=== PATIENT | male | born 1960 | race Caucasian/White ===

== ENCOUNTER 2019-04-18 15:38 | Inpatient (IN) | payer MEDICARE ==
[~2019-04-18] VITALS: Ht 175.3 cm; Wt 68.5 kg
[2019-04-18] MEDS ORDERED: ONDANSETRON HCL INJ 2MG/ML 2ML 2 MG/ML VIAL IV STA (15:40)
[2019-04-18] MEDS ORDERED: SODIUM CHLORIDE 0.9% 1000ML 1,000 ML IV STA ×2 (15:40→18:19)
--- OUTSIDE RECORDS SUMMARY | 2019-04-18 15:42 | XMS REPORT ---
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 4.5-12.5 RED BLOOD CELL (test code=RBC) 3.98 mill/mm3 4.0-5.8 HEMOGLOBIN (test code=HGB) 11.4 gram/dL 13.0-17.5 HEMATOCRIT (test code=HCT) 34.4 % 42.0-52.0 MEAN CELL VOLUME (test code=MCV) 86.4 fL 80-98 MEAN CELL HGB (test code=MCH) 28.6 picogram 27.0-33.0 MEAN CELL HGB CONCETRATION (test code=MCHC) 33.1 gram/dL 33.0-36.0 RED CELL DISTRIBUTION WIDTH (test code=RDW) 13.8 % 11.6-16.2 PLATELET COUNT (test code=PLT) 105 K/mm3 150-450 MEAN PLATELET VOLUME (test code=MPV) 11.0 fL 6.7-11.0 PT WAS A HARD STICK, WAS TOLD TO COME AFTER LUNCH. [facility] [place] [facility] V.LAB.PR [id number] 12:31:00* Test Item Value Reference Range Comments GLUBED (test code=GLUBED) 33 mg/dL 74-106 Test performed as P.O.C. by nursing staff.[facility] certified [facility] [id number] 12:10:00* Test Item Value Reference Range Comments GLUBED (test code=GLUBED) 27 mg/dL 74-106 Test performed as P.O.C. by nursing staff.Performed by certified power barker operator at [facility] [id number] 12:10:00* Test Item Value Reference Range Comments GLUBED (test code=GLUBED) 31 mg/dL 74-106 Test performed as P.O.C. by nursing staff.Performed by certified power barker operator [facility]~ [id number] 08:33:00* Test Item Value Reference Range Comments GLUBED (test code=GLUBED) 207 mg/dL 74-106 Performed by certified power barker operator at [facility] [id number] 21:46:00* Test Item Value Reference Range Comments GLUBED (test code=GLUBED) 233 mg/dL 74-106 Performed by certified power barker operator at [facility] [id number] 16:02:00* Test Item Value Reference Range Comments GLUBED (test code=GLUBED) 75 mg/dL 74-106 Performed by certified power barker operator at [facility] [id number] 11:42:00* Test Item Value Reference Range Comments GLUBED (test code=GLUBED) 285 mg/dL 74-106 Performed by certified power barker operator at [facility] [id number] 09:13:00* Test Item Value Reference Range Comments GLUBED (test code=GLUBED) 295 mg/dL 74-106 Performed by certified power barker operator at [facility] [id number] 19:55:00* Test Item Value Reference Range Comments GLUBED (test code=GLUBED) 143 mg/dL 74-106 Performed by certified power barker operator at [facility] [id number] 17:13:00* Test Item Value Reference Range Comments GLUBED (test code=GLUBED) 83 mg/dL 74-106 Performed by certified power barker operator at [facility] [id number] 12:12:00* Test Item Value Reference Range Comments GLUBED (test code=GLUBED) 243 mg/dL 74-106 Performed by certified power barker operator at [facility] [id number] 08:24:00* Test Item Value Reference Range Comments GLUBED (test code=GLUBED) 357 mg/dL 74-106 Performed by certified power barker operator at [facility] [id number] 20:51:00* Test Item Value Reference Range Comments GLUBED (test code=GLUBED) 288 mg/dL 74-106 [facility]formed by certified power barker operator [facility]~ T4 [id number] 18:07:00* Test Item Value Reference Range Comments T4 FREE (test code=T4F) 1.39 ng/dL 0.76-1.46 THYROID STIMULATING [id number] 18:07:00* Test Item Value Reference Range Comments THYROID STIMULATING HORMONE (test code=TSH) 0.255 uIU/mL 0.36-3.74 TSH REFERENCE RANGES: EUTHYROID: 0.35 - 4.3 mIU/mL HYPO : > 5.5 mIU/mL HYPER : < 0.35 mIU/mL [id number] 17:17:00* Test Item Value Reference Range Comments GLYCOSYLATED HEMOGLOBIN (HA1C) (test code=GLYHGB) 13.3 % HbA1 4.8-6.0 ESTIMATED AVERAGE GLUCOSE (test code=EAG) 335 MG/DL [id number] 15:45:00* Test Item Value Reference Range Comments GLUBED (test code=GLUBED) 349 mg/dL 74-106 Performed by certified power barker operator [facility] BASIC METABOLIC [id number] 07:08:00* Test Item Value Reference Range Comments SODIUM (test code=NA) 136 mmol/L 136-145 POTASSIUM (test code=K) 4.1 mmol/L 3.5-5.1 CHLORIDE (test code=CL) 103.0 mmol/L 98-107 CARBON DIOXIDE (test code=CO2) 21.0 mmol/L 21-32 ANION GAP (test code=GAP) 16.1 10-20 GLUCOSE (test code=GLU) 276 mg/dL 74-106 BLOOD UREA NITROGEN (test code=BUN) 23 mg/dL 7-18 GLOMERULAR FILTRATION RATE (test code=GFR) > 60 mL/min >=60 Estimated GFR by using Modified MDRD formula.Chronic kidney disease is defined as either kidney damageor GFR <60 mL/min/1.73 m2 for >3 months. CREATININE (test code=CREAT) 1.20 mg/dL 0.7-1.3 BUN/CREATININE RATIO (test code=BUN/CREA) 19.2 10-20 CALCIUM (test code=CA) 8.9 mg/dL 8.5-10.1 [id number] 07:02:00* Test Item Value Reference Range Comments GLYCOSYLATED HEMOGLOBIN (HA1C) (test code=GLYHGB) 13.2 % HbA1 4.8-6.0 ESTIMATED AVERAGE GLUCOSE (test code=EAG) 332 MG/DL BASIC METABOLIC [id number] 07:02:00* Test Item Value Reference Range Comments SODIUM (test code=NA) 136 mmol/L 136-145 POTASSIUM (test code=K) 4.1 mmol/L 3.5-5.1 CHLORIDE (test code=CL) 103.0 mmol/L 98-107 CARBON DIOXIDE (test code=CO2) mmol/L 21-32 ANION GAP (test code=GAP) 10-20 GLUCOSE (test code=GLU) mg/dL 74-106 BLOOD UREA NITROGEN (test code=BUN) mg/dL 7-18 GLOMERULAR FILTRATION RATE (test code=GFR) mL/min >=60 CREATININE (test code=CREAT) mg/dL 0.7-1.3 BUN/CREATININE RATIO (test code=BUN/CREA) 10-20 CALCIUM (test code=CA) mg/dL 8.5-10.1 CBC W/AUTO [id number] 06:46:00* Test Item Value Reference Range Comments WHITE BLOOD CELL (test code=WBC) 7.4 K/mm3 4.5-12.5 RED BLOOD CELL (test code=RBC) 4.41 mill/mm3 4.0-5.8 HEMOGLOBIN (test code=HGB) 12.6 gram/dL 13.0-17.5 HEMATOCRIT (test code=HCT) 38.6 % 42.0-52.0 MEAN CELL VOLUME (test code=MCV) 87.5 fL 80-98 MEAN CELL HGB (test code=MCH) 28.6 picogram 27.0-33.0 MEAN CELL HGB CONCETRATION (test code=MCHC) 32.6 gram/dL 33.0-36.0 RED CELL DISTRIBUTION WIDTH (test code=RDW) 13.7 % 11.6-16.2 RED CELL DISTRIBUTION WIDTH SD (test code=RDW-SD) 43.7 fL 37.0-51.0 PLATELET COUNT (test code=PLT) 140 K/mm3 150-450 MEAN PLATELET VOLUME (test code=MPV) 10.1 fL 6.7-11.0 NEUTROPHIL % (test code=NT%) 57.8 % 39.0-69.0 IMMATURE GRANULOCYTE % (test code=IG%) 0.5 % 0.0-5.0 LYMPHOCYTE % (test code=LY%) 33.9 % 25.0-55.0 MONOCYTE % (test code=MO%) 6.9 % 0.0-10.0 EOSINOPHIL % (test code=EO%) 0.5 % 0.0-5.0 BASOPHIL % (test code=BA%) 0.4 % 0.0-1.0 NUCLEATED RBC % (test code=NRBC%) 0.0 % 0-0 NEUTROPHIL # (test code=NT#) 4.25 K/mm3 1.8-7.7 IMMATURE GRANULOCYTE # (test code=IG#) 0.04 x10 3/uL 0-0.03 LYMPHOCYTE # (test code=LY#) 2.50 K/mm3 1.0-5.0 MONOCYTE # (test code=MO#) 0.51 K/mm3 0-0.8 EOSINOPHIL # (test code=EO#) 0.04 K/mm3 0.0-0.5 BASOPHIL # (test code=BA#) 0.03 K/mm3 0.0-0.2 NUCLEATED RBC # (test code=NRBC#) 0.00 K/mm3 0.0-0.1 MANUAL DIFF REQUIRED (test code=MDIFF) NO [id number] 20:23:00* Test Item Value Reference Range Comments GLUBED (test code=GLUBED) 234 mg/dL 74-106 [facility] certified power barker operator [facility]~ [id number] 16:19:00* Test Item Value Reference Range Comments GLUBED (test code=GLUBED) 209 mg/dL 74-106 Performed by certified power barker operator at [facility] [id number] 14:12:00* Test Item Value Reference Range Comments GLUBED (test code=GLUBED) 254 mg/dL 74-106 Performed by certified power barker operator at [facility] [id number] 06:45:00* Test Item Value Reference Range Comments GLUBED (test code=GLUBED) 275 mg/dL 74-106 Performed by certified power barker operator at [facility] - CT ABD PELVIS W/O [id number] 02:27:00 Name: ISAIAS RAMOS JR [facility] : 1960 Age/S: 57 / M [address] [facility] Unit #: [id number] Loc: [place] [address] Phys: Cydney Antonio MD Acct: [id number] Dis Date: Status: ADM IN PHONE #: [phone] Exam Date: 09/01/2018114 FAX #: [phone] Reason: vomiting, diarrhea EXAMS: CPT CODE: [id number] CT ABD PELVIS W/O CONT 17179 AFTER HOURS SERVICE ON: 09/01/2018 2:[address] Scan of the Abdomen and Pelvis Without Contrast Location Code M12 History: vomiting, diarrhea Technique: Axial and reconstructed coronal scans were performed on a helical scanner pre oral and IV contrast. Study is limited secondary to lack of oral and IV contrast. One or more of the following dose reduction techniques were used: Automated exposure control, adjustment of the mA and/or kV according to patient size, and/or utilization of iterative reconstruction technique. Findings: There is trace pericardial effusion. Liver, gallbladder, pancreas and spleen are within normal limits. Adrenal glands are symmetric. There is no hydronephrosis or nephrolithiasis in either kidney. There is fullness in the right collecting system due to a circumferential wall thickening of the urinary bladder. There is faint surrounding stranding. Diverticular changes noted in the sigmoid colon without evidence of diverticulitis. There is no bowel obstruction or free air. The appendix is not visua lized. IMPRESSION: Mild fullness in the right renal co llecting system due to circumferential thickening of the bladder which m ay be due to cystitis, however further evaluation is recommended. Diffe rential diagnosis includes chronic obstruction or less likely underlying malignancy. Nonvisualization of the appendix. Trace pericardial effusion. PAGE 1 Si gned Report (CONTINUED) Name: ISAIAS RAMOS [facility] : 1960 Age/S: 57 / M [address] [facility] Unit #: [id number] Loc: [place] [address] Phys: Cydney Antonio MD Acct: [id number] Dis Date: Status: ADM IN PHONE #: [phone] Exam Date: 09/01/2018 011 FAX #: [phone] Reason: vomiting, diarrhea EXAMS: CPT CODE: [id number] CT ABD PELVIS W/O CONT 12886 <Continued> at 0227 Reported and signed by: Brigida Lewis M.D. CC: Cydney Antonio MD; Jan Corado Technologist:JAN JAMISON CTDI: DLP: Trnscb Date/Time: 09/01/2018 (022) [email or web address] Orig Print D/T: S: 09/01/2018 (0230) PAGE 2 Signed Report BASIC METABOLIC [id number] 00:09:00* Test Item Value Reference Range Comments SODIUM (test code=NA) 137 mmol/L 136-145 POTASSIUM (test code=K) 4.1 mmol/L 3.5-5.1 CHLORIDE (test code=CL) 99.0 mmol/L 98-107 CARBON DIOXIDE (test code=CO2) 21.0 mmol/L 21-32 ANION GAP (test code=GAP) 21.1 10-20 GLUCOSE (test code=GLU) 291 mg/dL 74-106 BLOOD UREA NITROGEN (test code=BUN) 30 mg/dL 7-18 GLOMERULAR FILTRATION RATE (test code=GFR) 52 mL/min >=60 Estimated GFR by using Modified MDRD formula.Chronic kidney disease is defined as either kidney damageor GFR <60 mL/min/1.73 m2 for >3 months. CREATININE (test code=CREAT) 1.40 mg/dL 0.7-1.3 BUN/CREATININE RATIO (test code=BUN/CREA) 22.1 10-20 CALCIUM (test code=CA) 8.9 mg/dL 8.5-10.1 HEPATIC FUNCTION [id number] 00:09:00* Test Item Value Reference Range Comments TOTAL PROTEIN (test code=PROT) 7.6 gram/dL 6.4-8.2 ALBUMIN (test code=ALB) 3.6 g/dL 3.4-5.0 GLOBULIN (test code=GLOB) 4.0 gram/dL 2.7-4.2 ALBUMIN/GLOBULIN RATIO (test code=A/G) 0.9 0.75-1.50 BILIRUBIN TOTAL (test code=BILT) 1.00 mg/dL 0.0-1.0 BILIRUBIN DIRECT (test code=BILD) 0.33 mg/dL 0.0-0.20 SGOT/AST (test code=AST) 20 IUnit/L 15-37 SGPT/ALT (test code=ALT) 34 IUnit/L 12-78 ALKALINE PHOSPHATASE TOTAL (test code=ALKP) 90 IUnit/L 45-117 Note change in reference range due to change in reagent. CREATINE KINASE (CK)2018-09-01 00:09:00* Test Item Value Reference Range Comments CREATINE KINASE (CK) (test code=CK) 19 IUnit/L 26-208 [id number] 00:09:00* Test Item Value Reference Range Comments LIPASE (test code=LIP) 107 U/L 73.0-393.0 [id number] 00:09:00* Test Item Value Reference Range Comments MAGNESIUM (test code=MAG) 2.3 mg/dL 1.8-2.4 [id number] 00:09:00* Test Item Value Reference Range Comments TROPONIN-I (test code=TROPI) <0.015 ng/mL 0-0.045 [id number] 00:09:00* Test Item Value Reference Range Comments ALCOHOL (test code=ALC) < 3 mg/dL 0.0-3.0 INTERPRETIVE DATA NOTE: POSITIVE SCREENING RESULTS SHOULD BE CONSIDERED PRESUMPTIVE.WHEN COLLECTED FOR MEDICAL PURPOSES ONLY. SPECIMEN WILL NOTBE COLLECTED BY CHAIN OF CUSTODY.IF A CONFIRMATION OF POSITIVE RESULTS IS DESIRED, ACONFIRMATION TEST MUST BE REQUESTED BY THE PHYSICIAN AT ANADDITIONAL CHARGE TO THE PATIENT. BASIC METABOLIC [id number] 23:46:00* Test Item Value Reference Range Comments SODIUM (test code=NA) 137 mmol/L 136-145 POTASSIUM (test code=K) 4.1 mmol/L 3.5-5.1 CHLORIDE (test code=CL) 99.0 mmol/L 98-107 CARBON DIOXIDE (test code=CO2) mmol/L 21-32 ANION GAP (test code=GAP) 10-20 GLUCOSE (test code=GLU) mg/dL 74-106 BLOOD UREA NITROGEN (test code=BUN) mg/dL 7-18 GLOMERULAR FILTRATION RATE (test code=GFR) mL/min >=60 CREATININE (test code=CREAT) mg/dL 0.7-1.3 BUN/CREATININE RATIO (test code=BUN/CREA) 10-20 CALCIUM (test code=CA) mg/dL 8.5-10.1 HEPATIC FUNCTION [id number] 23:46:00* Test Item Value Reference Range Comments TOTAL PROTEIN (test code=PROT) gram/dL 6.4-8.2 ALBUMIN (test code=ALB) g/dL 3.4-5.0 GLOBULIN (test code=GLOB) gram/dL 2.7-4.2 ALBUMIN/GLOBULIN RATIO (test code=A/G) 0.75-1.50 BILIRUBIN TOTAL (test code=BILT) mg/dL 0.0-1.0 BILIRUBIN DIRECT (test code=BILD) mg/dL 0.0-0.20 SGOT/AST (test code=AST) IUnit/L 15-37 SGPT/ALT (test code=ALT) IUnit/L 12-78 ALKALINE PHOSPHATASE TOTAL (test code=ALKP) IUnit/L 45-117 CREATINE KINASE (CK)2018-08-31 23:46:00* Test Item Value Reference Range Comments CREATINE KINASE (CK) (test code=CK) IUnit/L 26-208 [id number] 23:46:00* Test Item Value Reference Range Comments LIPASE (test code=LIP) U/L 73.0-393.0 [id number] 23:46:00* Test Item Value Reference Range Comments MAGNESIUM (test code=MAG) mg/dL 1.8-2.4 [id number] 23:46:00* Test Item Value Reference Range Comments TROPONIN-I (test code=TROPI) ng/mL 0-0.045 [id number] 23:46:00* Test Item Value Reference Range Comments ALCOHOL (test code=ALC) mg/dL 0-3 URINALYSIS [id number] 23:42:00* Test Item Value Reference Range Comments UA COLOR (test code=COLU) YELLOW YELLOW UA APPEARANCE (test code=APPU) Cloudy CLEAR UA GLUCOSE DIPSTICK (test code=DGLUU) >1000 (4+) mg/dL NEGATIVE UA BILIRUBIN DIPSTICK (test code=BILU) NEGATIVE mg/dL NEGATIVE UA KETONE DIPSTICK (test code=KETU) 100 (3+) mg/dL NEGATIVE UA SPECIFIC GRAVITY (test code=SGU) 1.025 1.001-1.035 UA BLOOD DIPSTICK (test code=ZOILA) >1.0 mg/dL NEGATIVE UA PH DIPSTICK (test code=ALEXY) 5.5 5.0-8.0 UA PROTEIN DIPSTICK (test code=PROU) 100 (2+) mg/dL NEGATIVE UA UROBILINIOGEN DIPSTICK (test code=URO) Normal mg/dL NEGATIVE UA NITRITE DIPSTICK (test code=CHATO) NEGATIVE NEGATIVE UA LEUKOCYTE ESTERASE W REFLEX (test code=LEUUR) 500 Ivtaly/uL (3+) Vitaly/uL NEGATIVE UA WBC (test code=WBCU) 51-100 per HPF 0-5 UA RBC (test code=RBCU) >200 #/HPF 0-5 UA WBC CLUMPS (test code=WBCUCL) >10 /HPF NONE UA EPITHELIAL CELLS (test code=EPIU) FEW per HPF FEW UA BACTERIA (test code=BACU) MODERATE #/HPF NONE Urine Source? Clean CatchDRUGS OF ABUSE SCREEN [id number] 23:42:00* Test Item Value Reference Range Comments URN COCAINE (test code=COCAURN) NEGATIVE <300 ng/mL URN CANNABINOIDS (test code=CANNABURN) POSITIVE <50 ng/mL This test provides only a preliminary test result. A morespecific alternate chemical method must be used in order toobtain a confirmed analytical result. Gas chromatography/mass spectrometry (GC/MS) is thepreferred confirmatory method. Other chemical confirmationmethods are available. Clinical consideration and professional judgment should be applied to any drug of abusetest result, particularly when preliminary positive resultsare used.Unconfirmed screening results must not be used fornon-medical purposes (e.g., employment testing, legaltesting). URN AMPHETAMINE (test code=AMPHETURN) NEGATIVE <1000 ng/mL URN BARBITURATE (test code=BARBITURN) NEGATIVE <200 ng/mL URN BENZODIAZEPINE (test code=BENZOURN) NEGATIVE <200 ng/mL URN OPIATES (test code=OPIATURN) NEGATIVE <300 ng/mL URN PHENCYCLIDINE (PCP) (test code=PHENCURN) NEGATIVE <25 ng/mL URN METHADONE (test code=METHAURN) NEGATIVE <300 ng/mL Urine Source? Clean Catch- XR CHEST 1 [id number] 23:31:00 FAX: Cydney Mistry [phone] [place]: St: REG FAX: Jan Corado [phone] Name: ISAIAS RAMOS JR [facility] : 1960 Age/S: 57/M [address] [facility] Unit #: [id number] Loc: [place] [address] Phys: Cydney Antonio MD Acct: [id number] Dis Date: Status: REG ER PHONE #: [phone] Exam Date: 08/31/2018 2243 FAX #: [phone] Reason: WEAKNESS EXAMS: CPT CODE: [id number] XR CHEST 1 V 85925 REASON FOR EXAM: WEAKNESS Exam Order Date: 08/31/2018 10:39 PM Ordering Evie.: Cydney Antonio MD PROCEDURE: - XR CHEST 1 V COMPARISON: FINDINGS: The lungs are clear. There is no pleural effusion or pneumothorax. Pulmonary vascularity is within normal limits. Cardiomediastinal silhouette is normal in size for technique. The aorta is slightly tortu ous. Degenerative changes are present in the bilateral acromioclav icular joints. The visualized upper abdomen is within normal limits. IMPRESSION: No acute cardiopulmonary process. at 2331 Reported and signed by: Jamison Bowser MD CC: Cydney Antonio MD; Jan Corado Technologist: RT SOFIA Trnscrd Date/Time/By: 08/31/2018 (4490) : By: [id number] Orig Print D/T: S: 08/31/2018 (8008) PAGE 1 Signed Report PROTHROMBIN [id number] 23:23:00* Test Item Value Reference Range Comments PROTHROMBIN TIME PATIENT (test code=PTP) 11.5 seconds 9.0-14.0 INTERNATIONAL NORMAL RATIO (test code=INR) 1.0 0.8-1.2 The therapeutic range for oral anticoagulant therapy formost indications is an international normalized ratio (INR)of between 2.0 and 3.0. The recommended therapeutic INRrange for various clinical situations is listed below: Clinical Situation INR range Pulmonary e mbolism treatment (2.0-3.0)Venous thrombosis treatmentVenous thrombosis prophylaxis (high risk surgery)Prevention of systemic embolism from: Acute myocardial infarction Valvular heart disease Atrial fibrillation Mechanical prosthetic heart valves (2.5-3.5) IS PATIENT ON ANTICOAGULANTS? NTHROMBOPLASTIN TIME [id number] 23:23:00* Test Item Value Reference Range Comments THROMBOPLASTIN TIME PARTIAL (test code=PTT) 30.0 seconds 25.0-36.5 IS PATIENT ON ANTICOAGULANTS? N- CT C-SPINE W/O [id number] 23:18:00 Name: ISAIAS RAMOS [facility] : 1960 Age/S: 57 / M [address] [facility] Unit #: [id number] Loc: [place] [address] Phys: Bharathi Antonio MD Acct: [id number] Di s Date: Status: REG ER PHONE #: Exam Date: 08/31/2018 6918 FAX #: Reason: fall EXAMS: CPT CODE: [id number] CT C-SPINE W/O CONTRAST 56724 AFTER HOURS SERVICE ON: 11:[address] Scan of the Brain Without Contrast Location Code M12 History: fall Technique: Scans were performed on a helical scanner pre IV contrast only. The study is l imited secondary to lack of intravenous contrast, particularly for evaluat ion of masses. One or more of the following dose reduction techni ques were used: Automated exposure control, adjustment of the mA and/or kV according to patient size, and/or utilization of iterative reconstruction technique. Findings: There is no hydrocephal us. Basal cisterns are patent. There is no intracranial hyperdense hemorrh age. There is no midline shift or mass effect. No effacement of the coreas-w carmel matter junction to indicate acute infarction. There are chronic ische karlee white matter changes. There is no skull fracture. Impr ession: No skull fracture or intracranial hemorrhage. AFTER HOURS SERVICE ON: 08/31/2018 11:[address] of the Cervical Spine Without Contrast Location Code M12 History: fall Technique: Scans were obtained on a helical scanner pre IV contrast PAGE 1 Signed Report (CONTINUED) Name: ISAIAS RAMOS [facility] : 1960 Age/S: 57 / M [address] [facility] Unit #: [id number] Loc: [place] [address] Phys: Cydney Antonio MD Acct: [id number] Dis Date: Status: REG ER PHONE #: [phone] Exam D ate: 08/31/2018 2249 FAX #: [phone] Reason: fall EXAMS: CPT CODE: [id number] CT C-SPINE W/O CONTRAST 54641 <Continued> only. One or more of the following dose reduction techniques were used: Automated exposure control, adjustment of the mA and/or kV according to patient size, and/or utilization of iterative reconstruction technique. Findings: Craniocervical junction is intact. Atlantoaxial joint is unremarkable. C1 ring is normal. Dens is intact. Transverse processes, pedicles and lamina are intact. No compression fracture or pathologic lesions. There is advanced cervical spondylosis including disc space narrowing and endplate spurring in C4-C5 and C5-C6. Central canal stenosis noted at these levels addition to multilevel foraminal stenoses due to uncovertebral hypertrophy. The foraminal stenoses are fairly advanced at the level of C3-C4, C4-C5 and C5-C6. Impression: No cervical spine fracture. at 2318 Reported and signed by: Brigida Lewis M.D. CC: Cydney Antonio MD; Jan Corado Technologist:SANJU DE LEON, RT; [facility] CTDI: DLP: Trnscb Date/Time: 08/31/2018 (2317) t.SDR.[email or web address] Orig Print D/T: S: 08/31/2018 (3232) PAGE 2 Signed Report - CT HEAD/BRAIN W/O [id number] 23:18:00 Name: ISAIAS RAMOS JR [facility] : 1960 Age/S: 57 / M [address] [facility] Unit #: [id number] Loc: [place] [address] Phys: Cydney Antonio MD Acct: [id number] Dis Date: Status: REG ER PHONE #: [phone] Exam Date: 08/31/2018 2249 FAX #: [phone] Reason: fall EXAMS: CPT CODE: [id number] CT HEAD/BRAIN W/O CONT 54939 AFTER HOURS SERVICE ON: 08/31/2018 11:[address] Scan of the Brain Without Contrast Location Code M12 History: fall Technique: Scans were performed on a helical scanner pre IV contrast only. The study is limited secondary to lack of intravenous contrast, particularly for evaluation of masses. One or more of the following dose reduction techniques were used: Automated exposure control, adjustment of the mA and/or kV according to patient size, and/or utilization of iterative reconstruction technique. Findings: There is no hydrocephalus. Basal cisterns are patent. There is no intracranial hyperdense hemorrhage. There is no midline shift or mass effect. No effacement of the coreas-white matter junction to indicate acute infarction. There are chronic ischemic white matter changes. There is no skull fracture. Impression: No skull fracture or intracranial hemorrhage. AFTER HOURS SERVICE ON: 08/31/2018 11:[address] of the Cervical Spine Without Contrast Location Code M12 History: fall Technique: Scans were obtained on a helical scanner pre IV contrast PAGE 1 Signed Report (CONTINUED) Name: ISAIAS RAMOS JR [facility] : 1960 Age/S: 57 / M [address] [facility] Unit #: [id number] Loc: [place] [address] Phys: Cydney Antonio MD Acct: [id number] Dis Date: Status: REG ER PHONE #: [phone] Exam Date: 08/31/20183 FAX #: [phone] Reason: fall EXAMS: CPT CODE: [id number] CT HEAD/BRAIN W/O CONT 32865 <Continued> only. One or more of the following dose reduction techniques were used: Automated exposure control, adjustment of the mA and/or kV according to patient size, and/or utilization of iterative reconstruction technique. Findings: Craniocervical junction is intact. Atlantoaxial joint is unremarkable. C1 ring is normal. Dens is intact. Transverse processes, pedicles and lamina are intact. No compression fracture or pathologic lesions. There is advanced cervical spondylosis including disc space narrowing and endplate spurring in C4-C5 and C5-C6. Central canal stenosis noted at these levels addition to multilevel foraminal stenoses due to uncovertebral hypertrophy. The foraminal stenoses are fairly advanced at the level of C3-C4, C4-C5 and C5-C6. Impression: No cervical spine fracture. at 2318 Reported and signed by: Brigida Lewis M.D. CC: Cydney Antonio MD; Jan Corado Technologist:SANJU DE LEON RT; Ana Maria Montenegro CTDI: DLP: Trnscb Date/Time: 08/31/2018 (2318) [email or web address] Orig Print D/T: S: 08/31/2018 (5424) PAGE 2 Signed Report URINALYSIS [id number] 23:17:00* Test Item Value Reference Range Comments UA COLOR (test code=COLU) YELLOW YELLOW UA APPEARANCE (test code=APPU) Cloudy CLEAR UA GLUCOSE DIPSTICK (test code=DGLUU) >1000 (4+) mg/dL NEGATIVE UA BILIRUBIN DIPSTICK (test code=BILU) NEGATIVE mg/dL NEGATIVE UA KETONE DIPSTICK (test code=KETU) 100 (3+) mg/dL NEGATIVE UA SPECIFIC GRAVITY (test code=SGU) 1.025 1.001-1.035 UA BLOOD DIPSTICK (test code=ZOILA) >1.0 mg/dL NEGATIVE UA PH DIPSTICK (test code=ALEXY) 5.5 5.0-8.0 UA PROTEIN DIPSTICK (test code=PROU) 100 (2+) mg/dL NEGATIVE UA UROBILINIOGEN DIPSTICK (test code=URO) Normal mg/dL NEGATIVE UA NITRITE DIPSTICK (test code=CHATO) NEGATIVE NEGATIVE UA LEUKOCYTE ESTERASE W REFLEX (test code=LEUUR) 500 Vitaly/uL (3+) Vitaly/uL NEGATIVE UA WBC (test code=WBCU) 51-100 per HPF 0-5 UA RBC (test code=RBCU) >200 #/HPF 0-5 UA WBC CLUMPS (test code=WBCUCL) >10 /HPF NONE UA EPITHELIAL CELLS (test code=EPIU) FEW per HPF FEW UA BACTERIA (test code=BACU) MODERATE #/HPF NONE Urine Source? Clean CatchDRUGS OF ABUSE SCREEN [id number] 23:17:00* Test Item Value Reference Range Comments URN COCAINE (test code=COCAURN) <300 ng/mL URN CANNABINOIDS (test code=CANNABURN) <50 ng/mL URN AMPHETAMINE (test code=AMPHETURN) <1000 ng/mL URN BARBITURATE (test code=BARBITURN) <200 ng/mL URN BENZODIAZEPINE (test code=BENZOURN) <200 ng/mL URN OPIATES (test code=OPIATURN) <300 ng/mL URN PHENCYCLIDINE (PCP) (test code=PHENCURN) <25 ng/mL URN METHADONE (test code=METHAURN) <300 ng/mL Urine Source? Clean CatchCBC W/O [id number] 23:12:00* Test Item Value Reference Range Comments WHITE BLOOD CELL (test code=WBC) 8.3 K/mm3 4.5-12.5 RED BLOOD CELL (test code=RBC) 4.68 mill/mm3 4.0-5.8 HEMOGLOBIN (test code=HGB) 13.4 gram/dL 13.0-17.5 HEMATOCRIT (test code=HCT) 40.1 % 42.0-52.0 MEAN CELL VOLUME (test code=MCV) 85.7 fL 80-98 MEAN CELL HGB (test code=MCH) 28.6 picogram 27.0-33.0 MEAN CELL HGB CONCETRATION (test code=MCHC) 33.4 gram/dL 33.0-36.0 RED CELL DISTRIBUTION WIDTH (test code=RDW) 13.8 % 11.6-16.2 PLATELET COUNT (test code=PLT) 178 K/mm3 150-450 MEAN PLATELET VOLUME (test code=MPV) 10.3 fL 6.7-11.0 CBC W/O [id number] 23:11:00* Test Item Value Reference Range Comments WHITE BLOOD CELL (test code=WBC) K/mm3 4.5-12.5 RED BLOOD CELL (test code=RBC) mill/mm3 4.0-5.8 HEMOGLOBIN (test code=HGB) 13.4 gram/dL 13.0-17.5 HEMATOCRIT (test code=HCT) % 42.0-52.0 MEAN CELL VOLUME (test code=MCV) fL 80-98 MEAN CELL HGB (test code=MCH) picogram 27.0-33.0 MEAN CELL HGB CONCETRATION (test code=MCHC) gram/dL 33.0-36.0 RED CELL DISTRIBUTION WIDTH (test code=RDW) % 11.6-16.2 PLATELET COUNT (test code=PLT) K/mm3 150-450 MEAN PLATELET VOLUME (test code=MPV) fL 6.7-11.0 [id number] 23:26:00* Test Item Value Reference Range Comments GLUBED (test code=GLUBED) 412 mg/dL 74-106 Performed by certified power barker operator at [facility] [id number] 23:26:00* Test Item Value Reference Range Comments GLUBED (test code=GLUBED) 481 mg/dL 74-106 Performed by certified power barker operator at [facility] DRUGS OF ABUSE SCREEN [id number] 22:51:00* Test Item Value Reference Range Comments UA PH DIPSTICK (test code=ALEXY) 7.0 5.0-8.0 URN COCAINE (test code=COCAURN) NEGATIVE <300 ng/mL URN CANNABINOIDS (test code=CANNABURN) POSITIVE <50 ng/mL This test provides only a preliminary test result. A morespecific alternate chemical method must be used in order toobtain a confirmed analytical result. Gas chromatography/mass spectrometry (GC/MS) is thepreferred confirmatory method. Other chemical confirmationmethods are available. Clinical consideration and professional judgment should be applied to any drug of abusetest result, particularly when preliminary positive resultsare used.Unconfirmed screening results must not be used fornon-medical purposes (e.g., employment testing, legaltesting). URN AMPHETAMINE (test code=AMPHETURN) NEGATIVE <1000 ng/mL URN BARBITURATE (test code=BARBITURN) NEGATIVE <200 ng/mL URN BENZODIAZEPINE (test code=BENZOURN) NEGATIVE <200 ng/mL URN OPIATES (test code=OPIATURN) NEGATIVE <300 ng/mL URN PHENCYCLIDINE (PCP) (test code=PHENCURN) NEGATIVE <25 ng/mL URN METHADONE (test code=METHAURN) NEGATIVE <300 ng/mL URINALYSIS [id number] 22:50:00* Test Item Value Reference Range Comments UA COLOR (test code=COLU) Light-Yellow YELLOW UA APPEARANCE (test code=APPU) CLEAR CLEAR UA GLUCOSE DIPSTICK (test code=DGLUU) >1000 (4+) mg/dL NEGATIVE UA BILIRUBIN DIPSTICK (test code=BILU) NEGATIVE mg/dL NEGATIVE UA KETONE DIPSTICK (test code=KETU) NEGATIVE mg/dL NEGATIVE UA SPECIFIC GRAVITY (test code=SGU) 1.029 1.001-1.035 UA BLOOD DIPSTICK (test code=ZOILA) 1.0 mg/dL (3+) mg/dL NEGATIVE UA PH DIPSTICK (test code=ALEXY) 7.0 5.0-8.0 UA PROTEIN DIPSTICK (test code=PROU) 10 (Trace) mg/dL NEGATIVE UA UROBILINIOGEN DIPSTICK (test code=URO) Normal mg/dL NEGATIVE UA NITRITE DIPSTICK (test code=CHATO) NEGATIVE NEGATIVE UA LEUKOCYTE ESTERASE W REFLEX (test code=LEUUR) 500 Vitaly/uL (3+) Vitaly/uL NEGATIVE UA WBC (test code=WBCU) 151-200 per HPF 0-5 UA RBC (test code=RBCU) >20 #/HPF 0-5 UA EPITHELIAL CELLS (test code=EPIU) FEW per HPF FEW UA BACTERIA (test code=BACU) FEW #/HPF NONE UA HYALINE CAST (test code=HYALU) 0-2 #/LPF 0-5 Urine Source? Clean CatchDRUGS OF ABUSE SCREEN [id number] 22:45:00* Test Item Value Reference Range Comments UA PH DIPSTICK (test code=ALEXY) 5.0-8.0 URN COCAINE (test code=COCAURN) NEGATIVE <300 ng/mL URN CANNABINOIDS (test code=CANNABURN) POSITIVE <50 ng/mL This test provides only a preliminary test result. A morespecific alternate chemical method must be used in order toobtain a confirmed analytical result. Gas chromatography/mass spectrometry (GC/MS) is thepreferred confirmatory method. Other chemical confirmationmethods are available. Clinical consideration and professional judgment should be applied to any drug of abusetest result, particularly when preliminary positive resultsare used.Unconfirmed screening results must not be used fornon-medical purposes (e.g., employment testing, legaltesting). URN AMPHETAMINE (test code=AMPHETURN) NEGATIVE <1000 ng/mL URN BARBITURATE (test code=BARBITURN) NEGATIVE <200 ng/mL URN BENZODIAZEPINE (test code=BENZOURN) NEGATIVE <200 ng/mL URN OPIATES (test code=OPIATURN) NEGATIVE <300 ng/mL URN PHENCYCLIDINE (PCP) (test code=PHENCURN) NEGATIVE <25 ng/mL URN METHADONE (test code=METHAURN) NEGATIVE <300 ng/mL [id number] 22:39:00* Test Item Value Reference Range Comments TROPONIN-I (test code=TROPI) <0.015 ng/mL 0-0.045 BASIC METABOLIC [id number] 18:55:00* Test Item Value Reference Range Comments SODIUM (test code=NA) 134 mmol/L 136-145 POTASSIUM (test code=K) 4.9 mmol/L 3.5-5.1 CHLORIDE (test code=CL) 98.0 mmol/L 98-107 CARBON DIOXIDE (test code=CO2) 30.0 mmol/L 21-32 ANION GAP (test code=GAP) 10.9 10-20 GLUCOSE (test code=GLU) 550 mg/dL 74-106 Results called to by ANTHONY 06/21/18 1855Critical results verified and read back by Nurse? Y BLOOD UREA NITROGEN (test code=BUN) 26 mg/dL 7-18 GLOMERULAR FILTRATION RATE (test code=GFR) 52 mL/min >=60 Estimated GFR by using Modified MDRD formula.Chronic kidney disease is defined as either kidney damageor GFR <60 mL/min/1.73 m2 for >3 months. CREATININE (test code=CREAT) 1.40 mg/dL 0.7-1.3 BUN/CREATININE RATIO (test code=BUN/CREA) 18.6 10-20 CALCIUM (test code=CA) 9.2 mg/dL 8.5-10.1 [id number] 18:55:00* Test Item Value Reference Range Comments TROPONIN-I (test code=TROPI) <0.015 ng/mL 0-0.045 BASIC METABOLIC [id number] 18:31:00* Test Item Value Reference Range Comments SODIUM (test code=NA) 134 mmol/L 136-145 POTASSIUM (test code=K) 4.9 mmol/L 3.5-5.1 CHLORIDE (test code=CL) 98.0 mmol/L 98-107 CARBON DIOXIDE (test code=CO2) mmol/L 21-32 ANION GAP (test code=GAP) 10-20 GLUCOSE (test code=GLU) mg/dL 74-106 BLOOD UREA NITROGEN (test code=BUN) mg/dL 7-18 GLOMERULAR FILTRATION RATE (test code=GFR) mL/min >=60 CREATININE (test code=CREAT) mg/dL 0.7-1.3 BUN/CREATININE RATIO (test code=BUN/CREA) 10-20 CALCIUM (test code=CA) 9.2 mg/dL 8.5-10.1 [id number] 18:31:00* Test Item Value Reference Range Comments TROPONIN-I (test code=TROPI) ng/mL 0-0.045 - XR RIBS UNI 2 V [id number] 18:31:00 FAX: Eugene Carreon [place]: St: REG FAX: Jan Corado [facility] [phone] Name: RACHELISAIAS [facility] : 1960 Age/S: 57/M [address] [facility] Unit #: [id number] Loc: [place] [address] Phys: Eugene Carreon MD Acct: [id number] Dis Date: Status: REG ER PHONE #: [phone] Exam Date: 06/21/2018 1757 FAX #: [phone] Reason: fall, pain EXAMS: CPT CODE: [id number] XR RIBS UNI 2 [place] [id number] REASON FOR EXAM: fall, pain EXAM ORDER DATE: 06/21/2018 5:34 PM Ordering Amrit: Eugene Carreon MD PROCEDURE: - XR RIBS UNI 2 V LT FINDINGS: 5 views of the frontal view of the chest and left ribs were obtained. The osseous structures are unremarkable in size and shape. No evidence of pneumothorax or hemothorax. No evidence of displaced rib fracture. IMPRESSION: Unremarkable left ribs at 1831 Reported and signed by: José Luis Patino M.D. CC: Eugene Carreon MD; Jan Corado [facility] Technologist: Ayala Russ) Trnscrd Date/Time/By: 06/21/2018 (183) : By: Jc Orig Print D/T: S: 06/21/2018 (1833) PAGE 1 Signed Report - XR CHEST 1 [id number] 18:31:00 FAX: Jessica Pereira NP [place]: St: REG FAX: Jan Corado [place] [phone] Name: ISAIAS RAMOS JR [facility] : 1960 Age/S: 57/M [address] [facility] Unit #: [id number] Loc: [place] [address] Phys: Jessica Pereira NP Acct: [id number] Dis Date: Status: REG ER PHONE #: [phone] Exam Date: 06/21/2018 1757 FAX #: [phone] Reason: CHEST PAIN EXAMS: CPT CODE: [id number] XR CHEST 1 V [id number] REASON FOR EXAM: CHEST PAIN EXAM ORDER DATE: 06/21/2018 5:20 PM Ordering M.Lawanda: Jessica Pereira NP PROCEDURE: - XR CHEST 1 V COMPARISON: FINDINGS: Po rtable AP frontal view of the chest obtained at 5:46 PM shows clear lungs without evidence of consolidation. There is no evidence of effusion. The h eart size is within normal limits. Pulmonary vasculatures are unremarkable . IMPRESSION: No active disease. Electronically Sig gama by Amrit Patino on 06/21/2018 at 1831 Reported and s igned by: José Luis Patino M.D. CC: Jessica Pereira EXEC. CREATIVE DIRECTOR; Jan Corado Technologist: Ayala Russ) Trnscrd Date/Time/By: 06/21/2018 (1830) : By: Jc Orig Print D/T: S: 06/21/2018 (183) PAGE 1 Signed Report CBC W/O [id number] 18:20:00* Test Item Value Reference Range Comments WHITE BLOOD CELL (test code=WBC) 6.9 K/mm3 4.5-12.5 RED BLOOD CELL (test code=RBC) 4.36 mill/mm3 4.0-5.8 HEMOGLOBIN (test code=HGB) 12.6 gram/dL 13.0-17.5 HEMATOCRIT (test code=HCT) 39.7 % 42.0-52.0 MEAN CELL VOLUME (test code=MCV) 91.1 fL 80-98 MEAN CELL HGB (test code=MCH) 28.9 picogram 27.0-33.0 MEAN CELL HGB CONCETRATION (test code=MCHC) 31.7 gram/dL 33.0-36.0 RED CELL DISTRIBUTION WIDTH (test code=RDW) 14.5 % 11.6-16.2 PLATELET COUNT (test code=PLT) 154 K/mm3 150-450 MEAN PLATELET VOLUME (test code=MPV) 11.1 fL 6.7-11.0 [id number] 20:37:00* Test Item Value Reference Range Comments GLUBED (test code=GLUBED) 89 mg/dL 74-106 Performed by certified power barker operator at [facility] [id number] 20:37:00* Test Item Value Reference Range Comments GLUBED (test code=GLUBED) 36 mg/dL 74-106 [facility]formed by certified power barker [facility]~ [id number] 20:37:00* Test Item Value Reference Range Comments GLUBED (test code=GLUBED) 34 mg/dL 74-106 Test performed as P.O.C. by nursing staff.Performed by certified power barker operator [facility]~ [id number] 20:37:00* Test Item Value Reference Range Comments GLUBED (test code=GLUBED) 37 mg/dL 74-106 [facility]formed by certified power barker operator [facility]~ [id number] 16:33:00* Test Item Value Reference Range Comments GLUBED (test code=GLUBED) 88 mg/dL 74-106 Performed by certified power barker operator at [facility] [id number] 13:13:00* Test Item Value Reference Range Comments GLUBED (test code=GLUBED) 148 mg/dL 74-106 Performed by certified power barker operator at [facility] [id number] 08:36:00* Test Item Value Reference Range Comments GLUBED (test code=GLUBED) 187 mg/dL 74-106 Performed by certified power barker operator at [facility] [id number] 08:36:00* Test Item Value Reference Range Comments GLUBED (test code=GLUBED) 185 mg/dL 74-106 Performed by certified power barker operator at [facility] [id number] 17:07:00* Test Item Value Reference Range Comments GLUBED (test code=GLUBED) 200 mg/dL 74-106 Performed by certified power barker operator at [facility] [id number] 11:56:00* Test Item Value Reference Range Comments GLUBED (test code=GLUBED) 123 mg/dL 74-106 Performed by certified power barker operator at [facility] [id number] 08:30:00* Test Item Value Reference Range Comments GLUBED (test code=GLUBED) 154 mg/dL 74-106 Performed by certified power barker operator at [facility] [id number] 21:12:00* Test Item Value Reference Range Comments GLUBED (test code=GLUBED) 103 mg/dL 74-106 Performed by certified power barker operator at [facility] [id number] 20:04:00* Test Item Value Reference Range Comments GLUBED (test code=GLUBED) 64 mg/dL 74-106 Performed by certified power barker operator at [facility] [id number] 17:02:00* Test Item Value Reference Range Comments GLUBED (test code=GLUBED) 80 mg/dL 74-106 Performed by certified power barker operator at [facility] [id number] 12:13:00* Test Item Value Reference Range Comments GLUBED (test code=GLUBED) 117 mg/dL 74-106 Performed by certified power barker operator at [facility] [id number] 08:39:00* Test Item Value Reference Range Comments GLUBED (test code=GLUBED) 260 mg/dL 74-106 Performed by certified power barker operator at [facility] [id number] 21:02:00* Test Item Value Reference Range Comments GLUBED (test code=GLUBED) 130 mg/dL 74-106 Performed by certified power barker operator at [facility] [id number] 17:32:00* Test Item Value Reference Range Comments GLUBED (test code=GLUBED) 80 mg/dL 74-106 Performed by certified power barker operator at [facility] [id number] 16:38:00* Test Item Value Reference Range Comments GLUBED (test code=GLUBED) 78 mg/dL 74-106 Performed by certified power barker operator at [facility] [id number] 13:12:00* Test Item Value Reference Range Comments GLUBED (test code=GLUBED) 192 mg/dL 74-106 Performed by certified power barker operator at [facility] [id number] 08:59:00* Test Item Value Reference Range Comments GLUBED (test code=GLUBED) 140 mg/dL 74-106 Performed by certified power barker operator at [facility] [id number] 07:53:00* Test Item Value Reference Range Comments GLUBED (test code=GLUBED) 209 mg/dL 74-106 Performed by certified power barker operator at [facility] [id number] 07:53:00* Test Item Value Reference Range Comments GLUBED (test code=GLUBED) 59 mg/dL 74-106 Performed by certified power barker operator at [facility] [id number] 07:53:00* Test Item Value Reference Range Comments GLUBED (test code=GLUBED) 57 mg/dL 74-106 Performed by certified power barker operator at [facility] [id number] 07:53:00* Test Item Value Reference Range Comments GLUBED (test code=GLUBED) 53 mg/dL 74-106 Performed by certified power barker operator at [facility] [id number] 21:29:00* Test Item Value Reference Range Comments GLUBED (test code=GLUBED) 152 mg/dL 74-106 Performed by certified power barker operator at [facility] [id number] 12:08:00* Test Item Value Reference Range Comments GLUBED (test code=GLUBED) 107 mg/dL 74-106 Performed by certified power barker operator at [facility] [id number] 09:19:00* Test Item Value Reference Range Comments GLUBED (test code=GLUBED) 83 mg/dL 74-106 Performed by certified power barker operator at [facility] BASIC METABOLIC [id number] 07:30:00* Test Item Value Reference Range Comments SODIUM (test code=NA) 143 mmol/L 136-145 POTASSIUM (test code=K) 4.0 mmol/L 3.5-5.1 CHLORIDE (test code=CL) 114.0 mmol/L 98-107 CARBON DIOXIDE (test code=CO2) 24.0 mmol/L 21-32 ANION GAP (test code=GAP) 9.0 10-20 GLUCOSE (test code=GLU) 108 mg/dL 74-106 BLOOD UREA NITROGEN (test code=BUN) 17 mg/dL 7-18 GLOMERULAR FILTRATION RATE (test code=GFR) > 60 mL/min >=60 Estimated GFR by using Modified MDRD formula.Chronic kidney disease is defined as either kidney damageor GFR <60 mL/min/1.73 m2 for >3 months. CREATININE (test code=CREAT) 1.10 mg/dL 0.7-1.3 BUN/CREATININE RATIO (test code=BUN/CREA) 15.5 10-20 CALCIUM (test code=CA) 8.0 mg/dL 8.5-10.1 CBC W/AUTO [id number] 07:22:00* Test Item Value Reference Range Comments WHITE BLOOD CELL (test code=WBC) 6.8 K/mm3 4.5-12.5 RED BLOOD CELL (test code=RBC) 3.39 mill/mm3 4.0-5.8 HEMOGLOBIN (test code=HGB) 9.8 gram/dL 13.0-17.5 HEMATOCRIT (test code=HCT) 29.9 % 42.0-52.0 MEAN CELL VOLUME (test code=MCV) 88.2 fL 80-98 MEAN CELL HGB (test code=MCH) 28.9 picogram 27.0-33.0 MEAN CELL HGB CONCETRATION (test code=MCHC) 32.8 gram/dL 33.0-36.0 RED CELL DISTRIBUTION WIDTH (test code=RDW) 13.7 % 11.6-16.2 RED CELL DISTRIBUTION WIDTH SD (test code=RDW-SD) 44.3 fL 37.0-51.0 PLATELET COUNT (test code=PLT) 119 K/mm3 150-450 MEAN PLATELET VOLUME (test code=MPV) 10.2 fL 6.7-11.0 NEUTROPHIL % (test code=NT%) 67.2 % 39.0-69.0 IMMATURE GRANULOCYTE % (test code=IG%) 0.4 % 0.0-5.0 LYMPHOCYTE % (test code=LY%) 20.8 % 25.0-55.0 MONOCYTE % (test code=MO%) 9.3 % 0.0-10.0 EOSINOPHIL % (test code=EO%) 1.9 % 0.0-5.0 BASOPHIL % (test code=BA%) 0.4 % 0.0-1.0 NUCLEATED RBC % (test code=NRBC%) 0.0 % 0-0 NEUTROPHIL # (test code=NT#) 4.55 K/mm3 1.8-7.7 IMMATURE GRANULOCYTE # (test code=IG#) 0.03 x10 3/uL 0-0.03 LYMPHOCYTE # (test code=LY#) 1.41 K/mm3 1.0-5.0 MONOCYTE # (test code=MO#) 0.63 K/mm3 0-0.8 EOSINOPHIL # (test code=EO#) 0.13 K/mm3 0.0-0.5 BASOPHIL # (test code=BA#) 0.03 K/mm3 0.0-0.2 NUCLEATED RBC # (test code=NRBC#) 0.00 K/mm3 0.0-0.1 MANUAL DIFF REQUIRED (test code=MDIFF) NO [id number] 21:07:00* Test Item Value Reference Range Comments GLUBED (test code=GLUBED) 123 mg/dL 74-106 Performed by certified power barker operator at [facility] [id number] 17:47:00* Test Item Value Reference Range Comments GLUBED (test code=GLUBED) 74 mg/dL 74-106 Performed by certified power barker operator at [facility] [id number] 12:03:00* Test Item Value Reference Range Comments GLUBED (test code=GLUBED) 173 mg/dL 74-106 Performed by certified power barker operator at [facility] [id number] 09:09:00* Test Item Value Reference Range Comments GLUBED (test code=GLUBED) 242 mg/dL 74-106 Performed by certified power barker operator at [facility] - CT HEAD/BRAIN W/O [id number] 04:25:00 Name: ISAIAS RAMOS JR [facility] : 1960 Age/S: 57 / M Gabe Simon Unit #: [id number] Loc: [place] [address] Phys: Jan Corado MD Acct: [id number] Dis Date: Status: ADM IN PHONE #: [phone] Exam Date: 06/05/2018422 FAX #: [phone] Reason: C/O FALL EXAMS: CPT CODE: [id number] CT HEAD/BRAIN W/O CONT 39800 Exam: CT head without contrast. Location: F6 History: C/O FALL Technique: Unenhanced spiral slices were taken from the base of the skull, through the vertex. One or more of the following dose reduction techniques were used: Automated exposure control, adjustment of the mA and/or kV according to patient size, and/or utilization of iterative reconstruction technique. Findings: No acute intracranial abnormality is identified. The brain parenchyma and the CSF spaces are unremarkable. No mass, midline shift, hemorrhage, hydrocephalus or edema is seen. The visualized paranasal sinuses are clear. The mastoid air cells are well pneumatized. The bony calvarium is intact. Impression: No acute intracranial abnormality. at 0425 Reported and signed by: Manjit Hull M.D. CC: Jan Corado Technologist:Trevor Preston RT(R)(CT) CTDI: DLP: Trnscb Date/Time: 06/05/2018 (424) Javed Orig Print D/T: S: 06/05/2018 (042) CTDI: DLP: PAGE 1 Signed Report T4 [id number] 18:40:00* Test Item Value Reference Range Comments T4 FREE (test code=T4F) 1.27 ng/dL 0.76-1.46 THYROID STIMULATING [id number] 18:40:00* Test Item Value Reference Range Comments THYROID STIMULATING HORMONE (test code=TSH) 0.233 uIU/mL 0.36-3.74 TSH REFERENCE RANGES: EUTHYROID: 0.35 - 4.3 mIU/mL HYPO : > 5.5 mIU/mL HYPER : < 0.35 mIU/mL [id number] 15:23:00* Test Item Value Reference Range Comments GLUBED (test code=GLUBED) 117 mg/dL 74-106 Performed by certified power barker operator at [facility] [id number] 15:05:00* Test Item Value Reference Range Comments GLUBED (test code=GLUBED) 86 mg/dL 74-106 Performed by certified power barker operator at [facility] [id number] 09:01:00* Test Item Value Reference Range Comments GLUBED (test code=GLUBED) 170 mg/dL 74-106 Performed by certified power barker operator at [facility] [id number] 19:49:00* Test Item Value Reference Range Comments GLUBED (test code=GLUBED) 196 mg/dL 74-106 Performed by certified power barker operator at [facility] [id number] 17:01:00* Test Item Value Reference Range Comments GLUBED (test code=GLUBED) 153 mg/dL 74-106 Performed by certified power barker operator at [facility] [id number] 11:59:00* Test Item Value Reference Range Comments GLUBED (test code=GLUBED) 123 mg/dL 74-106 Performed by certified power barker operator at [facility] [id number] 08:30:00* Test Item Value Reference Range Comments GLUBED (test code=GLUBED) 141 mg/dL 74-106 Performed by certified power barker operator at [facility] [id number] 07:08:00* Test Item Value Reference Range Comments GLUBED (test code=GLUBED) 157 mg/dL 74-106 Performed by certified power barker operator at [facility] CBC W/MANUAL [id number] 06:36:00* Test Item Value Reference Range Comments WHITE BLOOD CELL (test code=WBC) 9.3 K/mm3 4.5-12.5 RED BLOOD CELL (test code=RBC) 4.12 mill/mm3 4.0-5.8 HEMOGLOBIN (test code=HGB) 11.8 gram/dL 13.0-17.5 HEMATOCRIT (test code=HCT) 35.8 % 42.0-52.0 MEAN CELL VOLUME (test code=MCV) 86.9 fL 80-98 MEAN CELL HGB (test code=MCH) 28.6 picogram 27.0-33.0 MEAN CELL HGB CONCETRATION (test code=MCHC) 33.0 gram/dL 33.0-36.0 RED CELL DISTRIBUTION WIDTH (test code=RDW) 13.9 % 11.6-16.2 RED CELL DISTRIBUTION WIDTH SD (test code=RDW-SD) 43.7 fL 37.0-51.0 PLATELET COUNT (test code=PLT) 171 K/mm3 150-450 MEAN PLATELET VOLUME (test code=MPV) 10.2 fL 6.7-11.0 IMMATURE GRANULOCYTE % (test code=IG%) 0.5 % 0.0-5.0 NUCLEATED RBC % (test code=NRBC%) 0.0 % 0-0 NEUTROPHIL # (test code=NT#) 5.89 K/mm3 1.8-7.7 IMMATURE GRANULOCYTE # (test code=IG#) 0.05 x10 3/uL 0-0.03 LYMPHOCYTE # (test code=LY#) 2.19 K/mm3 1.0-5.0 MONOCYTE # (test code=MO#) 0.95 K/mm3 0-0.8 EOSINOPHIL # (test code=EO#) 0.17 K/mm3 0.0-0.5 BASOPHIL # (test code=BA#) 0.05 K/mm3 0.0-0.2 NUCLEATED RBC # (test code=NRBC#) 0.00 K/mm3 0.0-0.1 MANUAL DIFF REQUIRED (test code=MDIFF) YES STAIN ACCEPTABILITY (test code=STN ACCEPTABLE) STAIN ACCEPTABLE TOTAL CELLS COUNTED (test code=TCC) 115 #CELLS SEGMENTED NEUTROPHILS (test code=SEG) 61.7 % 39-69 BAND NEUTROPHIL (test code=BAND) 6.1 % 0-10 LYMPHOCYTE (test code=LYMPH) 25.2 % 25-55 REACTIVE LYMPH (test code=RELYMPH) 0 % MONOCYTE (test code=MON) 6.1 % 0-10 EOSINOPHIL (test code=EOS) 0 % 0.0-5.0 BASOPHIL (test code=BASO) 0.9 % 0-1.0 METAMYELOCYTE (test code=META) 0 % 0-0 MYELOCYTE (test code=MYELO) 0 % 0.0-0.0 PROMYELOCYTE (test code=PROM) 0 % 0-0 MORPHOLOGY COMMENT (test code=MOC) NORMAL PLATELET ESTIMATE (test code=PLTEST) ADEQUATE PLATELET MORPHOLOGY (test code=PLTMORPH) NORMAL IMMATURE FORMS (test code=IMMAT) 0 % BASIC METABOLIC [id number] 06:35:00* Test Item Value Reference Range Comments SODIUM (test code=NA) 141 mmol/L 136-145 POTASSIUM (test code=K) 4.7 mmol/L 3.5-5.1 CHLORIDE (test code=CL) 106.0 mmol/L 98-107 CARBON DIOXIDE (test code=CO2) 28.0 mmol/L 21-32 ANION GAP (test code=GAP) 11.7 10-20 GLUCOSE (test code=GLU) 163 mg/dL 74-106 BLOOD UREA NITROGEN (test code=BUN) 25 mg/dL 7-18 GLOMERULAR FILTRATION RATE (test code=GFR) > 60 mL/min >=60 Estimated GFR by using Modified MDRD formula.Chronic kidney disease is defined as either kidney damageor GFR <60 mL/min/1.73 m2 for >3 months. CREATININE (test code=CREAT) 1.20 mg/dL 0.7-1.3 BUN/CREATININE RATIO (test code=BUN/CREA) 20.8 10-20 CALCIUM (test code=CA) 9.0 mg/dL 8.5-10.1 [id number] 06:35:00* Test Item Value Reference Range Comments PHOSPHORUS (test code=PHOS) 4.2 mg/dL 2.5-4.9 [id number] 06:35:00* Test Item Value Reference Range Comments MAGNESIUM (test code=MAG) 2.2 mg/dL 1.8-2.4 VITAMIN [id number] 06:35:00* Test Item Value Reference Range Comments VITAMIN B12 (test code=VITB12) 995 pg/mL 193-986 FOLIC [id number] 06:35:00* Test Item Value Reference Range Comments FOLIC ACID (test code=FOL) 35.1 ng/mL 3.10-17.50 THYROID PROFILE [id number] 06:35:00* Test Item Value Reference Range Comments T3 UPTAKE (test code=T3UP) 34.0 % 30.0-40.0 T4 (THYROXINE) (test code=T4) 11.1 ug/dL 4.5-13.9 T7 (FREE THYROXINE INDEX) (test code=T7) 3.77 FTI 1.3-5.1 THYROID STIMULATING HORMONE (test code=TSH) 0.745 uIU/mL 0.36-3.74 TSH REFERENCE RANGES: EUTHYROID: 0.35 - 4.3 mIU/mL HYPO : > 5.5 mIU/mL HYPER : < 0.35 mIU/mL [id number] 05:50:00* Test Item Value Reference Range Comments GLYCOSYLATED HEMOGLOBIN (HA1C) (test code=GLYHGB) 14.1 % HbA1 4.8-6.0 ESTIMATED AVERAGE GLUCOSE (test code=EAG) 358 MG/DL BASIC METABOLIC [id number] 05:44:00* Test Item Value Reference Range Comments SODIUM (test code=NA) 141 mmol/L 136-145 POTASSIUM (test code=K) 4.7 mmol/L 3.5-5.1 CHLORIDE (test code=CL) 106.0 mmol/L 98-107 CARBON DIOXIDE (test code=CO2) mmol/L 21-32 ANION GAP (test code=GAP) 10-20 GLUCOSE (test code=GLU) mg/dL 74-106 BLOOD UREA NITROGEN (test code=BUN) mg/dL 7-18 GLOMERULAR FILTRATION RATE (test code=GFR) mL/min >=60 CREATININE (test code=CREAT) mg/dL 0.7-1.3 BUN/CREATININE RATIO (test code=BUN/CREA) 10-20 CALCIUM (test code=CA) mg/dL 8.5-10.1 [id number] 05:44:00* Test Item Value Reference Range Comments PHOSPHORUS (test code=PHOS) mg/dL 2.5-4.9 [id number] 05:44:00* Test Item Value Reference Range Comments MAGNESIUM (test code=MAG) mg/dL 1.8-2.4 VITAMIN [id number] 05:44:00* Test Item Value Reference Range Comments VITAMIN B12 (test code=VITB12) pg/mL 193-986 FOLIC [id number] 05:44:00* Test Item Value Reference Range Comments FOLIC ACID (test code=FOL) ng/mL 3.10-17.50 THYROID PROFILE [id number] 05:44:00* Test Item Value Reference Range Comments T3 UPTAKE (test code=T3UP) % 30.0-40.0 T4 (THYROXINE) (test code=T4) ug/dL 4.5-13.9 T7 (FREE THYROXINE INDEX) (test code=T7) FTI 1.3-5.1 THYROID STIMULATING HORMONE (test code=TSH) uIU/mL 0.36-3.74 CBC W/MANUAL [id number] 05:38:00* Test Item Value Reference Range Comments WHITE BLOOD CELL (test code=WBC) 9.3 K/mm3 4.5-12.5 RED BLOOD CELL (test code=RBC) 4.12 mill/mm3 4.0-5.8 HEMOGLOBIN (test code=HGB) 11.8 gram/dL 13.0-17.5 HEMATOCRIT (test code=HCT) 35.8 % 42.0-52.0 MEAN CELL VOLUME (test code=MCV) 86.9 fL 80-98 MEAN CELL HGB (test code=MCH) 28.6 picogram 27.0-33.0 MEAN CELL HGB CONCETRATION (test code=MCHC) 33.0 gram/dL 33.0-36.0 RED CELL DISTRIBUTION WIDTH (test code=RDW) 13.9 % 11.6-16.2 RED CELL DISTRIBUTION WIDTH SD (test code=RDW-SD) 43.7 fL 37.0-51.0 PLATELET COUNT (test code=PLT) 171 K/mm3 150-450 MEAN PLATELET VOLUME (test code=MPV) 10.2 fL 6.7-11.0 IMMATURE GRANULOCYTE % (test code=IG%) 0.5 % 0.0-5.0 NUCLEATED RBC % (test code=NRBC%) 0.0 % 0-0 NEUTROPHIL # (test code=NT#) 5.89 K/mm3 1.8-7.7 IMMATURE GRANULOCYTE # (test code=IG#) 0.05 x10 3/uL 0-0.03 LYMPHOCYTE # (test code=LY#) 2.19 K/mm3 1.0-5.0 MONOCYTE # (test code=MO#) 0.95 K/mm3 0-0.8 EOSINOPHIL # (test code=EO#) 0.17 K/mm3 0.0-0.5 BASOPHIL # (test code=BA#) 0.05 K/mm3 0.0-0.2 NUCLEATED RBC # (test code=NRBC#) 0.00 K/mm3 0.0-0.1 MANUAL DIFF REQUIRED (test code=MDIFF) YES STAIN ACCEPTABILITY (test code=STN ACCEPTABLE) TOTAL CELLS COUNTED (test code=TCC) #CELLS SEGMENTED NEUTROPHILS (test code=SEG) % 39-69 LYMPHOCYTE (test code=LYMPH) % 25-55 MONOCYTE (test code=MON) % 0-10 EOSINOPHIL (test code=EOS) % 0.0-5.0 CABOT RINGS (test code=CAB) MORPHOLOGY COMMENT (test code=MOC) PLATELET ESTIMATE (test code=PLTEST) PLATELET MORPHOLOGY (test code=PLTMORPH) CBC W/MANUAL [id number] 05:38:00* Test Item Value Reference Range Comments WHITE BLOOD CELL (test code=WBC) 9.3 K/mm3 4.5-12.5 RED BLOOD CELL (test code=RBC) 4.12 mill/mm3 4.0-5.8 HEMOGLOBIN (test code=HGB) 11.8 gram/dL 13.0-17.5 HEMATOCRIT (test code=HCT) 35.8 % 42.0-52.0 MEAN CELL VOLUME (test code=MCV) 86.9 fL 80-98 MEAN CELL HGB (test code=MCH) 28.6 picogram 27.0-33.0 MEAN CELL HGB CONCETRATION (test code=MCHC) 33.0 gram/dL 33.0-36.0 RED CELL DISTRIBUTION WIDTH (test code=RDW) 13.9 % 11.6-16.2 RED CELL DISTRIBUTION WIDTH SD (test code=RDW-SD) 43.7 fL 37.0-51.0 PLATELET COUNT (test code=PLT) 171 K/mm3 150-450 MEAN PLATELET VOLUME (test code=MPV) 10.2 fL 6.7-11.0 IMMATURE GRANULOCYTE % (test code=IG%) 0.5 % 0.0-5.0 NUCLEATED RBC % (test code=NRBC%) 0.0 % 0-0 NEUTROPHIL # (test code=NT#) 5.89 K/mm3 1.8-7.7 IMMATURE GRANULOCYTE # (test code=IG#) 0.05 x10 3/uL 0-0.03 LYMPHOCYTE # (test code=LY#) 2.19 K/mm3 1.0-5.0 MONOCYTE # (test code=MO#) 0.95 K/mm3 0-0.8 EOSINOPHIL # (test code=EO#) 0.17 K/mm3 0.0-0.5 BASOPHIL # (test code=BA#) 0.05 K/mm3 0.0-0.2 NUCLEATED RBC # (test code=NRBC#) 0.00 K/mm3 0.0-0.1 MANUAL DIFF REQUIRED (test code=MDIFF) YES STAIN ACCEPTABILITY (test code=STN ACCEPTABLE) TOTAL CELLS COUNTED (test code=TCC) #CELLS SEGMENTED NEUTROPHILS (test code=SEG) % 39-69 LYMPHOCYTE (test code=LYMPH) % 25-55 MONOCYTE (test code=MON) % 0-10 EOSINOPHIL (test code=EOS) % 0.0-5.0 CABOT RINGS (test code=CAB) MORPHOLOGY COMMENT (test code=MOC) PLATELET ESTIMATE (test code=PLTEST) PLATELET MORPHOLOGY (test code=PLTMORPH) CBC W/MANUAL [id number] 05:38:00* Test Item Value Reference Range Comments WHITE BLOOD CELL (test code=WBC) 9.3 K/mm3 4.5-12.5 RED BLOOD CELL (test code=RBC) 4.12 mill/mm3 4.0-5.8 HEMOGLOBIN (test code=HGB) 11.8 gram/dL 13.0-17.5 HEMATOCRIT (test code=HCT) 35.8 % 42.0-52.0 MEAN CELL VOLUME (test code=MCV) 86.9 fL 80-98 MEAN CELL HGB (test code=MCH) 28.6 picogram 27.0-33.0 MEAN CELL HGB CONCETRATION (test code=MCHC) 33.0 gram/dL 33.0-36.0 RED CELL DISTRIBUTION WIDTH (test code=RDW) 13.9 % 11.6-16.2 RED CELL DISTRIBUTION WIDTH SD (test code=RDW-SD) 43.7 fL 37.0-51.0 PLATELET COUNT (test code=PLT) 171 K/mm3 150-450 MEAN PLATELET VOLUME (test code=MPV) 10.2 fL 6.7-11.0 IMMATURE GRANULOCYTE % (test code=IG%) 0.5 % 0.0-5.0 NUCLEATED RBC % (test code=NRBC%) 0.0 % 0-0 NEUTROPHIL # (test code=NT#) 5.89 K/mm3 1.8-7.7 IMMATURE GRANULOCYTE # (test code=IG#) 0.05 x10 3/uL 0-0.03 LYMPHOCYTE # (test code=LY#) 2.19 K/mm3 1.0-5.0 MONOCYTE # (test code=MO#) 0.95 K/mm3 0-0.8 EOSINOPHIL # (test code=EO#) 0.17 K/mm3 0.0-0.5 BASOPHIL # (test code=BA#) 0.05 K/mm3 0.0-0.2 NUCLEATED RBC # (test code=NRBC#) 0.00 K/mm3 0.0-0.1 MANUAL DIFF REQUIRED (test code=MDIFF) YES STAIN ACCEPTABILITY (test code=STN ACCEPTABLE) TOTAL CELLS COUNTED (test code=TCC) #CELLS SEGMENTED NEUTROPHILS (test code=SEG) % 39-69 LYMPHOCYTE (test code=LYMPH) % 25-55 MONOCYTE (test code=MON) % 0-10 EOSINOPHIL (test code=EOS) % 0.0-5.0 MORPHOLOGY COMMENT (test code=MOC) PLATELET ESTIMATE (test code=PLTEST) PLATELET MORPHOLOGY (test code=PLTMORPH) CBC W/MANUAL [id number] 05:38:00* Test Item Value Reference Range Comments WHITE BLOOD CELL (test code=WBC) 9.3 K/mm3 4.5-12.5 RED BLOOD CELL (test code=RBC) 4.12 mill/mm3 4.0-5.8 HEMOGLOBIN (test code=HGB) 11.8 gram/dL 13.0-17.5 HEMATOCRIT (test code=HCT) 35.8 % 42.0-52.0 MEAN CELL VOLUME (test code=MCV) 86.9 fL 80-98 MEAN CELL HGB (test code=MCH) 28.6 picogram 27.0-33.0 MEAN CELL HGB CONCETRATION (test code=MCHC) 33.0 gram/dL 33.0-36.0 RED CELL DISTRIBUTION WIDTH (test code=RDW) 13.9 % 11.6-16.2 RED CELL DISTRIBUTION WIDTH SD (test code=RDW-SD) 43.7 fL 37.0-51.0 PLATELET COUNT (test code=PLT) 171 K/mm3 150-450 MEAN PLATELET VOLUME (test code=MPV) 10.2 fL 6.7-11.0 IMMATURE GRANULOCYTE % (test code=IG%) 0.5 % 0.0-5.0 NUCLEATED RBC % (test code=NRBC%) 0.0 % 0-0 NEUTROPHIL # (test code=NT#) 5.89 K/mm3 1.8-7.7 IMMATURE GRANULOCYTE # (test code=IG#) 0.05 x10 3/uL 0-0.03 LYMPHOCYTE # (test code=LY#) 2.19 K/mm3 1.0-5.0 MONOCYTE # (test code=MO#) 0.95 K/mm3 0-0.8 EOSINOPHIL # (test code=EO#) 0.17 K/mm3 0.0-0.5 BASOPHIL # (test code=BA#) 0.05 K/mm3 0.0-0.2 NUCLEATED RBC # (test code=NRBC#) 0.00 K/mm3 0.0-0.1 MANUAL DIFF REQUIRED (test code=MDIFF) YES STAIN ACCEPTABILITY (test code=STN ACCEPTABLE) TOTAL CELLS COUNTED (test code=TCC) #CELLS SEGMENTED NEUTROPHILS (test code=SEG) % 39-69 LYMPHOCYTE (test code=LYMPH) % 25-55 MONOCYTE (test code=MON) % 0-10 MORPHOLOGY COMMENT (test code=MOC) PLATELET ESTIMATE (test code=PLTEST) PLATELET MORPHOLOGY (test code=PLTMORPH) CBC W/MANUAL [id number] 05:38:00* Test Item Value Reference Range Comments WHITE BLOOD CELL (test code=WBC) 9.3 K/mm3 4.5-12.5 RED BLOOD CELL (test code=RBC) 4.12 mill/mm3 4.0-5.8 HEMOGLOBIN (test code=HGB) 11.8 gram/dL 13.0-17.5 HEMATOCRIT (test code=HCT) 35.8 % 42.0-52.0 MEAN CELL VOLUME (test code=MCV) 86.9 fL 80-98 MEAN CELL HGB (test code=MCH) 28.6 picogram 27.0-33.0 MEAN CELL HGB CONCETRATION (test code=MCHC) 33.0 gram/dL 33.0-36.0 RED CELL DISTRIBUTION WIDTH (test code=RDW) 13.9 % 11.6-16.2 RED CELL DISTRIBUTION WIDTH SD (test code=RDW-SD) 43.7 fL 37.0-51.0 PLATELET COUNT (test code=PLT) 171 K/mm3 150-450 MEAN PLATELET VOLUME (test code=MPV) 10.2 fL 6.7-11.0 IMMATURE GRANULOCYTE % (test code=IG%) 0.5 % 0.0-5.0 NUCLEATED RBC % (test code=NRBC%) 0.0 % 0-0 NEUTROPHIL # (test code=NT#) 5.89 K/mm3 1.8-7.7 IMMATURE GRANULOCYTE # (test code=IG#) 0.05 x10 3/uL 0-0.03 LYMPHOCYTE # (test code=LY#) 2.19 K/mm3 1.0-5.0 MONOCYTE # (test code=MO#) 0.95 K/mm3 0-0.8 EOSINOPHIL # (test code=EO#) 0.17 K/mm3 0.0-0.5 BASOPHIL # (test code=BA#) 0.05 K/mm3 0.0-0.2 NUCLEATED RBC # (test code=NRBC#) 0.00 K/mm3 0.0-0.1 MANUAL DIFF REQUIRED (test code=MDIFF) YES STAIN ACCEPTABILITY (test code=STN ACCEPTABLE) TOTAL CELLS COUNTED (test code=TCC) #CELLS SEGMENTED NEUTROPHILS (test code=SEG) % 39-69 LYMPHOCYTE (test code=LYMPH) % 25-55 MONOCYTE (test code=MON) % 0-10 EOSINOPHIL (test code=EOS) % 0.0-5.0 CABOT RINGS (test code=CAB) MORPHOLOGY COMMENT (test code=MOC) PLATELET ESTIMATE (test code=PLTEST) PLATELET MORPHOLOGY (test code=PLTMORPH) [id number] 21:09:00* Test Item Value Reference Range Comments GLUBED (test code=GLUBED) 202 mg/dL 74-106 Performed by certified power barker operator at [facility] [id number] 19:05:00* Test Item Value Reference Range Comments GLUBED (test code=GLUBED) 145 mg/dL 74-106 Performed by certified power barker operator at [facility] - CT ABD PELVIS W/O [id number] 18:03:00 Name: ISAIAS RAMOS JR [facility] : 1960 Age/S: 57 / M [address] Unit #: [id number] Loc: [place] [address] Phys: Jan Corado MD Acct: [id number] Dis Date: Status: ADM IN PHONE #: [phone] Exam Date: 06/02/2018 1748 FAX #: [phone] Reason: CP/HEMATURIA EXAMS: CPT CODE: [id number] CT ABD PELVIS W/O CONT [id number] REASON FOR EXAM: CP/HEMATURIA EXAM ORDER DATE: 06/02/2018 5:24 PM Ordering M.Lawanda: Jan Boggs MD PROCEDURE: - CT ABD PELVIS W/O CONT COMPARISON: FINDINGS: CT images of the abdomen and pelvis were obtained without IV and without oral contrast at 5mm. Dose modulation, iterative reconstruction, and/or weight based adjustment of the MA/KV was utilized to reduce the radiation dose to as low as reasonably achievable. The pancreas is grossly within normal limits. The gall bladder is unremarkable by CT. Subcentimeter bilateral renal cysts The colon, small bowel, and stomach are within normal limits without evidence of obstruction. The appendix is unremarkable No evidence of free air or free fluid. IMPRESSION: 1. Nodular contour liver suggestive of early cirrhosis with minimal splenomegaly (13-14 cm) 2. Diffuse mild thickening of the wall of the urinary bladder suggestive of possible cystitis Elec tronically Signed by Amrit Patino on 06/02/2018 at 1803 Reported and signed by: José Luis Patino M.D. CC: Jan Corado Technologist:Facundo Friedman RT(R)(CT); . CTDI: DLP: Trnscb Date/Time: 06/02/2018 (1802) Jc Orig Print D/T: S: 06/02/2018 (1805) CTDI: DLP: PAGE 1 Signed Report - CT CHEST W/O [id number] 18:01:00 Name: ISAIAS RAMOS JR [facility] : 1960 Age/S: 57 / M [address] Unit #: [id number] Loc: [place] [address] Phys: Jan Corado MD Acct: [id number] Dis Date: Status: ADM IN PHONE #: [phone] Exam Date: 06/02/2018 1748 FAX #: [phone] Reason: CP EXAMS: CPT CODE: [id number] CT CHEST W/O CONTRAST [id number] REASON FOR EXAM: CP EXAM ORDER DATE: 06/02/2018 5:24 PM Ordering Amrit: Jan Boggs MD PROCEDURE: - CT CHEST W/O CONTRAST FINDINGS: CT images of the chest were obtained without IV contrast. Reconstructed sagittal and coronal images of the chest were provided for interpretation. Dose modulation, iterative reconstruction, and/or weight based adjustment of the MA/KV was utilized to reduce the radiation dose to as low as reasonably achievable. The heart size is within normal limits. The thoracic aorta is aorta is unremarkable.. No evidence of mediastinal or hilar adenopathy. The lungs are clear. No evidence of pleural effusion. IMPRESSION: Trace of pericardial effusion. No other significant findings at 1801 Reported and signed by: José Luis Patino M.D. CC: Jan Corado Technologist:Facundo LUDWIG(R)(CT); . CTDI: DLP: Trnscb Vern e/Time: 06/02/2018 (180) tASHLEYL Orig Print D/T: S: (180) CTDI: DLP: PAGE 1 Signed Report [id number] 12:35:00* Test Item Value Reference Range Comments GLUBED (test code=GLUBED) 251 mg/dL 74-106 Performed by certified power barker operator at [facility] [id number] 11:02:00* Test Item Value Reference Range Comments GLUBED (test code=GLUBED) 228 mg/dL 74-106 Performed by certified power barker operator at [facility] [id number] 04:32:00* Test Item Value Reference Range Comments GLUBED (test code=GLUBED) > 500 mg/dL 74-106 [facility] Not[facility]~ URINALYSIS [id number] 02:50:00* Test Item Value Reference Range Comments UA COLOR (test code=COLU) YELLOW YELLOW UA APPEARANCE (test code=APPU) TURBID CLEAR UA GLUCOSE DIPSTICK (test code=DGLUU) >1000 (4+) mg/dL NEGATIVE UA BILIRUBIN DIPSTICK (test code=BILU) NEGATIVE mg/dL NEGATIVE UA KETONE DIPSTICK (test code=KETU) NEGATIVE mg/dL NEGATIVE UA SPECIFIC GRAVITY (test code=SGU) 1.024 1.001-1.035 UA BLOOD DIPSTICK (test code=ZOILA) 1.0 mg/dL (3+) mg/dL NEGATIVE UA PH DIPSTICK (test code=ALEXY) 5.5 5.0-8.0 UA PROTEIN DIPSTICK (test code=PROU) 50 (1+) mg/dL NEGATIVE UA UROBILINIOGEN DIPSTICK (test code=URO) Normal mg/dL NEGATIVE UA NITRITE DIPSTICK (test code=CHATO) NEGATIVE NEGATIVE UA LEUKOCYTE ESTERASE W REFLEX (test code=LEUUR) 500 Vitaly/uL (2+) Vitaly/uL NEGATIVE UA WBC (test code=WBCU) >200 per HPF 0-5 UA RBC (test code=RBCU) 101-150 #/HPF 0-5 UA WBC CLUMPS (test code=WBCUCL) >10 /HPF NONE UA EPITHELIAL CELLS (test code=EPIU) FEW per HPF FEW UA BACTERIA (test code=BACU) FEW #/HPF NONE Urine Source? Clean CatchDRUGS OF ABUSE SCREEN [id number] 02:50:00* Test Item Value Reference Range Comments URN COCAINE (test code=COCAURN) NEGATIVE <300 ng/mL URN CANNABINOIDS (test code=CANNABURN) POSITIVE <50 ng/mL This test provides only a preliminary test result. A morespecific alternate chemical method must be used in order toobtain a confirmed analytical result. Gas chromatography/mass spectrometry (GC/MS) is thepreferred confirmatory method. Other chemical confirmationmethods are available. Clinical consideration and professional judgment should be applied to any drug of abusetest result, particularly when preliminary positive resultsare used.Unconfirmed screening results must not be used fornon-medical purposes (e.g., employment testing, legaltesting). URN AMPHETAMINE (test code=AMPHETURN) NEGATIVE <1000 ng/mL URN BARBITURATE (test code=BARBITURN) NEGATIVE <200 ng/mL URN BENZODIAZEPINE (test code=BENZOURN) NEGATIVE <200 ng/mL URN OPIATES (test code=OPIATURN) NEGATIVE <300 ng/mL URN PHENCYCLIDINE (PCP) (test code=PHENCURN) NEGATIVE <25 ng/mL URN METHADONE (test code=METHAURN) NEGATIVE <300 ng/mL Urine Source? Clean [id number] 02:48:00* Test Item Value Reference Range Comments GLYCOSYLATED HEMOGLOBIN (HA1C) (test code=GLYHGB) 13.8 % HbA1 4.8-6.0 ESTIMATED AVERAGE GLUCOSE (test code=EAG) 349 MG/DL URINALYSIS [id number] 02:40:00* Test Item Value Reference Range Comments UA COLOR (test code=COLU) YELLOW YELLOW UA APPEARANCE (test code=APPU) TURBID CLEAR UA GLUCOSE DIPSTICK (test code=DGLUU) >1000 (4+) mg/dL NEGATIVE UA BILIRUBIN DIPSTICK (test code=BILU) NEGATIVE mg/dL NEGATIVE UA KETONE DIPSTICK (test code=KETU) NEGATIVE mg/dL NEGATIVE UA SPECIFIC GRAVITY (test code=SGU) 1.024 1.001-1.035 UA BLOOD DIPSTICK (test code=ZOILA) 1.0 mg/dL (3+) mg/dL NEGATIVE UA PH DIPSTICK (test code=ALEXY) 5.5 5.0-8.0 UA PROTEIN DIPSTICK (test code=PROU) 50 (1+) mg/dL NEGATIVE UA UROBILINIOGEN DIPSTICK (test code=URO) Normal mg/dL NEGATIVE UA NITRITE DIPSTICK (test code=CHATO) NEGATIVE NEGATIVE UA LEUKOCYTE ESTERASE W REFLEX (test code=LEUUR) 500 Vitaly/uL (2+) Vitaly/uL NEGATIVE UA WBC (test code=WBCU) >200 per HPF 0-5 UA RBC (test code=RBCU) 101-150 #/HPF 0-5 UA WBC CLUMPS (test code=WBCUCL) >10 /HPF NONE UA EPITHELIAL CELLS (test code=EPIU) FEW per HPF FEW UA BACTERIA (test code=BACU) FEW #/HPF NONE Urine Source? Clean CatchDRUGS OF ABUSE SCREEN [id number] 02:40:00* Test Item Value Reference Range Comments URN COCAINE (test code=COCAURN) <300 ng/mL URN CANNABINOIDS (test code=CANNABURN) <50 ng/mL URN AMPHETAMINE (test code=AMPHETURN) <1000 ng/mL URN BARBITURATE (test code=BARBITURN) <200 ng/mL URN BENZODIAZEPINE (test code=BENZOURN) <200 ng/mL URN OPIATES (test code=OPIATURN) <300 ng/mL URN PHENCYCLIDINE (PCP) (test code=PHENCURN) <25 ng/mL URN METHADONE (test code=METHAURN) <300 ng/mL Urine Source? Clean CatchCBC W/O [id number] 02:11:00* Test Item Value Reference Range Comments WHITE BLOOD CELL (test code=WBC) 8.4 K/mm3 4.5-12.5 RED BLOOD CELL (test code=RBC) 4.55 mill/mm3 4.0-5.8 HEMOGLOBIN (test code=HGB) 12.6 gram/dL 13.0-17.5 HEMATOCRIT (test code=HCT) 40.7 % 42.0-52.0 MEAN CELL VOLUME (test code=MCV) 89.5 fL 80-98 MEAN CELL HGB (test code=MCH) 27.7 picogram 27.0-33.0 MEAN CELL HGB CONCETRATION (test code=MCHC) 31.0 gram/dL 33.0-36.0 RED CELL DISTRIBUTION WIDTH (test code=RDW) 13.5 % 11.6-16.2 PLATELET COUNT (test code=PLT) 186 K/mm3 150-450 MEAN PLATELET VOLUME (test code=MPV) 10.4 fL 6.7-11.0 BASIC METABOLIC [id number] 02:01:00* Test Item Value Reference Range Comments SODIUM (test code=NA) 133 mmol/L 136-145 POTASSIUM (test code=K) 4.6 mmol/L 3.5-5.1 CHLORIDE (test code=CL) 100.0 mmol/L 98-107 CARBON DIOXIDE (test code=CO2) 20.0 mmol/L 21-32 ANION GAP (test code=GAP) 17.6 10-20 GLUCOSE (test code=GLU) 594 mg/dL 74-106 Results called to [id number] by KENAN 06/02/18 0201Critical results verified and read back by Nurse? Y BLOOD UREA NITROGEN (test code=BUN) 29 mg/dL 7-18 GLOMERULAR FILTRATION RATE (test code=GFR) 45 mL/min >=60 Estimated GFR by using Modified MDRD formula.Chronic kidney disease is defined as either kidney damageor GFR <60 mL/min/1.73 m2 for >3 months. CREATININE (test code=CREAT) 1.60 mg/dL 0.7-1.3 BUN/CREATININE RATIO (test code=BUN/CREA) 18.1 10-20 CALCIUM (test code=CA) 9.0 mg/dL 8.5-10.1 HEPATIC FUNCTION [id number] 02:01:00* Test Item Value Reference Range Comments TOTAL PROTEIN (test code=PROT) 7.3 gram/dL 6.4-8.2 ALBUMIN (test code=ALB) 3.4 g/dL 3.4-5.0 GLOBULIN (test code=GLOB) 3.9 gram/dL 2.7-4.2 ALBUMIN/GLOBULIN RATIO (test code=A/G) 0.9 0.75-1.50 BILIRUBIN TOTAL (test code=BILT) 0.50 mg/dL 0.0-1.0 BILIRUBIN DIRECT (test code=BILD) 0.16 mg/dL 0.0-0.20 SGOT/AST (test code=AST) 54 IUnit/L 15-37 SGPT/ALT (test code=ALT) 71 IUnit/L 12-78 ALKALINE PHOSPHATASE TOTAL (test code=ALKP) 124 IUnit/L 45-117 Note change in reference range due to change in reagent. [id number] 02:01:00* Test Item Value Reference Range Comments LIPASE (test code=LIP) 427 U/L 73.0-393.0 [id number] 02:01:00* Test Item Value Reference Range Comments MAGNESIUM (test code=MAG) 2.2 mg/dL 1.8-2.4 [id number] 02:01:00* Test Item Value Reference Range Comments TROPONIN-I (test code=TROPI) <0.015 ng/mL 0-0.045 BASIC METABOLIC [id number] 01:55:00* Test Item Value Reference Range Comments SODIUM (test code=NA) 133 mmol/L 136-145 POTASSIUM (test code=K) 4.6 mmol/L 3.5-5.1 CHLORIDE (test code=CL) 100.0 mmol/L 98-107 CARBON DIOXIDE (test code=CO2) 20.0 mmol/L 21-32 ANION GAP (test code=GAP) 17.6 10-20 GLUCOSE (test code=GLU) mg/dL 74-106 BLOOD UREA NITROGEN (test code=BUN) 29 mg/dL 7-18 GLOMERULAR FILTRATION RATE (test code=GFR) 45 mL/min >=60 Estimated GFR by using Modified MDRD formula.Chronic kidney disease is defined as either kidney damageor GFR <60 mL/min/1.73 m2 for >3 months. CREATININE (test code=CREAT) 1.60 mg/dL 0.7-1.3 BUN/CREATININE RATIO (test code=BUN/CREA) 18.1 10-20 CALCIUM (test code=CA) 9.0 mg/dL 8.5-10.1 HEPATIC FUNCTION [id number] 01:55:00* Test Item Value Reference Range Comments TOTAL PROTEIN (test code=PROT) 7.3 gram/dL 6.4-8.2 ALBUMIN (test code=ALB) 3.4 g/dL 3.4-5.0 GLOBULIN (test code=GLOB) 3.9 gram/dL 2.7-4.2 ALBUMIN/GLOBULIN RATIO (test code=A/G) 0.9 0.75-1.50 BILIRUBIN TOTAL (test code=BILT) 0.50 mg/dL 0.0-1.0 BILIRUBIN DIRECT (test code=BILD) 0.16 mg/dL 0.0-0.20 SGOT/AST (test code=AST) 54 IUnit/L 15-37 SGPT/ALT (test code=ALT) 71 IUnit/L 12-78 ALKALINE PHOSPHATASE TOTAL (test code=ALKP) 124 IUnit/L 45-117 Note change in reference range due to change in reagent. [id number] 01:55:00* Test Item Value Reference Range Comments LIPASE (test code=LIP) 427 U/L 73.0-393.0 [id number] 01:55:00* Test Item Value Reference Range Comments MAGNESIUM (test code=MAG) 2.2 mg/dL 1.8-2.4 [id number] 01:55:00* Test Item Value Reference Range Comments TROPONIN-I (test code=TROPI) <0.015 ng/mL 0-0.045 BASIC METABOLIC [id number] 01:44:00* Test Item Value Reference Range Comments SODIUM (test code=NA) 133 mmol/L 136-145 POTASSIUM (test code=K) 4.6 mmol/L 3.5-5.1 CHLORIDE (test code=CL) 100.0 mmol/L 98-107 CARBON DIOXIDE (test code=CO2) 20.0 mmol/L 21-32 ANION GAP (test code=GAP) 17.6 10-20 GLUCOSE (test code=GLU) mg/dL 74-106 BLOOD UREA NITROGEN (test code=BUN) 29 mg/dL 7-18 GLOMERULAR FILTRATION RATE (test code=GFR) 45 mL/min >=60 Estimated GFR by using Modified MDRD formula.Chronic kidney disease is defined as either kidney damageor GFR <60 mL/min/1.73 m2 for >3 months. CREATININE (test code=CREAT) 1.60 mg/dL 0.7-1.3 BUN/CREATININE RATIO (test code=BUN/CREA) 18.1 10-20 CALCIUM (test code=CA) 9.0 mg/dL 8.5-10.1 HEPATIC FUNCTION [id number] 01:44:00* Test Item Value Reference Range Comments TOTAL PROTEIN (test code=PROT) 7.3 gram/dL 6.4-8.2 ALBUMIN (test code=ALB) 3.4 g/dL 3.4-5.0 GLOBULIN (test code=GLOB) 3.9 gram/dL 2.7-4.2 ALBUMIN/GLOBULIN RATIO (test code=A/G) 0.9 0.75-1.50 BILIRUBIN TOTAL (test code=BILT) 0.50 mg/dL 0.0-1.0 BILIRUBIN DIRECT (test code=BILD) 0.16 mg/dL 0.0-0.20 SGOT/AST (test code=AST) 54 IUnit/L 15-37 SGPT/ALT (test code=ALT) 71 IUnit/L 12-78 ALKALINE PHOSPHATASE TOTAL (test code=ALKP) 124 IUnit/L 45-117 Note change in reference range due to change in reagent. [id number] 01:44:00* Test Item Value Reference Range Comments LIPASE (test code=LIP) U/L 73.0-393.0 [id number] 01:44:00* Test Item Value Reference Range Comments MAGNESIUM (test code=MAG) mg/dL 1.8-2.4 [id number] 01:44:00* Test Item Value Reference Range Comments TROPONIN-I (test code=TROPI) ng/mL 0-0.045 - XR CHEST 1 [id number] 01:40:00 [place]: [address]: PRE Name: ISAIAS OTT [facility] : [birth year] 59 Age/S: 57/M [address] [facility] Unit #: [id number] Loc: [place] [address] Phys: Lizzie Barrientos MD Acct: [id number] Dis Date: Status: PRE ER PHONE #: [phone] Exam Date: 06/02/2018 0123 FAX #: [phone] Reason: CHEST PAIN EXAMS: CPT CODE: [id number] XR CHEST 1 V 71460 LOCATION: Q15 HISTORY: 57-year-old male with chest pain. COMMENT: A frontal chest radiograph was obtained at the bedside at 1:30 a.m., and compared to a prior study of September 22, 2017. The lungs are clear and well- aerated. The cardiac silhouette, tima, and mediastinum are within normal limits. The skeleton is intact, and the surrounding soft tissues are unre markable. IMPRESSION: Unremarkable portable ex amination of the chest. at 0140 Reported and signed by: Farida Colbert M.D. CC: Technologist: RT KELLIE Trnscrd Date/Time/By: 2018 (0140) : By: [email or web address] Orig Print D/T: S: 06/02/2018 (0143) PAGE 1 Signed Report BASIC METABOLIC [id number] 01:37:00* Test Item Value Reference Range Comments SODIUM (test code=NA) 133 mmol/L 136-145 POTASSIUM (test code=K) 4.6 mmol/L 3.5-5.1 CHLORIDE (test code=CL) 100.0 mmol/L 98-107 CARBON DIOXIDE (test code=CO2) mmol/L 21-32 ANION GAP (test code=GAP) 10-20 GLUCOSE (test code=GLU) mg/dL 74-106 BLOOD UREA NITROGEN (test code=BUN) mg/dL 7-18 GLOMERULAR FILTRATION RATE (test code=GFR) mL/min >=60 CREATININE (test code=CREAT) mg/dL 0.7-1.3 BUN/CREATININE RATIO (test code=BUN/CREA) 10-20 CALCIUM (test code=CA) mg/dL 8.5-10.1 HEPATIC FUNCTION [id number] 01:37:00* Test Item Value Reference Range Comments TOTAL PROTEIN (test code=PROT) gram/dL 6.4-8.2 ALBUMIN (test code=ALB) g/dL 3.4-5.0 GLOBULIN (test code=GLOB) gram/dL 2.7-4.2 ALBUMIN/GLOBULIN RATIO (test code=A/G) 0.75-1.50 BILIRUBIN TOTAL (test code=BILT) mg/dL 0.0-1.0 BILIRUBIN DIRECT (test code=BILD) mg/dL 0.0-0.20 SGOT/AST (test code=AST) IUnit/L 15-37 SGPT/ALT (test code=ALT) IUnit/L 12-78 ALKALINE PHOSPHATASE TOTAL (test code=ALKP) IUnit/L 45-117 [id number] 01:37:00* Test Item Value Reference Range Comments LIPASE (test code=LIP) U/L 73.0-393.0 [id number] 01:37:00* Test Item Value Reference Range Comments MAGNESIUM (test code=MAG) mg/dL 1.8-2.4 [id number] 01:37:00* Test Item Value Reference Range Comments TROPONIN-I (test code=TROPI) ng/mL 0-0.045 [id number] 01:37:00* Test Item Value Reference Range Comments AMMONIA (test code=AMM) 18 umol/L 11-32 Culture, [id number] 08:13:00Specimen: Urine, CC-MidstreamCollected: 07/24/2016 11:53 Status: Final Last Updated: 07/27/2016 08:13 (1) ER Bed 5 Culture Result (Final) (Final) 07/26/16 No growth 24 hours 07/27/16 >100,000 CFU/mL Yeast POC Glucose, [id number] 15:30:00* Test Item Value Reference Range Comments POC Glucose (test code=POCGLUC) 193 mg/dL 70-115 If you consider your patient critically ill, the Nathanael Accu-Chek InformII metershould not be used for Glucose determinations.Draw a venous Glucose and send to the Main Lab for Analysis. Urinalysis [id number] 13:45:00* Test Item Value Reference Range Comments Color (test code=COLOR) Yellow Yellow,Straw,Pl yellow Clarity (test code=CLAR) Sl Cloudy Clear Specific Clyman (test code=SPGR) 1.024 1.001-1.035 pH (test code=PH) 5.0 5.0-9.0 Ketone (test code=KET) 50 mg/dL Negative Glucose (test code=GLUCUR) 1000 mg/dL Negative Protein (test code=PROT) 75 mg/dL Negative Bilirubin (test code=BILI) Negative mg/dL Negative Occult Blood (test code=UDOB) Small Negative Urobilinogen (test code=UROB) 0.2 mg/dL 0.2-1.0 Nitrite (test code=NIT) Negative Negative Leuk Esterase (test code=LEUK) Moderate Negative Micros Exam (test code=MEXAM) Indicated Epithelial Cells (test code=EPI) 6-9 /LPF 0-30 WBC, Urine (test code=UWBC) 50+ /HPF 0-5 RBC, Urine (test code=URBC) 0-3 /HPF 0-5 Bacteria (test code=BACT) Few /HPF Yeast (test code=YEAST) Many /HPF CBC with [id number] 12:42:00* Test Item Value Reference Range Comments WBC (test code=WBC) 8.6 K/cumm 4.4-10.5 RBC (test code=RBC) 5.43 M/cumm 4.10-5.70 Hemoglobin (test code=HGB) 15.2 gm/dL 13.4-17.4 Hematocrit (test code=HCT) 47.3 % 38.7-52.0 MCV (test code=MCV) 87.0 fL 80-100 MCH (test code=MCH) 28.0 pg 27.0-32.5 MCHC (test code=MCHC) 32.2 g/dL 32.0-37.5 RDW (test code=RDW) 17.2 % 11.5-14.5 Platelet Count (test code=PLTCT) 198 K/cumm 140-440 MPV (test code=MPV) 8.8 fL Diff Method (test code=DIFFM) Auto Neutrophil (test code=NEUT) 65.8 % 36-70 Lymphocyte (test code=LYMPH) 29.0 % 12-44 Monocyte (test code=MONO) 3.9 % 0-11 Eosinophil (test code=EOS) 0.7 % 0-7 Basophil (test code=BASO) 0.6 % 0-2 Neutro Abs (test code=ANEUT) 5.6 K/cumm 1.6-7.4 Lymph Abs (test code=ALYMPH) 2.5 K/cumm 0.5-4.6 [place] Abs (test code=AMONO) 0.3 K/cumm 0.0-1.2 Eos Abs (test code=AEOS) 0.06 K/cumm 0.00-0.74 Baso Abs (test code=ABASO) 0.1 K/cumm 0.00-0.21 [id number] 12:36:00* Test Item Value Reference Range Comments Amphetamine (test code=AMPH) Negative Negative For diagnostic purposes only, positive results should always be assessedin conjunctionwith the patient's medical history,clinical examination and otherfindings.To fulfill legal requirements, a more specific alternate chemical methodmust be used inorder to obtain a Confirmed analytical result. GC/MS is the preferred confirmatory method. Barbiturates (test code=DARRYL) Negative Negative Benzodiazepine (test code=BAR) Negative Negative Cocaine (test code=COCA) POSITIVE Negative Methadone (test code=MTHD) Negative Negative Opiates (test code=OPIA) Negative Negative PCP (test code=PCP) Negative Negative Propoxyphene (test code=PROPOX) Negative Negative THC (test code=THC) Negative Negative Alcohol, Urine (test code=ETOHU) 0.04 g/dL 0.00-0.01 Comprehensive Metabolic [id number] 12:32:00* Test Item Value Reference Range Comments Sodium (test code=NA) 130 mmol/L 135-145 Potassium (test code=K) 4.3 mmol/L 3.5-5.1 Chloride (test code=CL) 86 mmol/L 98-105 Carbon Dioxide (test code=CO2) 21 mmol/L 22-29 Glucose (test code=GLU) 385 mg/dL 70-115 Blood Urea Nitrogen (test code=BUN) 19 mg/dL 6-20 Creatinine (test code=CREAT) 1.1 mg/dL 0.7-1.2 Calcium (test code=CA) 11.4 mg/dL 8.3-10.5 Prot Total (test code=TP) 10.0 g/dL 6.4-8.3 Albumin (test code=ALB) 4.9 g/dL 3.5-5.2 A/G Ratio (test code=AGRATIO) 1.0 Ratio Globulin (test code=GLOB) 5.1 2.9-3.1 Bili Total (test code=TBIL) 1.9 mg/dL 0.1-0.9 Alk Phos (test code=APHOS) 138 U/L 40-129 AST (test code=AST) 36 U/L 1-40 ALT (test code=ALT) 46 U/L 1-41 BUN/Creatinine Ratio (test code=BCRATIO) 17.3 Anion Gap (test code=AGAP) 23 mmol/L 7-16 Estimated GFR (test code=GFR) >60 mL/min/1.73m2 eGFR (estimated Glomerular Filtration Rate) is an estimated value,calculated from the patient's serum creatinine using the MDRD equation.It is NOT the patient's actual GFR. The eGFR provides a more clinicallyuseful measure of kidney disease than serum creatinine alone.This calculation takes sex and race into account, if the informationis provided. If the race is not provided, and the patient isAfrican-Italian, multiply by 1.212. If sex is not provided, and thepatient is female, multiply by 0.742. Results for patients <18 years ofage have not been validated by the MDRD study and should be interpretedwith caution.eGFR Result Interpretation:eGFR > or=60 is in the Normal RangeeGFR < 60 may mean kidney diseaseeGFR < 15 may mean kidney failureRanges recommended by the National Kidney Foundat ion,http://nkdep.nih.gov [id number] 12:32:00* Test Item Value Reference Range Comments Acetone [Serum] (test code=ACETONE) Small Negative Blood Gas+Lytes+Glu+Ca+Hgb+Hct+[id number] 11:45:00* Test Item Value Reference Range Comments pH, Blood Gas (test code=BGPH) 7.589 pH Units 7.35-7.45 pCO2 (test code=PCO2) 20.6 mm Hg 35-45 pO2 (test code=PO2) 119.0 mm Hg 80-100 Bicarbonate (test code=HCO3) 19.7 mmol/L 22.0-26.0 Base Excess (test code=BE) -0.2 mmol/L O2 Saturation (test code=O2SAT) 98.5 % 80.0-100.0 Sodium, Blood Gas (test code=BGNA) 132 mmol/L 135-145 Potassium, Blood Gas (test code=BGK) 4.2 mmol/L 3.5-4.5 Chloride, Blood Gas (test code=BGCL) 99 mmol/L 98-105 Calcium, Ionized, Blood Gas (test code=BGCAI) 1.19 mmol/L 1.00-1.50 Glucose, Blood Gas (test code=BGGLU) 393 mg/dL 75-115 tHB (test code=RTHB) 12.9 gm/dL 12.2-17.4 Hematocrit, Blood Gas (test code=BGHCT) 39.5 % 34.0-52.0 O2Hb (test code=RO2HB) 96 80-100 Carboxyhemoglobin (test code=CARHGB) 1.7 % 0.0-20.0 Methemoglobin (test code=METHGB) 0.7 % 0.0-20.0 FIO2 % (test code=FIO2) 21 % Patient Temperature (test code=PTTEMP) 37.0 Degrees Celcius Comment (test code=COMMENT) [email or web address] Puncture Site (test code=PUNSITE) Brachial. R Drawing Tech ID (test code=DRAWTECH) sm iPAP (test code=IPAP) 0 cmH2O Respiratory Rate (test code=RESP RATE) 0 Lactic Acid, Blood Gas (test code=BGLA) 1.3 mmol/L
[2019-04-18 16:25] LABS: CLARITY,URINE CLOUDY (CLEAR); COLOR,URINE STRAW (YELLOW)
[2019-04-18 16:26] LABS: AMPHETAMINES SCREEN,URINE NEGATIVE (NEGATIVE); BENZODIAZEPINES SCREEN,URINE NEGATIVE (NEGATIVE); BILIRUBIN,URINE NEGATIVE (NEGATIVE); KETONES,URINE 2+ (NEGATIVE); LEUKOCYTE ESTERASE ,URINE 1+ (NEGATIVE); NITRITE,URINE NEGATIVE (NEGATIVE); PHENCYCLIDINE SCREEN,URINE NEGATIVE (NEGATIVE); PROTEIN,URINE DIPSTICK 2+ (NEGATIVE); URINE UROBILINOGEN 1 mg/dL (0.2 - 1)
[2019-04-18 16:35] LABS: BACTERIA,URINE MODERATE /HPF; WBC,URINE (MAN) >50 /HPF (0-5)
--- NOTE | 2019-04-18 17:09 | Diagnostic Imaging Report ---
EXAMINATION: RIBS BILAT W/CXR INDICATION: Rib cage pain COMPARISON: None FINDINGS: LINES/TUBES:None LUNGS:The lungs are well-inflated. No focal consolidation or pulmonary edema. PLEURA:No pleural effusion or pneumothorax. MEDIASTINUM:The cardiomediastinal silhouette appears normal in size and shape. BONES/SOFT TISSUES:Note is placed rib fracture. ABDOMEN:No free air under the diaphragm. IMPRESSION: No focal pneumonia or pulmonary edema. No displaced rib fracture. Signed by: Sadaf Figueroa MD on 04/18/2019 5:07 PM
[2019-04-18] MEDS ORDERED: CEFTRIAXONE SOD 1 GM VIAL IV SCH (17:15)
[2019-04-18] MEDS ORDERED: CEFTRIAXONE SOD 1 GM/NS 50 ML 50 ML IV ONE (17:30)
[2019-04-18 17:45] LABS: BASOPHILS # (AUTO) 0.1 (0.0-0.1); BASOPHILS % 0.4 % (0.0-1.0); EOSINOPHILS # (AUTO) 0.1 (0.0-0.4); EOSINOPHILS % 0.4 % (0.0-6.0); HEMATOCRIT 29.7 % (38.2-49.6); HEMOGLOBIN 9.6 g/dL (14.0-18.0); LYMPHOCYTES # (AUTO) 1.3 (1.0-3.2); LYMPHOCYTES % 9.6 % (18.0-39.1); MEAN CORPUSCULAR HEMOGLOBIN 27.1 pg (28-32); MEAN CORPUSCULAR HGB CONC 32.3 g/dL (31-35); MEAN CORPUSCULAR VOLUME 83.9 fL (81-99); MONOCYTES # (AUTO) 0.9 (0.2-0.8); MONOCYTES % 6.5 % (4.4-11.3); NEUTROPHILS # (AUTO) 10.7 (2.1-6.9); NEUTROPHILS % 81.7 % (38.7-80.0); PLATELET COUNT 226 x10e3/uL (140-360); RED BLOOD COUNT 3.54 x10e6/uL (4.3-5.7); RED CELL DISTRIBUTION WIDTH 13.7 % (11.7-14.4)
[2019-04-18 18:03] LABS: INR 1.18; PARTIAL THROMBOPLASTIN TIME 34.5 seconds (23.8-35.5); PROTHROMBIN TIME 15.8 seconds (11.9-14.5)
[2019-04-18 18:06] LABS: ALANINE AMINOTRANSFERASE 6 IU/L (0-55); ALBUMIN 1.9 g/dL (3.5-5.0); ALBUMIN/GLOBULIN RATIO 0.4 (0.8-2.0); ALKALINE PHOSPHATASE 92 IU/L (40-150); AMYLASE 15 U/L (25-125); ANION GAP 15.9 mmol/L (8-16); BLOOD UREA NITROGEN 23 mg/dL (7-26); BUN/CREATININE RATIO 20 (6-25); CALCIUM 7.9 mg/dL (8.4-10.2); CARBON DIOXIDE 23 mmol/L (22-29); CHLORIDE 97 mmol/L (98-107); CREATINE KINASE 10 IU/L (30-200); CREATININE, SERUM 1.14 mg/dL (0.72-1.25); EST GLOMERULAR FILTRATION RATE > 60 ML/MIN (60-); LIPASE 7 U/L (8-78); POTASSIUM 3.9 mmol/L (3.5-5.1); SODIUM 132 mmol/L (136-145)
[2019-04-18 18:10] LABS: GLUCOSE 415 mg/dL (74-118)
[2019-04-18] MEDS ORDERED: INSULIN REGULAR, HUMAN 100 UNIT/1 ML 3ML VIAL SQ ONE (18:30)
[2019-04-18] MEDS ORDERED: SODIUM CHLORIDE 0.9% 50ML 50 ML ONE (19:57)
[2019-04-18] MEDS ORDERED: IOPAMIDOL 370 MG/ML 200 ML INFUS..BTL INJ ONE (19:57)
--- NOTE | 2019-04-18 20:44 | Diagnostic Imaging Report ---
EXAM: CT Abdomen and Pelvis WITH contrast INDICATION: abd pain n/v/d COMPARISON: None. TECHNIQUE: Abdomen and pelvis were scanned utilizing a multidetector helical scanner from the lung base to the pubic symphysis after administration of IV contrast. Coronal and sagittal reformations were obtained. Dose modulation, iterative reconstruction, and/or weight based adjustment of the mA/kV was utilized to reduce the radiation dose to as low as reasonably achievable. Routine protocol was performed. Scan was performed when during portal venous phase. IV CONTRAST: 150 mL of Omnipaque 300 ORAL CONTRAST: Water COMPLICATIONS: None RADIATION DOSE: Total DLP: 266.4 mGy-cm Estimated effective dose: (DLP x 0.015 x size factor) mSv CTDIvol has been reviewed. It is below the limits set by the Radiation Protocol Committee (RPC). FINDINGS: LINES and TUBES: None. LOWER THORAX: There is bibasilar atelectasis. HEPATOBILIARY: No focal hepatic lesions. No biliary ductal dilation. GALLBLADDER: No radio-opaque stones or sludge. No wall thickening. SPLEEN: No splenomegaly. PANCREAS: There is fatty atrophy of the pancreas. ADRENALS: No adrenal nodules KIDNEYS/URETERS: There is a wedge-shaped area of decreased enhancement in the upper pole of the right kidney (series 2, image 29). Multiple ill-defined perinephric complex fluid collections are seen, indeterminate could represent hemorrhagic cyst or perinephric hematomas, these include: 2.7 cm abutting the right upper pole (series 2, image 28). 3.6 cm abutting the left lower pole (series 2, image 40), 2.8 cm abutting the right upper pole (series 2, image 34). No stones. GI TRACT: There is diffuse wall thickening of the antrum and pylorus. There is mild wall thickening of the sigmoid colon. Infectious. No obstruction. PELVIC ORGANS/BLADDER: Marked bladder wall thickening an enhancement likely due to cystitis. LYMPH NODES: Slightly prominent mesenteric and retroperitoneal lymph nodes are likely reactive. VESSELS: There is mild atherosclerotic disease in the aorta and major arterial branches. PERITONEUM / RETROPERITONEUM: No free air. BONES/SOFT TISSUES: Mildly displaced left lateral 11th rib fracture (series 2, image 33) with adjacent hematoma seen extending superiorly measuring 9.9 cm. 2.0 cm cystic lesion involving the right perineum (series 2, image 90) could be resolving hematoma. IMPRESSION: 1. Mildly displaced left lateral 11th rib fracture with adjacent hematoma measuring up to 9.9 cm. 2. A wedge-shaped area of decreased enhancement in the upper pole of the right kidney likely due to ischemia or contusion. 3. Multiple ill-defined perinephric complex fluid collections are seen, indeterminate could represent hemorrhagic cyst or perinephric hematomas. 4. Diffuse wall thickening of the antrum and pylorus of the stomach as well as sigmoid colon could be traumatic, infectious or neoplastic. 5. Marked bladder wall thickening and enhancement likely due to cystitis. Signed by: Ramos Mora MD on 04/18/2019 8:41 PM
[2019-04-18] MEDS ORDERED: NOVOLOG100 UNITS1 SQ (20:47)
[2019-04-18] MEDS ORDERED: METOPROLOL SUCC25 MG (20:47)
[2019-04-18] MEDS ORDERED: SIMVASTATIN20 MG (20:47)
[2019-04-18] MEDS ORDERED: OMEPRAZOLE40 MG PO (20:47)
[2019-04-18] MEDS ORDERED: MIDODRINE HCL2.5 MG PO (20:50)
[2019-04-18] MEDS ORDERED: LEVEMIR FL100 UNIT/1 (20:50)
[2019-04-18] MEDS ORDERED: GABAPENTIN600 MG (20:50)
[2019-04-18] MEDS ORDERED: LOPRESSOR25 MG (20:50)
[2019-04-18] MEDS: SODIUM CHLORIDE 0.9% 1000ML 1,000 ML IV SCH (22:39)
[2019-04-18] MEDS ORDERED: ACETAMINOPHEN/CODEINE 300MG - 30MG TAB PO PRN (22:45)
[2019-04-18] MEDS ORDERED: ONDANSETRON HCL INJ 2MG/ML 2ML 2 MG/ML VIAL IV PRN (23:00)
[2019-04-18] MEDS ORDERED: MORPHINE SULFATE 2 MG/ML SYR 1ML IV PRN (23:00)
[2019-04-18] MEDS ORDERED: DEXTROSE 50% SYRINGE 50 ML IV PRN (23:15)
--- NOTE | 2019-04-19 03:50 | NUR ---
assumed care of patient at this time. to room to assess vs. pt resting quietly in bed. no distress noted. resp even and unlabored on ra. stretcher in low position and locked. callbell within reach.
[2019-04-19] MEDS: SODIUM CHLORIDE 0.9% 1000ML 1,000 ML IV SCH ×3 (05:59→22:46)
[2019-04-19 06:05] LABS: BASOPHILS % 0.2 % (0.0-1.0); EOSINOPHILS # (AUTO) 0.1 (0.0-0.4); EOSINOPHILS % 0.4 % (0.0-6.0); HEMOGLOBIN 9.2 g/dL (14.0-18.0); LYMPHOCYTES # (AUTO) 1.5 (1.0-3.2); LYMPHOCYTES % 11.2 % (18.0-39.1); MEAN CORPUSCULAR HEMOGLOBIN 26.8 pg (28-32); MEAN CORPUSCULAR HGB CONC 31.7 g/dL (31-35); MEAN CORPUSCULAR VOLUME 84.5 fL (81-99); MONOCYTES # (AUTO) 1.1 (0.2-0.8); MONOCYTES % 7.8 % (4.4-11.3); NEUTROPHILS # (AUTO) 10.9 (2.1-6.9); NEUTROPHILS % 79.2 % (38.7-80.0); PLATELET COUNT 216 x10e3/uL (140-360); RED BLOOD COUNT 3.43 x10e6/uL (4.3-5.7); RED CELL DISTRIBUTION WIDTH 13.8 % (11.7-14.4)
[2019-04-19] MEDS ORDERED: INSULIN REGULAR, HUMAN 100 UNIT/1 ML 3ML VIAL SQ SCH (07:30)
[2019-04-19] MEDS ORDERED: DEXTROSE 50% SYRINGE 50 ML IV PRN (07:45)
[2019-04-19] MEDS: PANTOPRAZOLE SOD 40 MG TABEC PO SCH (08:25)
[2019-04-19] MEDS ORDERED: GABAPENTIN 300 MG CAP ONE (08:25)
[2019-04-19] MEDS: METOPROLOL TARTRATE 25 MG TAB PO SCH ×2 (08:25→17:00)
[2019-04-19] MEDS ORDERED: CEFTRIAXONE SOD 1 GM VIAL ONE (08:26)
[2019-04-19 08:40] LABS: ALBUMIN 1.8 g/dL (3.5-5.0); ALBUMIN/GLOBULIN RATIO 0.4 (0.8-2.0); ALKALINE PHOSPHATASE 84 IU/L (40-150); ANION GAP 14.1 mmol/L (8-16); BLOOD UREA NITROGEN 19 mg/dL (7-26); BUN/CREATININE RATIO 20 (6-25); CALCIUM 7.8 mg/dL (8.4-10.2); CARBON DIOXIDE 22 mmol/L (22-29); CHLORIDE 103 mmol/L (98-107); CREATININE, SERUM 0.93 mg/dL (0.72-1.25); EST GLOMERULAR FILTRATION RATE > 60 ML/MIN (60-); GLUCOSE 253 mg/dL (74-118); POTASSIUM 4.1 mmol/L (3.5-5.1); SODIUM 135 mmol/L (136-145)
[2019-04-19 08:43] LABS: ALANINE AMINOTRANSFERASE < 6 IU/L (0-55)
--- NOTE | 2019-04-19 08:50 | NUR ---
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 nurse to room and found pt naked holding penis in one hand and urinal in other stating he, "dont know how to pee in the jug." pt requested penis held and placed into urinal. 2nd male nurse called to room for asst. pt then asst w/urinal and voided <10cc. diaper placed, pt repositioned for comfort. pt easily aggitated. pt explained plan of care and stated he understood. call sorto to rail. vss.
[2019-04-19] MEDS: GABAPENTIN 300 MG CAP PO SCH ×3 (09:00→22:45)
[2019-04-19] MEDS ORDERED: MIDODRINE 2.5 MG TAB PO SCH (09:00)
[2019-04-19] MEDS ORDERED: NON-FORMULARY MEDICATION (Gabapentin 600 MG) SCH (09:00)
[2019-04-19] MEDS: INSULIN LISPRO 100 UNIT/1 ML 3ML VIAL SQ SCH ×4 (11:22→22:46)
--- NOTE | 2019-04-19 12:46 | NUR ---
ORDER FOR PUMPER HAND KINGSLEY YESTERDAY FROM DR BANG ATTEMPTED TO SPEAK WITH NURSE TODAY BUT NOT AVAILABLE PT APPEARS TO HAVE FALLEN AT HOME HOWEVER IS BEING EVALUATED FOR UTI CM WILL ADDRESS PT WHEN HE GETS TO FLOOR
[2019-04-19] MEDS: MIDODRINE HCL 5 MG TABLET PO SCH ×2 (13:37→17:00)
[2019-04-19 14:46] VITALS: BP 116/72
--- NOTE | 2019-04-19 15:00 | NUR ---
RECD PT FROM ER VIA BED ,AAOX3,C/O GENERALIZED PAIN DUE TO NUMEROUS FALLS AT HOME.IV INFUSING TO LT AC 20 G.NO SKIN BREAKDOWN NOTED.
[2019-04-19] MEDS: TRAMADOL HCL 50 MG TAB PO PRN ×2 (15:03→19:21)
[2019-04-19] MEDS ORDERED: FLOMAX0.4 MG PO (15:11)
--- NOTE | 2019-04-19 17:35 | NUR ---
PT TRANSPORTED TO CT SCAN VIA BED
--- NOTE | 2019-04-19 17:55 | Diagnostic Imaging Report ---
History:AMS Comparison studies:None Technique: Axial images were obtained from the skull base to the vertex. Coronal and sagittal images reconstructed from the axial data. Intravenous contrast: None Dose modulation, iterative reconstruction, and/or weight based adjustment of the mA/kV was utilized to reduce the radiation dose to as low as reasonably achievable. Findings: Scalp/skull: No abnormalities. Extra-axial spaces: No masses. No fluid collections. Brain sulci: Mildly prominent. Ventricles: Hdnm-mo-wzagowud compensatory dilatation. No hydrocephalus. Parenchyma: Few hypodensities in the supratentorial white matter are small vessel ischemic changes. No masses, hemorrhage, acute or chronic cortical vascular insults. Sellar/suprasellar region: No abnormalities. Craniocervical junction: Patent foramen magnum. No Chiari one malformation. Incidental findings: Atherosclerotic calcifications in the carotid siphons . Impression: No acute abnormalities. Chronic findings: 1. Mild to moderate generalized volume loss. 2. Mild supratentorial white matter small vessel ischemic changes. Signed by: DR Alex Stein M.D. on 04/19/2019 5:52 PM
[2019-04-19] MEDS: CEFTRIAXONE SOD 1 GM/NS 50 ML 50 ML IV SCH (18:16)
--- NOTE | 2019-04-19 18:20 | NUR ---
PT RETURNED TO ROOM VIA BED ,NO DISTRESS NTOED.
[2019-04-19 20:00] VITALS: BP 142/75
[2019-04-19] MEDS: SIMVASTATIN 20 MG TAB PO SCH (22:45)
[2019-04-19] MEDS: KETOROLAC TROMETHAMINE 30 MG/ML VIAL IV PRN (22:45)
[2019-04-20] VITALS (9 sets, daily range): BP systolic 78–104; BP diastolic 51–70
[2019-04-20 05:09] LABS: BASOPHILS # (AUTO) 0.1 (0.0-0.1); BASOPHILS % 0.5 % (0.0-1.0); EOSINOPHILS # (AUTO) 0.2 (0.0-0.4); EOSINOPHILS % 1.2 % (0.0-6.0); HEMATOCRIT 31.1 % (38.2-49.6); HEMOGLOBIN 9.7 g/dL (14.0-18.0); LYMPHOCYTES # (AUTO) 2.9 (1.0-3.2); LYMPHOCYTES % 16.2 % (18.0-39.1); MEAN CORPUSCULAR HEMOGLOBIN 26.9 pg (28-32); MEAN CORPUSCULAR HGB CONC 31.2 g/dL (31-35); MEAN CORPUSCULAR VOLUME 86.1 fL (81-99); MONOCYTES # (AUTO) 1.2 (0.2-0.8); NEUTROPHILS # (AUTO) 13.1 (2.1-6.9); NEUTROPHILS % 73.8 % (38.7-80.0); PLATELET COUNT 314 x10e3/uL (140-360); RED BLOOD COUNT 3.61 x10e6/uL (4.3-5.7); RED CELL DISTRIBUTION WIDTH 14.2 % (11.7-14.4)
[2019-04-20] MEDS: SODIUM CHLORIDE 0.9% 1000ML 1,000 ML IV SCH ×3 (05:20→21:51)
[2019-04-20 05:27] LABS: MAGNESIUM 1.9 MG/DL (1.3-2.1)
[2019-04-20 05:29] LABS: ALANINE AMINOTRANSFERASE 6 IU/L (0-55); ALBUMIN 1.7 g/dL (3.5-5.0); ALBUMIN/GLOBULIN RATIO 0.4 (0.8-2.0); ALKALINE PHOSPHATASE 86 IU/L (40-150); ANION GAP 11.2 mmol/L (8-16); BLOOD UREA NITROGEN 19 mg/dL (7-26); BUN/CREATININE RATIO 17 (6-25); CALCIUM 8.2 mg/dL (8.4-10.2); CARBON DIOXIDE 25 mmol/L (22-29); CHLORIDE 106 mmol/L (98-107); CREATININE, SERUM 1.09 mg/dL (0.72-1.25); EST GLOMERULAR FILTRATION RATE > 60 ML/MIN (60-); GLUCOSE 80 mg/dL (74-118); POTASSIUM 4.2 mmol/L (3.5-5.1); SODIUM 138 mmol/L (136-145)
[2019-04-20 05:47] LABS: THYROID STIMULATING HORMONE 1.702 uIU/mL (0.350-4.940)
--- NOTE | 2019-04-20 07:00 | NUR ---
bedside report done. pt is sleeping, no s/s of distress. call light within reach and bed safety in place. family is at the bedside
[2019-04-20] MEDS: INSULIN LISPRO 100 UNIT/1 ML 3ML VIAL SQ SCH ×6 (07:30→21:00)
[2019-04-20] MEDS: GABAPENTIN 300 MG CAP PO SCH ×3 (09:02→20:46)
[2019-04-20] MEDS: METOPROLOL TARTRATE 25 MG TAB PO SCH ×2 (09:02→17:00)
[2019-04-20] MEDS: MIDODRINE HCL 5 MG TABLET PO SCH ×3 (09:02→17:54)
[2019-04-20] MEDS: PANTOPRAZOLE SOD 40 MG TABEC PO SCH (09:06)
[2019-04-20] MEDS: KETOROLAC TROMETHAMINE 30 MG/ML VIAL IV PRN ×2 (09:10→15:15)
[2019-04-20] MEDS: TRAMADOL HCL 50 MG TAB PO PRN ×2 (09:10→15:15)
--- NOTE | 2019-04-20 15:11 | NUR ---
WOUND CARE CONSULTATION PUP SCREEN NO PRESSURE AREAS NOTED PATIENT REMAINS ON STRICT PUP STATUS AND INTERVENTIONS AND ALTERNATING PRESSURE SURFACE Addendum: 04/20/19 at 1512 by Luis E Wyatt RN Amended: Links added.
[2019-04-20] MEDS: CEFTRIAXONE SOD 1 GM/NS 50 ML 50 ML IV SCH (17:55)
--- NOTE | 2019-04-20 19:32 | NUR ---
Patient received asleep in bed. at bedside. Arousable by tactile stimuli. No signs of pain or respiratory distress. IVF infusing at 125 cc/hr. Fall precautions implemented. Call light within reach.
[2019-04-20] MEDS: SODIUM CHLORIDE 0.9% 1000ML 500 ML IV SCH ×7 (20:45→23:41)
[2019-04-20] MEDS: SIMVASTATIN 20 MG TAB PO SCH (20:46)
--- NOTE | 2019-04-20 20:47 | NUR ---
Kiana (ROBOTICS MECHANIC for Dr. Zhao) notified of low blood pressure (78/56) with a HR of 82. Midodrine 5 mg given TID already. Order received to give NS 500 cc bolus .
--- NOTE | 2019-04-20 20:55 | NUR ---
Patient's IV on right hand inadvertently pulled out. Old IV removed with tip intact. New IV inserted in right hand 20G. Patient tolerated well.
[2019-04-20] MEDS: VANCOMYCIN 1GM/NS 250 ML 250 ML IV SCH (21:45)
--- NOTE | 2019-04-20 22:36 | NUR ---
Kiana (PARKS RECREATION DIRECTOR) notified of vital signs (BP: 94/66; HR: 82) s/p bolus administration of NS 500 cc. Will continue to monitor.
[2019-04-21] VITALS (8 sets, daily range): BP systolic 82–104; BP diastolic 52–66
--- NOTE | 2019-04-21 00:31 | NUR ---
Dr. Michelle Oneill notified of bladder scan record of urine retention of 418cc. New order received to insert 18F Coude Catheter.
--- NOTE | 2019-04-21 01:20 | NUR ---
18F Coude Catheter inserted in patient aseptically. Drainage bag placed below the level of the bladder. Drainage of 600 cc of urine recorded. Urine appeared milky, bloody and full of sediments.
[2019-04-21] MEDS: KETOROLAC TROMETHAMINE 30 MG/ML VIAL IV PRN ×3 (01:54→16:10)
[2019-04-21] MEDS: TRAMADOL HCL 50 MG TAB PO PRN ×2 (03:49→10:38)
--- NOTE | 2019-04-21 04:28 | NUR ---
Dr. Maximino Aponte here to see patient. New orders received for EGD procedure. Patient is to have lear Liquid breakfast and be NPO after breakfast.
[2019-04-21] MEDS: SODIUM CHLORIDE 0.9% 1000ML 1,000 ML IV SCH ×3 (05:41→21:41)
[2019-04-21 06:05] LABS: BASOPHILS # (AUTO) 0.1 (0.0-0.1); BASOPHILS % 0.3 % (0.0-1.0); EOSINOPHILS # (AUTO) 0.2 (0.0-0.4); EOSINOPHILS % 0.9 % (0.0-6.0); HEMATOCRIT 26.6 % (38.2-49.6); HEMOGLOBIN 8.2 g/dL (14.0-18.0); LYMPHOCYTES # (AUTO) 1.9 (1.0-3.2); LYMPHOCYTES % 11.8 % (18.0-39.1); MEAN CORPUSCULAR HEMOGLOBIN 27.1 pg (28-32); MEAN CORPUSCULAR HGB CONC 30.8 g/dL (31-35); MEAN CORPUSCULAR VOLUME 87.8 fL (81-99); MONOCYTES # (AUTO) 0.7 (0.2-0.8); MONOCYTES % 4.6 % (4.4-11.3); NEUTROPHILS # (AUTO) 12.9 (2.1-6.9); NEUTROPHILS % 81.1 % (38.7-80.0); PLATELET COUNT 201 x10e3/uL (140-360); RED BLOOD COUNT 3.03 x10e6/uL (4.3-5.7); RED CELL DISTRIBUTION WIDTH 14.6 % (11.7-14.4)
--- NOTE | 2019-04-21 06:20 | NUR ---
Patient/ informed of EGD procedure ,and NPO status after breakfast. Patient verbalized understanding and voluntarily signed "Disclosure and Consent" form.
[2019-04-21 06:35] LABS: BLOOD UREA NITROGEN 22 mg/dL (7-26); BUN/CREATININE RATIO 18 (6-25); CALCIUM 7.4 mg/dL (8.4-10.2); CARBON DIOXIDE 20 mmol/L (22-29); CHLORIDE 109 mmol/L (98-107); CREATININE, SERUM 1.21 mg/dL (0.72-1.25); EST GLOMERULAR FILTRATION RATE > 60 ML/MIN (60-); MAGNESIUM 1.7 MG/DL (1.3-2.1); SODIUM 135 mmol/L (136-145)
[2019-04-21 06:42] LABS: GLUCOSE 160 mg/dL (74-118)
[2019-04-21 06:56] LABS: IRON 11 ug/dL (65-175); TRANSFERRIN < 70 mg/dL (174-364)
--- NOTE | 2019-04-21 07:00 | NUR ---
bedside report done. pt is sleeping, no s/s of distress. call light within reach. family member at the bedside.
--- NOTE | 2019-04-21 07:08 | NUR ---
Walking rounds done. Patient resting comfortably. BBSR given to oncoming nurse.
[2019-04-21 07:13] LABS: FERRITIN 413.23 ng/mL (21.81-274.66)
[2019-04-21] MEDS: INSULIN LISPRO 100 UNIT/1 ML 3ML VIAL SQ SCH ×6 (07:30→20:44)
[2019-04-21] MEDS: METOPROLOL TARTRATE 25 MG TAB PO SCH ×2 (07:42→15:44)
[2019-04-21] MEDS: LIDOCAINE 4% PATCH TP SCH (08:40)
[2019-04-21] MEDS: PANTOPRAZOLE SOD 40 MG TABEC PO SCH (08:45)
[2019-04-21] MEDS: GABAPENTIN 300 MG CAP PO SCH ×3 (08:45→21:00)
[2019-04-21] MEDS: MIDODRINE HCL 5 MG TABLET PO SCH ×3 (08:45→16:10)
--- NOTE | 2019-04-21 09:05 | NUR ---
Nutrition Intervention Note RD Recommendation(s) for Physician: ADAT to 1800 calorie carb controlled diet per MD, texture per speech. Plan of Care: RD following, monitoring for tolerance and adequacy. Education provided. Glucerna TID when diet advances. Nutrition reason for involvement: (MD Consult- hypoalbuminemia) RD Assessment 04/20: 58 YOM admitted for dehydration with PMH listed below. The pt was seen resting in bed, at bedside. The answered most of the questions. She reported the pt had a poor appetite for about one week prior to admission but has been losing weight for about 6 months (50 lbs per ). There are no weights in the his EMR besides in 2014 where he was 150 lbs, per the his UBW is 120 lbs. and pt were educated on high calorie, high protein foods as well T2DM MNT. They verbalized understanding. Encouraged use of high protein snacks with carbohydrate source and Glucerna supplement at home. Pt is currently clear liquids for procedure later today (EGD). Pt had swallow eval yesterday, pending MBS d/t the pts reporting the pt coughs when he eats. Will continue to monitor. Principal Problems/Diagnoses: Dehydration PMH: DM, Hep C GI: Abd: soft, non tender, LBM: not recorded Skin: no pressure ulcer recorded Labs: 04/20: POC GM: 182, Na 135, Cl 109, CO2 20, Gluc 160, Ca 7.4, Albumin- 1.7 Meds: gabapentin, protonix, insulin, abx, zofran Ht:69 in Wt:150 lbs BMI:22.2 kg/m^2 IBW:160 lbs Malnutrition Evaluation (04/20) Unable to evaluate. Will re-evaluate at follow-up as appropriate. Energy intake: <75% of estimated energy requirements for >7 days Weight loss: -unable to evaluate Fat loss: none Muscle loss: Mild-clavicle, temporal Supporting Evidence: Fluid accumulation: unable to evaluate Functional Status: no changes, measurably reduced, unable to evaluate Nutrition Prescription (Diet Order): clear liquids Estimated Nutritional Needs: Calories: 1700-2380kcal/day (25- 35 kcal/kg/day) Weight used : CBW 68 kg Protein : 68-102protein/day (1-1.5 gram/kg/day ) Weight used: CBW 68 kg Diet Adequacy: Not meeting calorie needs, Not meeting protein needs Diet Education Needs Assessment: Diet education indicated and patient agreeable. agreeable Nutrition Care Level: mod Nutrition Diagnosis: Inadequate energy intake related to medical condition as evidenced by the pt being on clear liquids and reports of poor appetite. Goal: Patient will meet 75-100% of estimated needs by follow up Progress: N/A Interventions: -( carb, texture per speech modified diet, Commercial beverage, Collaboration with other providers Monitoring/Evaluation: -(Total energy intake, Total protein intake, Modified diet, Liquid supplement, Weight change Signed: Valeria Paredes RD, LD Learner(s): pt and Barriers: none Cultural/Language Modifications: none Readiness: acceptance Method: discussion, handout Topics: High calorie, high protein diet, T2DM MNT Understanding/Compliance: verbalized understanding, anticipate fair compliance
[2019-04-21] MEDS ORDERED: PROPOFOL IV EMULSION 10 MG/ML 20 ML VIAL ONE (15:07)
--- NOTE | 2019-04-21 16:40 | NUR ---
ORDER RECEIVED FOR SNF. MET W THE PT AND AT THE BEDSIDE. DISCUSSED CHOICE. PROVIDED SENIOR RESOURCE GUIDE W SNF/REHAB TAGGED. STATES SHE WILL LOOK THROUGH THE BOOK. ENCOURAGED TO GO TO SE FACILITIES SHE WAS INTERESTED. STATES SHE SELDOM LEAVES HER ALONE. STATES SHE WILL LOOK THEM UP ON HER PHONE. INFORMED HER WE HAVE CM ON THE WEEKEND IF SHE DECIDES. DISCUSSED THAT WE WILL NEED A CHOICE LETTER SIGNED BEFORE SUBMITTING THE PT'S PAPERWORK. STATES THE PT IS NOT READY YET, BUT WILL NEED REHAB WHEN DC'D. STATES THEY LIVE IN A 3 [address]ORY APT BUILDING W A NON WORKING ELEVATOR. INQUIRED ABOUT HER RIGHTS. ENCOURAGED TO ASK TO BE ACCOMODATED SINCE THE ELEV DOES NOT WORK. STATES SHE WAS TOLD TO CALL [facility]. CM ALSO ENCOURAGED TO CALL 211 FOR OTHER RESOURCES. VERBALIZED UNDERSTANDING.
[2019-04-21] MEDS ORDERED: PANTOPRAZOLE 40 MG 10ML VIAL IV NR (19:15)
--- NOTE | 2019-04-21 19:20 | NUR ---
Patient received lying in bed. AAO x 3. Patient had no complaints of pain. Respirations even and non labored. Waters catheter draining blood tinged urine. IVF infusing at 125 cc/hr. Safety measures in place. Patient instructed to call for assistance when needed. Call light within reach.
[2019-04-21] MEDS: SIMVASTATIN 20 MG TAB PO SCH (21:00)
[2019-04-21] MEDS: VANCOMYCIN 1GM/NS 250 ML 250 ML IV SCH (21:00)
[2019-04-22] VITALS (10 sets, daily range): BP systolic 74–106; BP diastolic 47–70
[2019-04-22] MEDS: METOCLOPRAMIDE HCL 10 MG/2ML VIAL IV SCH ×4 (00:55→17:50)
--- NOTE | 2019-04-22 01:20 | Operative Report ---
DATE OF PROCEDURE: 04/21/2019 SURGEON: Ryder Aponte MD PROCEDURES: EGD with biopsies and esophageal dilatation. INDICATIONS FOR EGD: Dysphagia to solids, nausea, vomiting, weight loss. MEDICATIONS: The patient was done under MAC. Please see anesthesiologist's note. PROCEDURE IN DETAIL: With the patient in left lateral decubitus position, a flexible fiberoptic Olympus gastroscope was introduced into the esophagus under direct visualization without any difficulty. There was some patchy erythema noted in distal esophagus. A mild stricture was noted at the GE junction that was dilated to a size 52-Romansh Frost. The scope was then advanced with ease into the stomach and mucosa overlying the antrum and the body revealed some patchy erythema and [id number] edema and biopsies were obtained and sent to stain for H. pylori. Pylorus was intubated with ease and the scope was advanced all the way to the second portion of the duodenum. The scope was then withdrawn slowly and biopsies were obtained from the proximal second portion as well as the duodenal bulb to rule out sprue. The scope was then withdrawn back into the stomach and retroflexed mucosa overlying the fundus and the cardia appeared to be within normal limits. The scope was then straightened out. It was subsequently withdrawn. The patient tolerated the procedure well. IMPRESSION: 1. Esophageal stricture, GE junction, dilated to size 52-Romansh Frost. 2. Gastritis, biopsied. Biopsies sent to stain for Helicobacter pylori. 3. Rule out sprue. PLAN: Follow up histology. Initiate Protonix 40 mg one p.o. a.c. b.i.d. Ryder Aponte MD [facility] /[id number] cc: Claudio Zhao MD
[2019-04-22] MEDS: KETOROLAC TROMETHAMINE 30 MG/ML VIAL IV PRN (03:07)
[2019-04-22] MEDS: ACETAMINOPHEN 325 MG TAB PO PRN (05:28)
[2019-04-22] MEDS: SODIUM CHLORIDE 0.9% 1000ML 1,000 ML IV SCH ×3 (05:41→22:07)
[2019-04-22] MEDS ORDERED: PANTOPRAZOLE 40 MG 10ML VIAL IV SCH ×2 (06:00→06:30)
--- NOTE | 2019-04-22 07:00 | NUR ---
The pt. was received in bed and denies pain pr discomfort at this time.
[2019-04-22] MEDS: INSULIN LISPRO 100 UNIT/1 ML 3ML VIAL SQ SCH ×6 (07:30→21:00)
[2019-04-22 07:43] LABS: BASOPHILS % 0.2 % (0.0-1.0); EOSINOPHILS # (AUTO) 0.1 (0.0-0.4); EOSINOPHILS % 0.5 % (0.0-6.0); HEMATOCRIT 26.4 % (38.2-49.6); HEMOGLOBIN 8.1 g/dL (14.0-18.0); LYMPHOCYTES # (AUTO) 1.6 (1.0-3.2); LYMPHOCYTES % 8.9 % (18.0-39.1); MEAN CORPUSCULAR HEMOGLOBIN 26.7 pg (28-32); MEAN CORPUSCULAR HGB CONC 30.7 g/dL (31-35); MEAN CORPUSCULAR VOLUME 87.1 fL (81-99); MONOCYTES # (AUTO) 0.8 (0.2-0.8); MONOCYTES % 4.8 % (4.4-11.3); NEUTROPHILS # (AUTO) 14.8 (2.1-6.9); NEUTROPHILS % 84.9 % (38.7-80.0); PLATELET COUNT 194 x10e3/uL (140-360); RED BLOOD COUNT 3.03 x10e6/uL (4.3-5.7); RED CELL DISTRIBUTION WIDTH 14.5 % (11.7-14.4)
[2019-04-22] MEDS: PANTOPRAZOLE 40 MG 10ML VIAL IV SCH ×2 (08:00→21:26)
[2019-04-22 08:04] LABS: ANION GAP 10.1 mmol/L (8-16); BLOOD UREA NITROGEN 21 mg/dL (7-26); BUN/CREATININE RATIO 21 (6-25); CALCIUM 7.6 mg/dL (8.4-10.2); CARBON DIOXIDE 20 mmol/L (22-29); CHLORIDE 110 mmol/L (98-107); CREATININE, SERUM 1.01 mg/dL (0.72-1.25); EST GLOMERULAR FILTRATION RATE > 60 ML/MIN (60-); GLUCOSE 184 mg/dL (74-118); POTASSIUM 4.1 mmol/L (3.5-5.1); SODIUM 136 mmol/L (136-145)
[2019-04-22] MEDS: METOPROLOL TARTRATE 25 MG TAB PO SCH ×2 (09:00→17:00)
[2019-04-22] MEDS: LIDOCAINE 4% PATCH TP SCH (10:18)
[2019-04-22] MEDS: GABAPENTIN 300 MG CAP PO SCH ×3 (10:18→22:02)
[2019-04-22] MEDS: MIDODRINE HCL 5 MG TABLET PO SCH ×3 (10:18→17:31)
--- NOTE | 2019-04-22 15:00 | NUR ---
PT placed the pt. in the chair and advised him to sit up for 30 minutes. After 5 minutes the pt. called to report that if we didn't put him back in bed he was going to fall on the floor.
[2019-04-22 17:22] LABS: HEMATOCRIT 29.5 % (38.2-49.6); HEMOGLOBIN 9.2 g/dL (14.0-18.0); MEAN CORPUSCULAR HEMOGLOBIN 26.7 pg (28-32); MEAN CORPUSCULAR HGB CONC 31.2 g/dL (31-35); MEAN CORPUSCULAR VOLUME 85.8 fL (81-99); PLATELET COUNT 278 x10e3/uL (140-360); RED BLOOD COUNT 3.44 x10e6/uL (4.3-5.7); RED CELL DISTRIBUTION WIDTH 14.6 % (11.7-14.4)
--- NOTE | 2019-04-22 18:38 | Consultation ---
DATE OF CONSULTATION: 04/22/2019 REASON FOR CONSULTATION: UTI with MRSA. HISTORY OF PRESENT ILLNESS: This patient, who is a 58-year-old white male, history of diabetes mellitus, history of neuropathy, uses a cane after necrotizing soft tissue infection of his foot. He has been sick for a week and not feeling well, weak in general. The patient had low fever. He was admitted. Urine culture showing MRSA, so I was asked to see him. His at the bedside provide the history. His white count was 17.48. His hemoglobin of 8.1. Sodium 146, potassium 4.1 with a creatinine of 1.1. The patient was currently on insulin, Neurontin, and vancomycin. PAST MEDICAL HISTORY: As above. PAST SURGICAL HISTORY: As above, foot surgery and leg surgery. ALLERGIES: CODEINE. SOCIAL HISTORY: There is no smoking, drug abuse, or alcohol abuse. FAMILY HISTORY: Significant for diabetes mellitus. REVIEW OF SYSTEMS: GENERAL: He is just not feeling well. HEENT: Negative. PULMONARY: Negative. CARDIAC: Negative. PHYSICAL EXAMINATION: GENERAL: He is currently alert and oriented. Does not seem to be in acute distress. VITAL SIGNS: Stable, currently afebrile. HEENT: He is not icteric. NECK: Supple. CHEST: Clear. HEART: S1 and S2. No S3, S4, or murmur. ABDOMEN: Soft. IMPRESSION: 1. Urinary tract infection with methicillin-resistant Staphylococcus aureus. We will get the blood cultures and he is on vancomycin. I will obtain trough. 2. Leukocytosis. Recheck CBC with differential. 3. Check amylase and lipase. 4. We will change the vancomycin to 1 g q.12 hours in the meantime until we get further information. 5. We will follow with you. MD SHAQUILLE Vargas/TESSIE /[id number]
--- NOTE | 2019-04-22 19:59 | NUR ---
RECEIVED PT IN BED AOX2T IS BEDBOUND .PT HAS F/C CATHETER DENIES PAIN .CALL LIGHT WITH IN REACH .CONTINUE TO MONITOR
[2019-04-22] MEDS: VANCOMYCIN 1GM/NS 250 ML 250 ML IV SCH (21:26)
[2019-04-22] MEDS: SIMVASTATIN 20 MG TAB PO SCH (22:02)
[2019-04-23] VITALS (8 sets, daily range): BP systolic 85–125; BP diastolic 51–72
[2019-04-23] MEDS: TRAMADOL HCL 50 MG TAB PO PRN ×2 (04:44→11:28)
[2019-04-23] MEDS: SODIUM CHLORIDE 0.9% 1000ML 1,000 ML IV SCH ×3 (06:19→21:41)
[2019-04-23] MEDS: METOCLOPRAMIDE HCL 10 MG/2ML VIAL IV SCH ×5 (06:19→23:58)
--- NOTE | 2019-04-23 06:39 | NUR ---
PT C/O PAIN AND GIVEN ORDERED PAIN MEDICATION .CALL LIGHT WITH IN REACH .CONTINUE TO MONITOR
--- NOTE | 2019-04-23 07:05 | NUR ---
BEDSIDE REPORT GIVEN TO THE ONCOMING NURSE
[2019-04-23 07:06] LABS: BASOPHILS % 0.2 % (0.0-1.0); EOSINOPHILS # (AUTO) 0.1 (0.0-0.4); EOSINOPHILS % 0.4 % (0.0-6.0); HEMATOCRIT 25.1 % (38.2-49.6); HEMOGLOBIN 7.9 g/dL (14.0-18.0); LYMPHOCYTES # (AUTO) 2.2 (1.0-3.2); LYMPHOCYTES % 12.4 % (18.0-39.1); MEAN CORPUSCULAR HEMOGLOBIN 27.1 pg (28-32); MEAN CORPUSCULAR HGB CONC 31.5 g/dL (31-35); MEAN CORPUSCULAR VOLUME 86.3 fL (81-99); MONOCYTES # (AUTO) 0.9 (0.2-0.8); MONOCYTES % 5.3 % (4.4-11.3); NEUTROPHILS # (AUTO) 14.2 (2.1-6.9); NEUTROPHILS % 80.8 % (38.7-80.0); PLATELET COUNT 176 x10e3/uL (140-360); RED BLOOD COUNT 2.91 x10e6/uL (4.3-5.7); RED CELL DISTRIBUTION WIDTH 14.6 % (11.7-14.4)
--- NOTE | 2019-04-23 07:10 | NUR ---
bedside report received. pt is sleeping, no s/s of distress. call light within reach and bed safety implemented. family member at the bedside.
[2019-04-23] MEDS: INSULIN LISPRO 100 UNIT/1 ML 3ML VIAL SQ SCH ×6 (07:30→21:00)
[2019-04-23 07:31] LABS: BLOOD UREA NITROGEN 19 mg/dL (7-26); BUN/CREATININE RATIO 22 (6-25); CALCIUM 7.2 mg/dL (8.4-10.2); CARBON DIOXIDE 20 mmol/L (22-29); CHLORIDE 114 mmol/L (98-107); CREATININE, SERUM 0.86 mg/dL (0.72-1.25); EST GLOMERULAR FILTRATION RATE > 60 ML/MIN (60-); GLUCOSE 123 mg/dL (74-118); SODIUM 137 mmol/L (136-145)
[2019-04-23] MEDS: METOPROLOL TARTRATE 25 MG TAB PO SCH ×2 (08:16→17:00)
[2019-04-23] MEDS: MIDODRINE HCL 5 MG TABLET PO SCH ×3 (08:16→18:10)
[2019-04-23] MEDS: GABAPENTIN 300 MG CAP PO SCH ×3 (08:16→20:41)
[2019-04-23] MEDS: PANTOPRAZOLE 40 MG 10ML VIAL IV SCH ×2 (08:16→20:37)
[2019-04-23] MEDS: LIDOCAINE 4% PATCH TP SCH (08:22)
[2019-04-23 11:11] LABS: LYMPHOCYTES % (MANUAL) 11 % (19-48); NEUTROPHILS % (MANUAL) 85 % (40-74)
[2019-04-23 11:12] LABS: MONOCYTES % (MANUAL) 4 % (3.4-9.0)
--- NOTE | 2019-04-23 12:36 | NUR ---
Educated on IMM letter. Verbalized understanding and signed. Copy to transition folder at bedside, original placed in chart
[2019-04-23] MEDS: ASCORBIC ACID 500 MG TAB PO SCH (18:10)
--- NOTE | 2019-04-23 19:55 | NUR ---
RECEIVED PT IN BED AOX3 .F/C DRAINING YELLOW URINE .DENIES PAIN .CALL LIGHT WITH IN REACH .CONTINUE TO MONITOR
[2019-04-23] MEDS: VANCOMYCIN 1GM/NS 250 ML 250 ML IV SCH (20:41)
[2019-04-23] MEDS: SIMVASTATIN 20 MG TAB PO SCH (20:41)
[2019-04-23] MEDS: ACETAMINOPHEN 325 MG TAB PO PRN (20:42)
[2019-04-24] VITALS (7 sets, daily range): BP systolic 95–113; BP diastolic 52–69
[2019-04-24 06:31] LABS: BASOPHILS % 0.3 % (0.0-1.0); EOSINOPHILS # (AUTO) 0.1 (0.0-0.4); EOSINOPHILS % 0.9 % (0.0-6.0); HEMATOCRIT 24.3 % (38.2-49.6); HEMOGLOBIN 7.1 g/dL (14.0-18.0); LYMPHOCYTES # (AUTO) 2.3 (1.0-3.2); LYMPHOCYTES % 17.5 % (18.0-39.1); MEAN CORPUSCULAR HEMOGLOBIN 27.4 pg (28-32); MEAN CORPUSCULAR HGB CONC 29.2 g/dL (31-35); MEAN CORPUSCULAR VOLUME 93.8 fL (81-99); MONOCYTES # (AUTO) 0.7 (0.2-0.8); MONOCYTES % 5.3 % (4.4-11.3); NEUTROPHILS # (AUTO) 9.9 (2.1-6.9); NEUTROPHILS % 75.3 % (38.7-80.0); PLATELET COUNT 158 x10e3/uL (140-360); RED BLOOD COUNT 2.59 x10e6/uL (4.3-5.7); RED CELL DISTRIBUTION WIDTH 14.9 % (11.7-14.4)
--- NOTE | 2019-04-24 06:37 | NUR ---
PT RESTED DURING THE NIGHT .DENIES PAIN IRRIGATED THE F/C.CALL LIGHT WITH IN REACH .CONTINUE TO MONITOR
[2019-04-24] MEDS: SODIUM CHLORIDE 0.9% 1000ML 1,000 ML IV SCH ×3 (06:39→20:18)
[2019-04-24] MEDS: METOCLOPRAMIDE HCL 10 MG/2ML VIAL IV SCH ×3 (06:39→18:00)
--- NOTE | 2019-04-24 07:00 | NUR ---
received bedside report. pt is sleeping, no s/s of distress. call light within reach and bed safety in place. is at the bedside
--- NOTE | 2019-04-24 07:10 | NUR ---
BEDSIDE REPORT GIVEN TO THE ONCOMING NURSE
[2019-04-24 07:27] LABS: ANION GAP 8.1 mmol/L (8-16); BLOOD UREA NITROGEN 16 mg/dL (7-26); BUN/CREATININE RATIO 18 (6-25); CALCIUM 7.1 mg/dL (8.4-10.2); CARBON DIOXIDE 18 mmol/L (22-29); CHLORIDE 114 mmol/L (98-107); CREATININE, SERUM 0.88 mg/dL (0.72-1.25); EST GLOMERULAR FILTRATION RATE > 60 ML/MIN (60-); GLUCOSE 137 mg/dL (74-118); MAGNESIUM 1.7 MG/DL (1.3-2.1); PHOSPHORUS 3.2 MG/DL (2.3-4.7); POTASSIUM 4.1 mmol/L (3.5-5.1); SODIUM 136 mmol/L (136-145)
[2019-04-24] MEDS: METOPROLOL TARTRATE 25 MG TAB PO SCH ×2 (07:52→17:00)
[2019-04-24] MEDS: INSULIN LISPRO 100 UNIT/1 ML 3ML VIAL SQ SCH ×6 (08:00→21:35)
[2019-04-24] MEDS: PANTOPRAZOLE 40 MG 10ML VIAL IV SCH ×2 (08:38→20:18)
[2019-04-24] MEDS: LIDOCAINE 4% PATCH TP SCH (08:42)
[2019-04-24] MEDS: MIDODRINE HCL 5 MG TABLET PO SCH ×3 (08:42→17:45)
[2019-04-24] MEDS: ASCORBIC ACID 500 MG TAB PO SCH ×2 (08:42→17:45)
[2019-04-24] MEDS: GABAPENTIN 300 MG CAP PO SCH ×3 (08:42→20:18)
[2019-04-24 09:10] LABS: HYPOCHROMASIA MODERATE; RBC MORPHOLOGY COMMENT ABNORMAL
[2019-04-24] MEDS ORDERED: FUROSEMIDE INJ 10 MG/ML 2 ML VIAL IV PRN (10:30)
--- NOTE | 2019-04-24 11:27 | NUR ---
SIGNED CHOICE FOR [facility], WAS TOLD BY IMPLEMENTATION PROJECT COORDINATOR ULISES STILL NEEDS TWO UNITS AND A MBS. WILL NOT BE READY FOR DISCHARGE TODAY. FAXED CLINICALS AND PASRR TO FACILITY AND COMPLETED RTF.
[2019-04-24] MEDS ORDERED: ONDANSETRON HCL 4 MG ORAL DISINTEGRATING TAB PO PRN (11:30)
[2019-04-24] MEDS ORDERED: SODIUM CHLORIDE 0.9% 250ML 250 ML IV ONE (11:50)
[2019-04-24] MEDS: TRAMADOL HCL 50 MG TAB PO PRN (12:21)
--- NOTE | 2019-04-24 14:43 | NUR ---
ST Note: Attempted to complete Modified Barium Swallow study. Pt declined, asked to do it tomorrow. Will f/u tomorrow.
--- NOTE | 2019-04-24 15:15 | NUR ---
HALFWAY FACILITY DISCHARGE INFORMATION PATIENT HAS BEEN ACCEPTED TO: [facility] NAME: [facility] ADDRESS:[id number] [facility] ACCEPTING ENGRAVER APPRENTICE DECORATIVE:LANEY LEONG MD: BEN ROOM:200 NURSE CALL REPORT TO: [phone] IMM SIGNED AND OBTAINED (if applicable): ON WEDNESDAY THE FOLLOWING DOCUMENTS MUST ACCOMPANY PATIENT FOR TRANSFER: COPIED CHART: PACKET
--- NOTE | 2019-04-24 17:52 | Diagnostic Imaging Report ---
EXAMINATION: CHEST X-RAY LINE PLACEMENT COMPARISON: Chest x-ray 04/18/2019, abdominal CT 04/18/2019 INDICATION: ^PICC line placed ^[id number] ^1727 DISCUSSION: Frontal view of the chest obtained at 1736 hours. HEART AND MEDIASTINUM: The heart is normal in size. The aorta is tortuous LINES: Right PICC line terminates in the SVC without pneumothorax. LUNGS: Low lung volumes and bibasilar airspace opacities, new. No interstitial edema. PLEURA: No large effusions. No pneumothorax. BONES AND SOFT TISSUES: No focal osseous lesion. The soft tissues are normal. IMPRESSION: Right PICC line terminates in the SVC without pneumothorax. Basilar airspace opacities may represent atelectasis, infiltrates, or contusions if there is a history of trauma. Signed by: Dr. Elliott Pickering MD on 04/24/2019 5:50 PM
--- NOTE | 2019-04-24 19:50 | NUR ---
Spoke with Cynthia Her THREAD CUTTER regarding clarification of order for lasix. Per report patient to lasix after each unit and order is after each until PRN SOB. Calling for clarification. Cynthia to call Cortes to return call since he wrote order. Awaiting call back.
[2019-04-24] MEDS: ACETAMINOPHEN 325 MG TAB PO PRN (20:13)
[2019-04-24] MEDS: SIMVASTATIN 20 MG TAB PO SCH (20:18)
[2019-04-24] MEDS: VANCOMYCIN 1GM/NS 250 ML 250 ML IV SCH (20:18)
--- NOTE | 2019-04-24 20:45 | NUR ---
Cortes Woodard SKILLED NURSING CASE MANAGER retuned call, order clarified : lasix 20 mg IVP PRN after each unit if SOB.
[2019-04-24] MEDS ORDERED: SODIUM CHLORIDE 0.9% 250ML 500 ML ONE (21:04)
--- NOTE | 2019-04-24 21:20 | NUR ---
2108 Blood picked up, 2114 Immediate v/s before blood obtained : BP 95/55, HR 103, 98% RA, 18 RR, 100.4 orally. 2117 Cortes notified of temp 100.4, tylenol given at 2012 and temp was 99.4. Orders to return blood and hold transfusion until temp back in normal range. Continue to check temp and try to transfuse blood tonight. 2119 Blood returned to blood bank, will continue to monitor closely.
[2019-04-25] VITALS (7 sets, daily range): BP systolic 91–109; BP diastolic 55–67
[2019-04-25] MEDS: METOCLOPRAMIDE HCL 10 MG/2ML VIAL IV SCH ×4 (00:09→17:23)
--- NOTE | 2019-04-25 00:15 | NUR ---
V/S obtained BP 102/66, HR 100, RR 18, 02 sat 96% RA, temp 100.6 orally. Patient updated on POC and blood remains on hold until temp decreases. Will continue to monitor.
[2019-04-25] MEDS: ACETAMINOPHEN 325 MG TAB PO PRN (02:41)
[2019-04-25] MEDS: SODIUM CHLORIDE 0.9% 1000ML 1,000 ML IV SCH ×2 (06:11→15:30)
--- NOTE | 2019-04-25 06:50 | NUR ---
First unit of PRBC completed. No reactions noted. Tolerated well.
--- NOTE | 2019-04-25 07:00 | NUR ---
BEDSIDE SHIFT REPORT RECEIVED FROM THE LASER TECHNICIAN RN. EDUCATED PT ABOUT FALL PRECAUTIONS. PT VERBALIZED UNDERSTANDING. CALL LIGHT WITH IN EASY REACH. INSTRUCTED PT TO USE CALL LIGHT FOR ALL THE NEEDS. BED IS LOW AND LOCKED. SIDE RAILS X2.PT AT BEDSIDE. 2 UNITS OF BLOOD TRANSFUSION ORDER. 1 UNIT GIVEN PER THE REPORT. PT DENIES NEEDS AT THIS TIME.
--- NOTE | 2019-04-25 07:10 | NUR ---
Bedside report and rounds completed with oncoming nurse. Patient in bed with call light within reach. No issues or concerns noted.
[2019-04-25 07:24] LABS: BASOPHILS % 0.3 % (0.0-1.0); EOSINOPHILS # (AUTO) 0.3 (0.0-0.4); EOSINOPHILS % 2.7 % (0.0-6.0); HEMATOCRIT 24.6 % (38.2-49.6); HEMOGLOBIN 7.9 g/dL (14.0-18.0); LYMPHOCYTES # (AUTO) 2.2 (1.0-3.2); LYMPHOCYTES % 20.8 % (18.0-39.1); MEAN CORPUSCULAR HEMOGLOBIN 27.3 pg (28-32); MEAN CORPUSCULAR HGB CONC 32.1 g/dL (31-35); MEAN CORPUSCULAR VOLUME 85.1 fL (81-99); MONOCYTES # (AUTO) 0.7 (0.2-0.8); MONOCYTES % 6.6 % (4.4-11.3); NEUTROPHILS # (AUTO) 7.3 (2.1-6.9); NEUTROPHILS % 68.9 % (38.7-80.0); PLATELET COUNT 187 x10e3/uL (140-360); RED BLOOD COUNT 2.89 x10e6/uL (4.3-5.7); RED CELL DISTRIBUTION WIDTH 14.7 % (11.7-14.4); RETICULOCYTE % 1.7 % (0.8-2.2)
--- NOTE | 2019-04-25 08:00 | NUR ---
MBS EVAL AT BEDSIDE.
--- NOTE | 2019-04-25 08:00 | NUR ---
HOWARD CARE PERFORMED.
[2019-04-25 08:20] LABS: ANION GAP 7.9 mmol/L (8-16); BLOOD UREA NITROGEN 15 mg/dL (7-26); BUN/CREATININE RATIO 18 (6-25); CARBON DIOXIDE 19 mmol/L (22-29); CHLORIDE 114 mmol/L (98-107); CREATININE, SERUM 0.83 mg/dL (0.72-1.25); EST GLOMERULAR FILTRATION RATE > 60 ML/MIN (60-); GLUCOSE 130 mg/dL (74-118); POTASSIUM 3.9 mmol/L (3.5-5.1); SODIUM 137 mmol/L (136-145)
[2019-04-25] MEDS: MIDODRINE HCL 5 MG TABLET PO SCH ×3 (08:30→17:23)
[2019-04-25] MEDS: INSULIN LISPRO 100 UNIT/1 ML 3ML VIAL SQ SCH ×6 (08:30→20:38)
[2019-04-25] MEDS: PANTOPRAZOLE 40 MG 10ML VIAL IV SCH ×2 (09:00→20:23)
[2019-04-25] MEDS: METOPROLOL TARTRATE 25 MG TAB PO SCH ×2 (09:00→17:23)
--- NOTE | 2019-04-25 09:30 | NUR ---
OKAY TO SWALLOW MEDS PER THE MBS EVAL.
[2019-04-25] MEDS: ASCORBIC ACID 500 MG TAB PO SCH ×2 (09:45→16:59)
[2019-04-25] MEDS: GABAPENTIN 300 MG CAP PO SCH ×3 (09:45→20:23)
[2019-04-25] MEDS: LIDOCAINE 4% PATCH TP SCH (09:46)
[2019-04-25 10:09] LABS: IRON 29 ug/dL (65-175); TRANSFERRIN < 70 mg/dL (174-364)
--- NOTE | 2019-04-25 11:00 | Diagnostic Imaging Report ---
EXAM: MODIFIED BA. SWALLOW DATE: 04/25/2019 12:00 AM INDICATION: Dehydration COMPARISON: None Fluoroscopy Time: 13.1 min. Reference Air Kerma (Ka, r): 2.3 mGy. FINDINGS/IMPRESSION: Modified barium swallow was performed by the speech pathology department. The radiologist was not present for the examination. Provided images demonstrate no evidence for subglottic tracheal aspiration. Please refer to speech pathology report for further details. Signed by: Dr. Isrrael Garduno MD on 04/25/2019 10:57 AM
[2019-04-25 11:03] LABS: FERRITIN 384.26 ng/mL (21.81-274.66)
--- NOTE | 2019-04-25 11:05 | NUR ---
WENT TO LAB TO MARKET DEVELOPMENT TRAINER SECOND UNIT OF BLOOD. NOT READY, WILL CALL BACK PER THE LAB.
[2019-04-25] MEDS ORDERED: SODIUM CHLORIDE 0.9% 250ML 250 ML ONE (12:35)
--- NOTE | 2019-04-25 15:30 | NUR ---
BLOOD TRANSFUSION COMPLETED. PT TOLERATED WELL. NO DISTRESS NOTED. INFORMED THE SAME TO ULISES KAY AND CASE MANAGEMENT. NO D/C YET PER ULISES KAY.
--- NOTE | 2019-04-25 17:11 | NUR ---
MELISA MONTGOMERY AND INFORMED PT VITAL SIGNS 134/79 HR 95. ADMINISTER MIDODRINE AND METOPROLOL. NO LASIX AFTER BLOOD TRANSFUSION.
[2019-04-25 17:34] LABS: BASOPHILS # (AUTO) 0.1 (0.0-0.1); BASOPHILS % 0.5 % (0.0-1.0); EOSINOPHILS # (AUTO) 0.4 (0.0-0.4); EOSINOPHILS % 2.7 % (0.0-6.0); HEMATOCRIT 31.3 % (38.2-49.6); LYMPHOCYTES % 15.7 % (18.0-39.1); MEAN CORPUSCULAR HEMOGLOBIN 27.1 pg (28-32); MEAN CORPUSCULAR HGB CONC 31.9 g/dL (31-35); MEAN CORPUSCULAR VOLUME 84.8 fL (81-99); MONOCYTES # (AUTO) 0.6 (0.2-0.8); MONOCYTES % 4.7 % (4.4-11.3); NEUTROPHILS # (AUTO) 9.9 (2.1-6.9); NEUTROPHILS % 75.6 % (38.7-80.0); PLATELET COUNT 238 x10e3/uL (140-360); RED BLOOD COUNT 3.69 x10e6/uL (4.3-5.7); RED CELL DISTRIBUTION WIDTH 14.8 % (11.7-14.4)
--- NOTE | 2019-04-25 18:30 | NUR ---
ULISES KAY AT BEDSIDE.
--- NOTE | 2019-04-25 19:00 | NUR ---
BEDSIDE SHIFT REPORT GIVEN TO THE BUSINESS DATA ANALYST RN. PT DENIED FURTHER NEEDS.
[2019-04-25] MEDS ORDERED: PROTONIX40 MG PO (19:12)
[2019-04-25] MEDS ORDERED: Insulin Lispro SQ (19:12)
[2019-04-25] MEDS ORDERED: ACETAMINOPHEN325 M1 PO (19:12)
[2019-04-25] MEDS ORDERED: DEXTROSE 50%-WA50 M1 IV (19:12)
[2019-04-25] MEDS ORDERED: Ondansetron Oral Disintegratin PO (19:12)
[2019-04-25] MEDS ORDERED: ASCORBIC ACID500 MG PO (19:12)
[2019-04-25] MEDS ORDERED: ULTRAM 50MG50 MG PO (19:12)
[2019-04-25] MEDS ORDERED: Lidocaine Patch TP (19:12)
[2019-04-25] MEDS ORDERED: METOCLOPRAMIDE10 MG PO (19:14)
[2019-04-25] MEDS ORDERED: DOXYCYCLINE HY100 MG PO (19:15)
--- NOTE | 2019-04-25 19:40 | NUR ---
Report called to Jorge BELLA at [facility] for room 200.
--- NOTE | 2019-04-25 19:45 | NUR ---
Spoke with Dutches at [facility]. Ambulance ETA 30 minutes. Updated patient and family.
--- NOTE | 2019-04-25 20:20 | NUR ---
Cortes KAY on unit updated of current v/s and elevated temp 101.1. 108/62, 87, 17, 99 RA, FSBS 89. Give tylenol po x1 now and okay to send to facility, order cxr on arrival to facility and daily CBC.
[2019-04-25] MEDS: SIMVASTATIN 20 MG TAB PO SCH (20:23)
[2019-04-25] MEDS: VANCOMYCIN 1GM/NS 250 ML 250 ML IV SCH (20:23)
--- NOTE | 2019-04-25 20:28 | NUR ---
Called and updated Jorge at [facility] regarding elevated temp 101.1 and tylenol given and speaking to Cortes LANGUAGE SPECIALIST for Dr Zhao regarding CXR on arrival to facility and daily CBC.
--- NOTE | 2019-04-26 07:35 | Discharge Summary ---
CHIEF COMPLAINT: Dysuria, poor appetite, and frequent falls. HISTORY OF PRESENT ILLNESS: Mr. Davis is a 58-year-old male, who admitted with complaints of dysuria, poor appetite, nausea and vomiting for a couple days prior to admission. also complained of intermittent altered mental status and trouble swallowing. Reported that he had fallen multiple times over the last couple of weeks. The patient agitated on admission. PAST MEDICAL HISTORY: Type 2 diabetes mellitus, hyperlipidemia, tachycardia, and gastroesophageal reflux disease. PAST SURGICAL HISTORY: Left leg surgery. FAMILY HISTORY: Diabetes mellitus. SOCIAL HISTORY: Smokes marijuana occasionally. ALLERGIES: CODEINE. ADMITTING DIAGNOSES: 1. Urinary tract infection with sepsis. 2. Left 11th rib fracture status post fall. 3. Type 2 diabetes mellitus. 4. Tachycardia. DISCHARGE DIAGNOSES: 1. Urinary tract infection with methicillin-resistant staphylococcus aureus with sepsis, present on arrival. 2. Fall at home with 11th left rib fracture. 3. Ambulatory dysfunction. 4. Controlled type 2 diabetes mellitus with diabetic neuropathy. 5. Dysphagia status post EGD, esophageal stricture at gastroesophageal junction, status post esophageal dilation by GI. 6. Dehydration with hypotension. 7. Anemia of chronic illness. 8. Hyperlipidemia. 9. Acute diarrhea. CONSULTING PHYSICIANS: 1. Dr. Lasha Barrett. 2. Dr. Dereje Oneill. 3. Dr. Ryder Aponte with Gastroenterology. The patient was on IV vancomycin for the UTI with MRSA. The patient received physical therapy during his stay. Per discussion with HERNANDEZ Randle with Dr. Barrett and Dr. Barrett will discharge on doxycycline 100 mg p.o. b.i.d. for two weeks. Continue vitamin. He is on lispro b.i.d. and low-dose sliding scale insulin. Gabapentin and Lidoderm for diabetes with diabetic neuropathy. He passed a modified barium swallow today. Continue midodrine for blood pressure. He received 2 units of blood. Waters catheter to remain in place per Urology. Okay to discharge to SNF per Dr. Oneill, Dr. Barrett, and Dr. Zhao. I will send a text to Kaitlin, the nurse practitioner with Dr. Zhao for continuity of care regarding the patient's current condition. Continue GI soft diet. Activity level as tolerated. Follow up with Dr. Oneill and Dr. Barrett. The patient is discharging to [facility]. On admission on April 17, WBC 13.12, hemoglobin 9.6, hematocrit 29.7, platelets 226, glucose 415, sodium 132, BUN 23, creatinine 1.14, GFR greater than 60. Total protein 6.4, albumin 1.9. Influenza was negative. Urine culture showed MRSA on both 04/17 and 04/22 urine culture and sensitivities. He had a PICC line inserted in the right arm on April 23. CT of the abdomen and pelvis done on April 17 showed mildly displaced left lateral 11th rib fracture with adjacent hematoma measuring up to 9.9 cm. A wedge-shaped area of decreased enhancement in the upper pole of the right kidney, likely due to ischemia or contusion. Multiple ill-defined perinephric complex fluid collections, diffuse wall thickening of the antrum and pylorus of the stomach as well as sigmoid colon, marketed bladder wall thickening and enhancement likely due to cystitis. CT of the brain done on April 18 showed no acute abnormalities. Today sodium 137, potassium 3.9, chloride 114, CO2 of 19, BUN 15, creatinine 0.83. EGFR greater than 60. Glucose 130. WBC 10.5, hemoglobin 7.9, hematocrit 24.6, platelets 187. Iron 29, transferrin less than 70, ferritin 384.26, vitamin B12 of 1157, folate is pending. Fingerstick blood glucose levels 182 and 128. Final blood culture results pending. Dictated by Cortes Woodard NP MD NGOZI OrantesP/MODL /[id number]
== END 2019-04-25 21:15 | DRG 872 ==
LOC: ER 15:38 → ERHOLD 21:42 → OBSVTOIN 04-19 13:46 → MED/SURG3 04-19 14:22
PROVIDERS: ADMIT Internal Medicine; ATTEND Internal Medicine
PROC: 0DB78ZX Excision of Stomach, Pylorus, Via Natural or Artificial Opening Endoscopic, Diagnostic (ICD-10-PCS; 2019-04-21)
PROC: 0D748ZZ Dilation of Esophagogastric Junction, Via Natural or Artificial Opening Endoscopic (ICD-10-PCS; principal; 2019-04-21 16:00)
PROC: 02H633Z Insertion of Infusion Device into Right Atrium, Percutaneous Approach (ICD-10-PCS; 2019-04-24)
PROC: 30240N1 Transfusion of Nonautologous Red Blood Cells into Central Vein, Open Approach (ICD-10-PCS; 2019-04-25)
DX: A41.9 Sepsis, unspecified organism (principal); S22.32XA Fracture of one rib, left side, initial encounter for closed fracture; N39.0 Urinary tract infection, site not specified; E87.1 Hypo-osmolality and hyponatremia; E11.9 Type 2 diabetes mellitus without complications; B95.62 Methicillin resistant Staphylococcus aureus infection as the cause of diseases classified elsewhere; E11.40 Type 2 diabetes mellitus with diabetic neuropathy, unspecified; Z79.4 Long term (current) use of insulin; W19.XXXA Unspecified fall, initial encounter; Z91.81 History of falling; R26.9 Unspecified abnormalities of gait and mobility; E86.0 Dehydration; D63.8 Anemia in other chronic diseases classified elsewhere; E78.5 Hyperlipidemia, unspecified; K22.2 Esophageal obstruction
CPT/HCPCS: 36415; 36569; 43239; 70450; 71111; 74177; 74230; 80048; 80053; 80202; 80307; 81001; 82140; 82150; 82550; 82553; 82607; 82728; 82746; 82948; 83036; 83540; 83690; 83735; 83880; 84100; 84443; 84466; 84484; 85007; 85025; 85027; 85045; 85610; 85730; 86850; 86900; 86920; 87040; 87086; 87186; 87400; 88305; 88312; 93005; 96360; 96361; 97139; 99285; G0378; J0696; J1817; J1885; J2270; J2405; J2765; J3370; J7030; J7050; P9016; Q9967

== ENCOUNTER 2019-05-08 12:33 | Inpatient (IN) | payer MEDICARE ==
[~2019-05-08] VITALS: Ht 175.3 cm; Wt 68.5 kg
[~2019-05-08 12:33] MED LIST: ACETAMINOPHEN325 M1 PO; ASCORBIC ACID500 MG PO; DEXTROSE 50%-WA50 M1 IV; DOXYCYCLINE HY100 MG PO; FLOMAX0.4 MG PO; GABAPENTIN600 MG; Insulin Lispro SQ; LEVEMIR FL100 UNIT/1; LOPRESSOR25 MG; Lidocaine Patch TP; METOCLOPRAMIDE10 MG PO; METOPROLOL SUCC25 MG; MIDODRINE HCL2.5 MG PO; NOVOLOG100 UNITS1 SQ; OMEPRAZOLE40 MG PO; Ondansetron Oral Disintegratin PO; PROTONIX40 MG PO; SIMVASTATIN20 MG; ULTRAM 50MG50 MG PO
[2019-05-08] MEDS ORDERED: SODIUM CHLORIDE 0.9% 1000ML 1,000 ML IV STA (12:42)
[2019-05-08 13:25] LABS: BASOPHILS % 0.2 % (0.0-1.0); EOSINOPHILS % 0.1 % (0.0-6.0); HEMATOCRIT 33.7 % (38.2-49.6); HEMOGLOBIN 10.6 g/dL (14.0-18.0); LYMPHOCYTES # (AUTO) 1.8 (1.0-3.2); LYMPHOCYTES % 17.4 % (18.0-39.1); MEAN CORPUSCULAR HEMOGLOBIN 27.7 pg (28-32); MEAN CORPUSCULAR HGB CONC 31.5 g/dL (31-35); MONOCYTES # (AUTO) 0.5 (0.2-0.8); MONOCYTES % 5.3 % (4.4-11.3); NEUTROPHILS # (AUTO) 7.9 (2.1-6.9); NEUTROPHILS % 76.4 % (38.7-80.0); PLATELET COUNT 435 x10e3/uL (140-360); RED BLOOD COUNT 3.83 x10e6/uL (4.3-5.7); RED CELL DISTRIBUTION WIDTH 16.2 % (11.7-14.4)
[2019-05-08] MEDS ORDERED: MORPHINE SULFATE INJ 4 MG/ML INJ 1ML IV STA (13:35)
--- NOTE | 2019-05-08 13:44 | Diagnostic Imaging Report ---
Chest, PA and lateral. History: Fall, chest pain. Comparison: 04/24/2019. Discussion: The cardiomediastinal silhouette and pulmonary vasculature are within normal limits. The lungs are clear without evidence of consolidation or effusion. IMPRESSION: No radiographic evidence of acute cardiopulmonary abnormality. Signed by: Rome Ramos MD on 05/08/2019 1:41 PM
[2019-05-08] MEDS ORDERED: MORPHINE SULFATE INJ 4 MG/ML INJ 1ML ONE (13:45)
[2019-05-08 13:46] LABS: ALANINE AMINOTRANSFERASE 7 IU/L (0-55); ALBUMIN 1.9 g/dL (3.5-5.0); ALBUMIN/GLOBULIN RATIO 0.4 (0.8-2.0); ALKALINE PHOSPHATASE 91 IU/L (40-150); ANION GAP 19.6 mmol/L (8-16); BLOOD UREA NITROGEN 8 mg/dL (7-26); BUN/CREATININE RATIO 10 (6-25); CARBON DIOXIDE 24 mmol/L (22-29); CHLORIDE 98 mmol/L (98-107); CREATININE, SERUM 0.82 mg/dL (0.72-1.25); EST GLOMERULAR FILTRATION RATE > 60 ML/MIN (60-); GLUCOSE 201 mg/dL (74-118); POTASSIUM 3.6 mmol/L (3.5-5.1); SODIUM 138 mmol/L (136-145)
--- NOTE | 2019-05-08 13:50 | Diagnostic Imaging Report ---
Exam: Head CT without contrast History: Trauma, fall Comparison studies: Head CT 04/19/2019 Technique: Axial images were obtained from the skull base to the vertex. Coronal and sagittal images reconstructed from the axial data. Dose modulation, iterative reconstruction, and/or weight based adjustment of the mA/kV was utilized to reduce the radiation dose to as low as reasonably achievable. Radiation dose: Total DLP: 921 mGy*cm. Estimated effective dose: DLP x 0.015 Intravenous contrast: None Findings: Scalp: No abnormalities. Bones: No fractures, blastic or lytic lesions. Brain sulci: Mild to moderate prominent Ventricles: Mild to moderate dilatation. No hydrocephalus. Extra-axial spaces: No masses, no fluid collection. Parenchyma: No mass, acute hemorrhage or acute or chronic cortical insults. She subtle hypodensities in the supratentorial white matter are nonspecific but are most compatible with chronic microvascular ischemic changes. Sellar/suprasellar region: No abnormalities. Craniocervical junction: Patent foramen magnum. No Chiari one malformation. Incidental findings: Atherosclerotic calcifications in the carotid siphons. IMPRESSION: No acute abnormalities. Chronic findings: 1. Mild to moderate generalized parenchymal volume loss. 2. Mild supratentorial microvascular ischemic changes. Signed by: Dr. Jose Connors M.D. on 05/08/2019 1:47 PM
[2019-05-08] MEDS ORDERED: ONDANSETRON HCL INJ 2MG/ML 2ML 2 MG/ML VIAL IV PRN (14:15)
[2019-05-08 14:25] LABS: BILIRUBIN,URINE 1+ (NEGATIVE); CLARITY,URINE SL CLOUDY (CLEAR); COLOR,URINE YELLOW (YELLOW); KETONES,URINE 3+ (NEGATIVE); LEUKOCYTE ESTERASE ,URINE TRACE (NEGATIVE); NITRITE,URINE NEGATIVE (NEGATIVE); PROTEIN,URINE DIPSTICK 1+ (NEGATIVE); URINE UROBILINOGEN 0.2 mg/dL (0.2 - 1)
--- NOTE | 2019-05-08 14:33 | NUR ---
Pt lying on L side, reports after applying barrier cream to sacral region and perineal area, he has reduced pain. Allevyn also applied. Pt reports reduced pain also after morphine administration.
[2019-05-08] MEDS: PIPER-TAZ 3.375 GM 50 ML IV SCH ×2 (14:39→22:07)
[2019-05-08 14:46] LABS: EPITHELIAL CELLS,URINE FEW /LPF; RBC,URINE 0-5 /HPF (0-5)
[2019-05-08 16:35] LABS: ABG HCO3 21 mmol/L (23-28); ABG PCO2 26 mmHg (41-51); ABG PH 7.51 (7.31-7.41)
--- NOTE | 2019-05-08 17:24 | NUR ---
Nursing report called to Dale ANDUJAR on Med-surg 2. Preparing pt for transport.
--- NOTE | 2019-05-08 18:02 | NUR ---
PT ARRIVED TO ROOM 202 VIA STRETCHER. PT AWAKE, ALERT, ORIENTED, NO SIGNS OF DISTRESS. WILL GIVE REPORT TO MICROMATIC HONE OPERATOR NURSE FOR NEW ADMISSION.
[2019-05-08 18:04] VITALS: BP 98/63
[2019-05-08] MEDS: MORPHINE SULFATE INJ 4 MG/ML INJ 1ML IV PRN ×2 (18:51→23:04)
[2019-05-08] MEDS ORDERED: DEXTROSE 50% SYRINGE 50 ML IV PRN (19:00)
[2019-05-08] MEDS ORDERED: ONDANSETRON 4 MG PO PRN (19:00)
[2019-05-08] MEDS ORDERED: ACETAMINOPHEN 325 MG TAB PO PRN (19:00)
--- NOTE | 2019-05-08 19:20 | NUR ---
RECEIVED PATIENT. PATIENT IS AAOX2, PERIOD OF CONFUSION. RESP EVEN AND UNLABORED. NO ACUTE DISTRESS AT THIS TIME. PATIENT DENIES OF ANY PAIN OR DISCOMFORT AT THIS TIME. HOWARD IN PLACE, NASEEM AND CLEAR URINE NOTED. SACRAL WOUND NOTED, DRESSING NOTED, DRY AND INTACT. CALL LIGHT WITHIN REACH. INSTRUCT PATIENT TO CALL FOR ASSISTANCE. BED LOW/LOCKED. CONTINUE TO MONITOR CLOSELY
[2019-05-08 20:00] VITALS: BP 124/77
--- NOTE | 2019-05-08 20:35 | NUR ---
NOTIFIED SECURITIES ADVISER ABOUT SPECIAL BED
[2019-05-08 21:00] VITALS: BP 124/77
[2019-05-08] MEDS ORDERED: MIDODRINE 2.5 MG TAB PO SCH (21:00)
[2019-05-08] MEDS ORDERED: INSULIN LISPRO SQ SCH (21:00)
[2019-05-08] MEDS: DOXYCYCLINE HYCLATE TABLET 100 MG TAB PO SCH (21:00)
[2019-05-08] MEDS: GABAPENTIN 300 MG CAP PO SCH (21:00)
[2019-05-08] MEDS ORDERED: NON-FORMULARY MEDICATION (Gabapentin 600 MG) SCH (21:00)
[2019-05-08] MEDS: SIMVASTATIN 20 MG TAB PO SCH (21:00)
[2019-05-08] MEDS: INSULIN REGULAR, HUMAN 100 UNIT/1 ML 3ML VIAL SQ SCH (21:50)
[2019-05-08] MEDS: SODIUM CHLORIDE 0.9% 1000ML 1,000 ML IV SCH (22:06)
[2019-05-08 23:06] VITALS: BP 124/77
[2019-05-08] MEDS: METOCLOPRAMIDE HCL 10 MG TAB PO SCH (23:06)
--- NOTE | 2019-05-08 23:10 | NUR ---
SPOKE TO LILLIAN WITH SIZE LUCIA. SPECIALITY BED ORDERED. SPECIALITY AIR MATTRESS HAS X2 SAFETY FLOOR MATS /FRAME/ AIR MATTRESS FOR ALT STAGE3/4 PRESSURE WOUNDS. BATTERY BACK UP IS INCLUDED. CONFIRMATION # [id number]. ALL ABOVE INFORMATION PASSED TO PM NURSE.
[2019-05-09] VITALS (8 sets, daily range): BP systolic 88–117; BP diastolic 61–80
[2019-05-09] MEDS: PIPER-TAZ 3.375 GM 50 ML IV SCH (04:07)
[2019-05-09 05:09] LABS: BASOPHILS # (AUTO) 0.1 (0.0-0.1); BASOPHILS % 0.7 % (0.0-1.0); EOSINOPHILS # (AUTO) 0.2 (0.0-0.4); EOSINOPHILS % 2.1 % (0.0-6.0); HEMOGLOBIN 8.9 g/dL (14.0-18.0); LYMPHOCYTES # (AUTO) 1.5 (1.0-3.2); MEAN CORPUSCULAR HEMOGLOBIN 27.2 pg (28-32); MEAN CORPUSCULAR HGB CONC 30.7 g/dL (31-35); MEAN CORPUSCULAR VOLUME 88.7 fL (81-99); MONOCYTES # (AUTO) 0.5 (0.2-0.8); NEUTROPHILS # (AUTO) 5.4 (2.1-6.9); NEUTROPHILS % 70.5 % (38.7-80.0); PLATELET COUNT 298 x10e3/uL (140-360); RED BLOOD COUNT 3.27 x10e6/uL (4.3-5.7); RED CELL DISTRIBUTION WIDTH 16.2 % (11.7-14.4)
[2019-05-09] MEDS: METOCLOPRAMIDE HCL 10 MG TAB PO SCH ×3 (05:09→18:48)
[2019-05-09] MEDS: MORPHINE SULFATE INJ 4 MG/ML INJ 1ML IV PRN ×4 (05:09→18:40)
[2019-05-09 05:29] LABS: ANION GAP 12.3 mmol/L (8-16); BLOOD UREA NITROGEN 7 mg/dL (7-26); BUN/CREATININE RATIO 9 (6-25); CALCIUM 7.4 mg/dL (8.4-10.2); CARBON DIOXIDE 27 mmol/L (22-29); CHLORIDE 103 mmol/L (98-107); CREATININE, SERUM 0.78 mg/dL (0.72-1.25); EST GLOMERULAR FILTRATION RATE > 60 ML/MIN (60-); GLUCOSE 162 mg/dL (74-118); MAGNESIUM 1.8 MG/DL (1.3-2.1); POTASSIUM 3.3 mmol/L (3.5-5.1); SODIUM 139 mmol/L (136-145)
--- NOTE | 2019-05-09 07:05 | NUR ---
CHANGE OF SHIFT REPORT RECEIVED FROM PM NURSE; PT IN STABLE CONDITION.
[2019-05-09] MEDS: INSULIN REGULAR, HUMAN 100 UNIT/1 ML 3ML VIAL SQ SCH ×4 (07:30→21:58)
[2019-05-09] MEDS: INSULIN LISPRO 100 UNIT/1 ML 3ML VIAL SQ SCH ×2 (07:30→16:30)
[2019-05-09] MEDS: SODIUM CHLORIDE 0.9% 1000ML 1,000 ML IV SCH ×2 (08:20→21:58)
[2019-05-09] MEDS ORDERED: ASCORBIC ACID 500 MG TAB PO SCH (09:00)
[2019-05-09] MEDS ORDERED: NON-FORMULARY MEDICATION ([Lidocaine Patch] 1 EA) TP SCH (09:00)
[2019-05-09] MEDS ORDERED: PANTOPRAZOLE SODIUM 40 MG SUSPDR.PKT PO SCH (09:00)
--- NOTE | 2019-05-09 09:07 | Consultation ---
DATE OF CONSULTATION: 05/09/2019 Pulmonary Critical Care Consultation CHIEF COMPLAINT: Worsening decubitus ulcer and malaise. HISTORY OF PRESENT ILLNESS: The patient is a 58-year-old man. He has a history of diabetes and severe neuropathy. He has ambulatory dysfunction. He required admission to [facility] in early April of this year with a urinary tract infection secondary to MRSA as well as 11th rib fracture after a fall and some dehydration. He was subsequently discharged to shelter facility and now returns with the worsening sacral decubitus ulcer. Apparently, he has been having difficulty ambulating and has spent lots of time in bed. He is not having any fevers. He is not having any chest pain or vomiting. PAST SURGICAL HISTORY: 1. Left leg surgery. 2. Prior EGD with esophageal dilatation. PAST MEDICAL HISTORY: 1. Diabetes. 2. Neuropathy with ambulatory dysfunction. 3. Esophagojejunal stricture that required dilatation. SOCIAL HISTORY: The patient has a prior history of alcoholism. He was a previous smoker. FAMILY HISTORY: His family history is significant for diabetes and alcoholism. ALLERGIES: THE PATIENT HAS AN ALLERGY TO CODEINE. REVIEW OF SYSTEMS: There is no history of fevers or neck pain. He is not having chest pain or difficulty breathing. There is no nausea or vomiting. He does have a worsening decubitus ulcer. He is also complaining of difficulty ambulating. PHYSICAL EXAMINATION: VITAL SIGNS: The patient is afebrile. Blood pressure is 88/61, pulse is 97. HEENT: Shows no facial swelling or erythema. CARDIAC: Reveals regular rate and rhythm with a normal S1 and S2. LUNGS: Auscultation of lungs shows clear breath sounds bilaterally. There is no wheezing. ABDOMEN: Soft, nontender. There is no rebound or guarding. SKIN: There is decubitus ulcer. EXTREMITIES: There is some atrophy in the lower extremities. IMPRESSION: 1. Stage III decubitus ulcer, present on admission. 2. Hypertension. 3. Esophageal stricture with history of dilatation. 4. Diabetic neuropathy with profound weakness. 5. Diabetes. PLAN: 1. Wound care with Wound Care consultation. 2. Continue current antibiotics. The patient will need contact isolation because of prior MRSA. Also need treatment with vancomycin and repeat wound culture. 3. Continue to monitor blood sugars. 4. Replace potassium. 5. Repeat urinary tract culture. MD MINH Alfred/TESSIE /[id number]
[2019-05-09] MEDS: PANTOPRAZOLE SOD 40 MG TABEC PO SCH (09:14)
[2019-05-09] MEDS: TAMSULOSIN HCL 0.4 MG CAP PO SCH (09:15)
[2019-05-09] MEDS: MIDODRINE HCL 5 MG TABLET PO SCH ×3 (09:15→18:45)
[2019-05-09] MEDS: MAGNESIUM OXIDE 400 MG TAB PO SCH ×2 (09:16→18:47)
[2019-05-09] MEDS: METOPROLOL TARTRATE 25 MG TAB PO SCH ×2 (09:16→17:00)
[2019-05-09] MEDS: MULTIVITAMINS/MINERALS TAB PO SCH (09:17)
[2019-05-09] MEDS: GABAPENTIN 300 MG CAP PO SCH ×3 (09:21→21:58)
[2019-05-09] MEDS: OYST-CAL-D 500MG TABLET PO SCH ×2 (09:21→18:47)
[2019-05-09] MEDS: DOXYCYCLINE HYCLATE TABLET 100 MG TAB PO SCH ×2 (09:21→21:58)
[2019-05-09] MEDS: ASCORBIC ACID 500 MG TAB PO SCH ×2 (09:22→18:47)
[2019-05-09] MEDS: ZINC SULFATE 220 MG CAP PO SCH ×2 (09:23→18:47)
[2019-05-09] MEDS: LIDOCAINE 4% PATCH TP SCH (09:25)
[2019-05-09] MEDS ORDERED: ONDANSETRON HCL 4 MG ORAL DISINTEGRATING TAB PO PRN (09:30)
--- NOTE | 2019-05-09 11:29 | Consultation ---
DATE OF CONSULTATION: 05/09/2019 Wound Consultation HISTORY OF PRESENT ILLNESS: A 58-year-old male patient with history of smoking since age 16. Continues to smoke. Has no intention of stopping to smoke, peripheral vascular disease, status post left lower extremities bypass surgery, recently discharged [facility]. The patient is brought for worsening coccygeal pressure ulcer. Also, has an unstageable ulcer to the left heel and an ulcer to the left 2nd toe. The patient is deconditioned and weak. PAST MEDICAL HISTORY: Diabetes mellitus, hypertension, COPD, chronic smoking, peripheral arterial disease, GERD with esophageal stricture. SOCIAL HISTORY: Lifelong smoking. No alcohol use. History of cocaine, meth, marijuana. ALLERGIES: CODEINE. PHYSICAL EXAMINATION: GENERAL: Blood pressure 88/61, pulse of 97, temperature 96.6. HEENT: Normal. NECK: No JVD. LUNGS: Bilaterally diminished. CVS: Normal. ABDOMEN: Soft, nontender. Bowel sounds normal. EXTREMITIES: Lower extremities, no edema. SKIN: The patient has sacrococcygeal area. The patient has stage IV pressure ulcer bone palpable 100% slough measures 1.2 x 0.9 cm x 0.3 cm. Periwound has yeast infection on the scrotum. On the left heel, the patient has a blister with a necrotic area unstageable pressure ulcer. The left 2nd dorsal toe has a small necrotic area from PVD. ASSESSMENT: Stage IV coccyx pressure ulcer, palpable bone, not exposed. Rule out osteomyelitis. Left heel unstageable pressure ulcer, left 2nd toe ulcer, chronic smoking, peripheral arterial disease. PLAN: We will apply Santyl, Hydrogel, Mepilex to the wound, Lotrimin cream to the buttock and scrotal area, Mepilex to the left heel. In view of chronic smoking and diabetes, the patient is high risk for worsening ulcers, offload change position and also A1c 12.7 extremity uncontrolled. Chances of amputation are high due to his noncompliance and PVD. I discussed with the patient extensively about his condition and need to stop smoking. He says he has no intention to stop smoking. Sun Leal MD TG/MODL /[id number]
--- NOTE | 2019-05-09 12:22 | NUR ---
WOUND CARE CONSULT FOR 58 YO MALE HX OF_sacral decubitus LAI 14 ON MODERATE PUP STATUS AND INTERVENTIONS AND ALTERNATING PRESSURE MATTRESS LABS: WBC-7.69 HGB_8.9 GLUCOSE-162 HEMA1C- SKIN ASSESSMENT COMPLETE PATIENT PRESENTS WITH UNSTAGEABLE SACRAL ULCERATION 2CMX1.5CM COVERED WITH YELLOW SLOUGH RECOMMENDATIONS: NURSING TO CONTINUE TO MAINTAIN MODERATE PUP STATUS AND INTERVENTIONS AND ALTERNATING PRESSUREMATTRESS NURSING TO CONTINUE TO ASSIST PATIENT OUT OF BED FOR MEALS AND MUCH TOLERATED NURSING TO CONTINUE TO ASSIST PATIENT NEEDED WITH MEALS AND NUTRITIONAL SUPPLEMENTS TO ENSURE PROPER REQUIREMENTS FOR HEALING NURSING TO CONTINUE TO OFFLOAD FEET AND HEELS NEEDED WITH PILLOW SUSPENSION WHEN IN BED NURSING TO CLEAN UNSTAGEABLE SACRAL ULCERATION WITH NORMAL SALINE DAILY AND APPLY SANTYL OINTMENT AND ALLEVYN FOAM DRESSING Addendum: 05/09/19 at 1226 by Luis E Wyatt RN Amended: Links added.
[2019-05-09] MEDS: VANCOMYCIN 1GM/NS 250 ML 250 ML IV SCH ×2 (13:27→21:58)
--- NOTE | 2019-05-09 14:19 | NUR ---
PT IS FROM [facility]. SPOKE WITH WHOM STATES SHE WANTS HIM TO RETURN WHEN HE IS READY. HE WAS CONFUSED WHEN I SPOKE WITH THE NURSE THIS MORNING. PT IS IN ISOLATION AND NON ESSENTIAL NOT ALLOWED IN ROOM. NURSE REPORTED SHE CONFIRMED WITH ABOUT RETURNING TO [facility] WHEN ABLE TO RETURN.
--- NOTE | 2019-05-09 15:39 | NUR ---
Nutrition Intervention Note RD Recommendation(s) for Physician: - Continue current diet - Recommend Glucerna Shakes TID for adequacy - Recommend Sukhwinder 1 packet BID to promote wound healing - Continue MVI with minerals, Vitamin C, and Zin Sulfate to promote wound healing - BG and insulin management per MD Plan of Care: RD following, monitoring for tolerance and adequacy. ONS, vitamin and mineral rec's. Nutrition reason for involvement: DX: PU on admit RD Assessment 05/08: 58 YOM admitted from SNF for sacral PU, evaluated today per dx. Pt admitted earlier this month, intake remains poor. No wt loss noted. No GI distress. Per RN pt not eating much, but is drinking juices- elevated POC Gluc noted. RD to order Glucerna Shakes. Sukhwinder discussed with RN, to order. Pt discussed during am MDR. Chart reviewed. Will continue to monitor. Principal Problems/Diagnoses: sacral decub ulcer PMH: PVD with lower extremity bypass surgeries, DM, COPD, chronic smoker, GERD, esophageal stricture GI: WDL Skin: unstagable PU to L heel, unstagable/stage III PU to sacrum Labs: 05/08: Na 139, K 3.3, BUN 7, Cr 0.78, Gluc 162 Meds: zinc sulfate, vitamin C, zocor, reglan, humalog, zofran, abx, mag-ox, protonix, MVI with minerals Ht: 69 in Wt: 151 lb BMI: 22.3 kg/m2 IBW: 145 lb Malnutrition Evaluation (05/09/19) The patient meets criteria for mild protein calorie malnutrition at this time. Energy intake: <75% of estimated energy requirements for >7 days Wt loss: none Fat loss: none Muscle loss: Mild, clavicle visible Supporting Evidence: Fluid accumulation: none Functional Status: not assessed Nutrition Prescription (Diet Order): 1800 ADA Estimated Nutritional Needs: 4460-0460 calories/day (22-25 kcal/kg CBW) 68-103 g protein/day (1-1.5 g pro/kg CBW) Diet Adequacy: Not meeting calorie needs, Not meeting protein needs Diet Tolerance: tolerating po Diet Education Needs Assessment: Diet education not indicated at this time. Nutrition Care Level: Moderate Nutrition Diagnosis: Increased Goal: Patient will meet 75-100% of estimated needs by follow up Progress: N/A Interventions: -CHO modified diet, Commercial beverage, Multivitamin/mineral supplement therapy, Collaboration with other providers Monitoring/Evaluation: -Total energy intake, Total protein intake, Modified diet, Liquid supplement Signed: Zoe Lake RD, JENI, [facility]
[2019-05-09] MEDS: CLOTRIMAZOLE 1% CR 15 GM TOP SCH (18:52)
--- NOTE | 2019-05-09 21:06 | Consultation ---
DATE OF CONSULTATION: 05/09/2019 REASON FOR CONSULTATION: Decubitus ulcer. HISTORY OF PRESENT ILLNESS: This is a patient who is a 58-year-old male with history of smoking since he is 16 and peripheral vascular disease. Apparently, he had bypass surgery, lower extremities, neuropathy. [facility] [place] [facility] He is coming with pressure ulcer in the coccygeal area. The patient does have diabetes mellitus, hypertension, COPD, smoker, peripheral vascular disease, esophageal stricture, neuropathy, comes in with worsening wound. He was seen by Wound Care. When he first came, his white count was 10.8, hemoglobin of 10.6. His sodium was 139, potassium of 3.3 with creatinine of 0.78. The patient was admitted. He was started on vancomycin. The patient originally was on doxycycline and Neurontin. He also received Zosyn. The patient is currently lying in bed comfortably. His is at the bedside. REVIEW OF SYSTEMS: He is just weak. He said he cannot walk. PHYSICAL EXAMINATION: GENERAL: He is currently alert, oriented, does not seem to be in acute distress. HEENT: Not icteric. NECK: Supple. CHEST: Clear bilateral. HEART: S1 and S2. ABDOMEN: Soft. IMPRESSION: Decubitus ulcer, concerned about osteo. Obtain CAT scan of the pelvis. We will put on vancomycin and cefepime. Obtain sedimentation rate and C-reactive protein. We will follow. MD SHAQUILLE Vargas/TESSIE /[id number]
[2019-05-09] MEDS: SIMVASTATIN 20 MG TAB PO SCH (21:58)
[2019-05-10] VITALS (8 sets, daily range): BP systolic 89–109; BP diastolic 60–77
[2019-05-10] MEDS: METOCLOPRAMIDE HCL 10 MG TAB PO SCH ×4 (00:37→16:51)
--- NOTE | 2019-05-10 02:39 | Diagnostic Imaging Report ---
EXAMINATION: CHEST XRAY LINE PLACEMENT INDICATION: PICC line placement, verify position COMPARISON: Chest x-ray 05/08/2019 FINDINGS: TUBES and LINES: New right upper extremity PICC, tip terminates in the superior cavoatrial junction.. LUNGS: Low lung volumes. Bilateral lower lobe haziness. PLEURA: No pleural effusion or pneumothorax. HEART AND MEDIASTINUM: The cardiomediastinal silhouette is unremarkable. BONES AND SOFT TISSUES: No acute osseous lesion. Soft tissues are unremarkable. UPPER ABDOMEN: No free air under the diaphragm. IMPRESSION: New right upper extremity PICC, tip terminates in the superior cavoatrial junction.. Low lung volumes. Bilateral lower lobe haziness can be due to atelectasis, edema, or pneumonia. Signed by: Jono Leigh DO on 05/10/2019 2:36 AM
[2019-05-10 05:35] LABS: BASOPHILS # (AUTO) 0.1 (0.0-0.1); BASOPHILS % 0.6 % (0.0-1.0); EOSINOPHILS % 0.5 % (0.0-6.0); HEMATOCRIT 26.3 % (38.2-49.6); HEMOGLOBIN 8.1 g/dL (14.0-18.0); LYMPHOCYTES # (AUTO) 0.9 (1.0-3.2); MEAN CORPUSCULAR HEMOGLOBIN 27.3 pg (28-32); MEAN CORPUSCULAR HGB CONC 30.8 g/dL (31-35); MEAN CORPUSCULAR VOLUME 88.6 fL (81-99); MONOCYTES # (AUTO) 0.8 (0.2-0.8); MONOCYTES % 8.8 % (4.4-11.3); NEUTROPHILS % 79.6 % (38.7-80.0); PLATELET COUNT 290 x10e3/uL (140-360); RED BLOOD COUNT 2.97 x10e6/uL (4.3-5.7); RED CELL DISTRIBUTION WIDTH 15.9 % (11.7-14.4)
[2019-05-10 06:04] LABS: ALBUMIN 1.4 g/dL (3.5-5.0); ALBUMIN/GLOBULIN RATIO 0.4 (0.8-2.0); ALKALINE PHOSPHATASE 59 IU/L (40-150); ANION GAP 7.1 mmol/L (8-16); BLOOD UREA NITROGEN 6 mg/dL (7-26); BUN/CREATININE RATIO 8 (6-25); CALCIUM 7.3 mg/dL (8.4-10.2); CARBON DIOXIDE 33 mmol/L (22-29); CHLORIDE 104 mmol/L (98-107); CREATININE, SERUM 0.71 mg/dL (0.72-1.25); EST GLOMERULAR FILTRATION RATE > 60 ML/MIN (60-); POTASSIUM 3.1 mmol/L (3.5-5.1); SODIUM 141 mmol/L (136-145)
[2019-05-10 06:20] LABS: ALANINE AMINOTRANSFERASE < 6 IU/L (0-55)
[2019-05-10 06:21] LABS: GLUCOSE 55 mg/dL (74-118)
[2019-05-10] MEDS: DEXTROSE 50% SYRINGE 50 ML IV PRN ×2 (06:30→13:50)
--- NOTE | 2019-05-10 06:59 | NUR ---
0620 lab called FSBS 55. Patient drowsy 0630 1 amp D50 given 0656 FSBS 155, patient alert. Will continue to monitor
--- NOTE | 2019-05-10 07:00 | NUR ---
RCD PT AT BED PT IS ALERT AND ORIENTED RESTING ON BED IV PATENT BY SALINE FLUSH BED LOW AND LOCKED CALL LIGHT IN REACH
[2019-05-10] MEDS: INSULIN LISPRO 100 UNIT/1 ML 3ML VIAL SQ SCH ×2 (07:30→16:30)
[2019-05-10] MEDS: INSULIN REGULAR, HUMAN 100 UNIT/1 ML 3ML VIAL SQ SCH ×4 (07:30→21:00)
[2019-05-10] MEDS: PANTOPRAZOLE SOD 40 MG TABEC PO SCH (07:30)
--- NOTE | 2019-05-10 07:30 | NUR ---
Bedside report and rounds completed with oncoming nurse. Patient in bed with call light in reach. No issues or concerns expressed or noted.
[2019-05-10] MEDS: MIDODRINE HCL 5 MG TABLET PO SCH ×3 (08:00→16:00)
[2019-05-10] MEDS: MORPHINE SULFATE INJ 4 MG/ML INJ 1ML IV PRN ×3 (08:15→18:32)
[2019-05-10] MEDS: ZINC SULFATE 220 MG CAP PO SCH ×2 (09:00→16:51)
[2019-05-10] MEDS: CEFEPIME 1GM/NS 0.9% 50 ML 50 ML IV SCH ×2 (09:00→16:49)
[2019-05-10] MEDS: MULTIVITAMINS/MINERALS TAB PO SCH (09:00)
[2019-05-10] MEDS: OYST-CAL-D 500MG TABLET PO SCH ×2 (09:00→16:50)
[2019-05-10] MEDS: COLLAGENASE 5 GM TUBE TOP SCH (09:00)
[2019-05-10] MEDS: TAMSULOSIN HCL 0.4 MG CAP PO SCH (09:00)
[2019-05-10] MEDS: CLOTRIMAZOLE 1% CR 15 GM TOP SCH ×2 (09:00→16:51)
[2019-05-10] MEDS: GABAPENTIN 300 MG CAP PO SCH ×3 (09:00→22:04)
[2019-05-10] MEDS: MAGNESIUM OXIDE 400 MG TAB PO SCH ×2 (09:00→16:50)
[2019-05-10] MEDS ORDERED: COLLAGENASE OINTMENT 30 GM TUBE TP SCH (09:00)
[2019-05-10] MEDS: LIDOCAINE 4% PATCH TP SCH (09:00)
[2019-05-10] MEDS: METOPROLOL TARTRATE 25 MG TAB PO SCH ×2 (09:00→16:50)
[2019-05-10] MEDS: ASCORBIC ACID 500 MG TAB PO SCH ×2 (09:00→16:50)
--- NOTE | 2019-05-10 09:10 | NUR ---
PAGED AND NOTIFIED DR OLIVEIRA THE [facility] GOT THE ORDER TO CONTINUE THE SAME
[2019-05-10] MEDS: VANCOMYCIN 1GM/NS 250 ML 250 ML IV SCH ×2 (09:30→22:04)
--- NOTE | 2019-05-10 10:00 | NUR ---
PAGED DR KENNEY NO TO NOTIFY THE POTASSIUM LEVEL AND LEFT THE MESSAGE
[2019-05-10] MEDS: SODIUM CHLORIDE 0.9% 1000ML 1,000 ML IV SCH (11:00)
--- NOTE | 2019-05-10 11:07 | NUR ---
PT WENT TO PROCEDURE IN SAFE CONDITION
[2019-05-10] MEDS ORDERED: POTASSIUM CHLORIDE 20 MEQ TAB CR PO SCH (12:00)
[2019-05-10] MEDS ORDERED: CEFEPIME HCL 1 GM VIAL IV SCH (14:00)
[2019-05-10] MEDS ORDERED: IOPAMIDOL 370 MG/ML 200 ML INFUS..BTL INJ ONE (15:07)
[2019-05-10] MEDS ORDERED: SODIUM CHLORIDE 0.9% 50ML 50 ML ONE (15:07)
--- NOTE | 2019-05-10 16:24 | Diagnostic Imaging Report ---
TECHNIQUE: Computed tomography imaging of the PELVIS was performed WITHOUT injected contrast using standard departmental protocols. Dose modulation, iterative reconstruction, and/or weight based adjustment of the mA/kV was utilized to reduce the radiation dose to as low as reasonably achievable. HISTORY: Decubitus ulceration, evaluate for osteomyelitis. COMPARISON: None. FINDINGS: Posterior decubitus ulceration visualized left of midline. No sacral cortical destruction or periostitis. No abscess. Generalized soft tissue edema. Within the pelvis, a Waters catheter and ascites present. IMPRESSION: Sacral decubitus ulceration without CT findings of osteomyelitis or abscess Signed by: Dr. Seamus Mazariegos M.D. on 05/10/2019 4:20 PM
--- NOTE | 2019-05-10 18:16 | Diagnostic Imaging Report ---
Bone Scan, three-phase Reason for exam: Sacral decubitus ulcer in diabetic patient; concern for osteomyelitis of the coccyx. Radiopharmaceutical: Tc-99m MDP 26.5 mCi IV PICC line Comparison: CT pelvis 05/10/3019 Following intravenous administration of the radiopharmaceutical, dynamic flow and immediate blood pool images pelvis and hips followed by 3-hour delayed spot images were obtained. Flow and blood pool images show symmetric distribution of tracer activity to the pelvis and hips without abnormal focal accumulation of tracer. The delayed images show normal distribution of tracer activity in the pelvis and hips without focal uptake in bone. Impression: No scan evidence of osteomyelitis in the pelvis or hips, specifically, none in the sacrum or coccyx. Signed by: Dr. Galilea Ontiveros M.D. on 05/10/2019 6:12 PM
--- NOTE | 2019-05-10 18:47 | NUR ---
PT RESTING ON BED BED SIDE REPORT GIVEN TO ONCOMING NURSE
--- NOTE | 2019-05-10 18:51 | NUR ---
AC TO RADIOLOGY PT DID THE CT PELVIC WITH CONTRAST ON TODAY HE WANTED TO DO AGAIN WITH CONTRAST THEY CAN DO ONLY ON TOMORROW PAGED AND LEFT THE MESSAGE FOR CLARIFICATION
[2019-05-10] MEDS ORDERED: HYDRALAZINE HCL 20 MG/ML VIAL IV PRN (19:00)
--- NOTE | 2019-05-10 19:14 | NUR ---
ULISES RETURNED THE CALL HE SAID HE NEED WITH CONTRAST MAY BE ON TOMORROW NOTIFIED RADIOLOGY
[2019-05-10] MEDS: SIMVASTATIN 20 MG TAB PO SCH (22:04)
[2019-05-10] MEDS ORDERED: MORPHINE SULFATE INJ 4 MG/ML INJ 1ML IV PRN (22:15)
[2019-05-10] MEDS: MORPHINE SULFATE 2 MG/ML SYR 1ML IV PRN (22:24)
[2019-05-11] MEDS: CEFEPIME 1GM/NS 0.9% 50 ML 50 ML IV SCH ×3 (00:20→17:00)
[2019-05-11] MEDS: METOCLOPRAMIDE HCL 10 MG TAB PO SCH ×4 (00:20→17:51)
[2019-05-11] MEDS: MORPHINE SULFATE 2 MG/ML SYR 1ML IV PRN ×2 (02:40→06:35)
[2019-05-11 06:32] LABS: BASOPHILS % 0.4 % (0.0-1.0); EOSINOPHILS # (AUTO) 0.1 (0.0-0.4); EOSINOPHILS % 1.2 % (0.0-6.0); HEMATOCRIT 26.8 % (38.2-49.6); HEMOGLOBIN 8.3 g/dL (14.0-18.0); LYMPHOCYTES % 17.8 % (18.0-39.1); MEAN CORPUSCULAR HEMOGLOBIN 27.5 pg (28-32); MEAN CORPUSCULAR VOLUME 88.7 fL (81-99); MONOCYTES # (AUTO) 0.8 (0.2-0.8); MONOCYTES % 6.7 % (4.4-11.3); NEUTROPHILS # (AUTO) 8.3 (2.1-6.9); NEUTROPHILS % 73.5 % (38.7-80.0); PLATELET COUNT 231 x10e3/uL (140-360); RED BLOOD COUNT 3.02 x10e6/uL (4.3-5.7); RED CELL DISTRIBUTION WIDTH 16.6 % (11.7-14.4)
[2019-05-11] MEDS: SODIUM CHLORIDE 0.9% 1000ML 1,000 ML IV SCH (06:34)
[2019-05-11 06:50] LABS: ANION GAP 5.2 mmol/L (8-16); BLOOD UREA NITROGEN 7 mg/dL (7-26); BUN/CREATININE RATIO 9 (6-25); CALCIUM 7.1 mg/dL (8.4-10.2); CARBON DIOXIDE 30 mmol/L (22-29); CHLORIDE 103 mmol/L (98-107); CREATININE, SERUM 0.81 mg/dL (0.72-1.25); EST GLOMERULAR FILTRATION RATE > 60 ML/MIN (60-); GLUCOSE 214 mg/dL (74-118); POTASSIUM 4.2 mmol/L (3.5-5.1); SODIUM 134 mmol/L (136-145)
--- NOTE | 2019-05-11 07:10 | NUR ---
RCD PT AT BED PT IS ALERT AND ORIENTED RESTING ON BED IV PATENT BY SALINE FLUSH HOWARD DRAINING BY GRAVITY BED LOW AND LOCKED CALL LIGHT IN REACH
[2019-05-11] MEDS: PANTOPRAZOLE SOD 40 MG TABEC PO SCH (07:30)
[2019-05-11] MEDS: INSULIN LISPRO 100 UNIT/1 ML 3ML VIAL SQ SCH ×2 (07:30→16:30)
[2019-05-11] MEDS: INSULIN REGULAR, HUMAN 100 UNIT/1 ML 3ML VIAL SQ SCH ×4 (07:30→21:00)
[2019-05-11 07:51] VITALS: BP 80/62
[2019-05-11] MEDS: MIDODRINE HCL 5 MG TABLET PO SCH ×3 (08:00→16:00)
[2019-05-11 08:43] VITALS: BP 80/62
[2019-05-11] MEDS: METOPROLOL TARTRATE 25 MG TAB PO SCH ×2 (08:54→17:00)
[2019-05-11] MEDS: TAMSULOSIN HCL 0.4 MG CAP PO SCH (08:54)
[2019-05-11] MEDS: ASCORBIC ACID 500 MG TAB PO SCH ×2 (08:55→17:00)
[2019-05-11] MEDS: MAGNESIUM OXIDE 400 MG TAB PO SCH ×2 (08:55→17:00)
[2019-05-11] MEDS: CLOTRIMAZOLE 1% CR 15 GM TOP SCH ×2 (08:55→17:00)
[2019-05-11] MEDS: MULTIVITAMINS/MINERALS TAB PO SCH (08:55)
[2019-05-11] MEDS: COLLAGENASE 5 GM TUBE TOP SCH (08:55)
[2019-05-11] MEDS: ZINC SULFATE 220 MG CAP PO SCH ×2 (08:55→17:00)
[2019-05-11] MEDS: GABAPENTIN 300 MG CAP PO SCH ×3 (08:55→21:23)
[2019-05-11] MEDS: OYST-CAL-D 500MG TABLET PO SCH ×2 (08:55→17:00)
[2019-05-11] MEDS: LIDOCAINE 4% PATCH TP SCH (08:56)
--- NOTE | 2019-05-11 09:12 | NUR ---
Nutrition Intervention Note RD Recommendation(s) for Physician: - Continue current diet - Recommend Glucerna Shakes TID for adequacy - Recommend Sukhwinder 1 packet BID to promote wound healing - Continue MVI with minerals, Vitamin C, and Zin Sulfate x 10 days to promote wound healing - BG and insulin management per MD Plan of Care: RD following, monitoring for tolerance and adequacy. ONS, vitamin and mineral rec's. Nutrition reason for involvement: f/u RD Assessment 05/10 Follow up: Pt was seen resting in bed, just finished breakfast and Glucerna shakes were at bedside. The pt reported he has a good appetite but has not tried his shake yet. Per FS, the pt has been consuming 50-100% of his meals. He denied N/V/chewing or swallowing issues at this time. He did report that he had some diarrhea yesterday. Encouraged intake of high protein foods to help promote wound healing. Pt has not received his Sukhwinder supplement yet, reported this to the nurse; she said she will order the supplement for the pt. Pt had no other questions or concerns. Chart reviewed. Will continue to monitor. 05/08: 58 YOM admitted from SNF for sacral PU, evaluated today per dx. Pt admitted earlier this month, intake remains poor. No wt loss noted. No GI distress. Per RN pt not eating much, but is drinking juices- elevated POC Gluc noted. RD to order Glucerna Shakes. Sukhwinder discussed with RN, to order. Pt discussed during am MDR. Chart reviewed. Will continue to monitor. Principal Problems/Diagnoses: sacral decub ulcer PMH: PVD with lower extremity bypass surgeries, DM, COPD, chronic smoker, GERD, esophageal stricture GI: Abd: soft, round, tender LBM: 05/09 Skin: unstagable PU to L heel, stage IV pressure ulcer to sacrum, ulcer to the left 2nd toe per wound care note Labs: 05/10: na 134, Co2 30, Gluc 214, POC GM: 230, Ca 7.1 05/08: Na 139, K 3.3, BUN 7, Cr 0.78, Gluc 162 Meds: zinc sulfate, vitamin C, ca carbonate, zocor, reglan, insulin, zofran, abx, mag-ox, protonix, MVI with minerals IVF: NS at 75 ml/hr Ht: 69 in Wt: 151 lb BMI: 22.3 kg/m2 IBW: 145 lb Malnutrition Evaluation (05/09/19) The patient meets criteria for mild protein calorie malnutrition at this time. Energy intake: <75% of estimated energy requirements for >7 days Wt loss: none Fat loss: none Muscle loss: Mild, clavicle visible Supporting Evidence: Fluid accumulation: none Functional Status: not assessed Nutrition Prescription (Diet Order): 1800 ADA Estimated Nutritional Needs: 5384-8258 calories/day (22-25 kcal/kg CBW) 68-103 g protein/day (1-1.5 g pro/kg CBW) Diet Adequacy: meeting calorie needs, meeting protein needs Diet Tolerance: tolerating po Diet Education Needs Assessment: Diet education not indicated at this time. Nutrition Care Level: Moderate Nutrition Diagnosis: Increased protein needs related to medical condition as evidenced by the pt having multiple pressure ulcers per wound care note. Goal: Patient will meet 75-100% of estimated needs by follow up Progress: progressing Interventions: -CHO modified diet, Commercial beverage, Multivitamin/mineral supplement therapy, Collaboration with other providers Monitoring/Evaluation: -Total energy intake, Total protein intake, Modified diet, Liquid supplement Signed: Valeria Paredes RD, LD
[2019-05-11] MEDS: VANCOMYCIN 1GM/NS 250 ML 250 ML IV SCH ×2 (09:30→21:23)
[2019-05-11] MEDS ORDERED: MORPHINE SULFATE 2 MG/ML SYR 1ML IV PRN (10:30)
[2019-05-11 11:06] VITALS: BP 91/60
[2019-05-11] MEDS ORDERED: FLUCONAZOLE 200 MG/100 ML 100 ML IV ONE (11:30)
[2019-05-11] MEDS: TRAMADOL HCL 50 MG TAB PO PRN ×2 (11:30→18:40)
--- NOTE | 2019-05-11 13:32 | NUR ---
OBTAINED SIGNATURES FOR COVID ASSESSMENT, COMPLETED RTF AND MADE PACKET FOR PT TO RETURN TO [facility]. WILL UPDATE WHEN GET MOT INFORMATION.
--- NOTE | 2019-05-11 14:00 | NUR ---
AC TO RADIOLOGY PAGED AND CLARIFIED THE CT ABDOMEN AND PELVIS WITH CONTRAST SHE SAID CANCEL THE ORDER SINCE HE DID THE CT ON PELVIS ON YESTURDAY WITH CONTRAST
--- NOTE | 2019-05-11 15:10 | NUR ---
WOUND CARE SCREENING FOLLOW UP CONSULT FOR 58 YO MALE WITH HX OF SACRAL DECUBITUS LAI 12 ON STRICT PUP STATUS AND INTERVENTIONS AND FLUIDIZED AIR MATTRESS. LABS: WBC-11.27 HGB_8.3 GLUCOSE-214 WOUND CULTURE POSITIVE FOR STREPTOCOCCUS SPECIES AND YEAST URINE CULTURE NEGATIVE IMAGING PELVIS CT IMPRESSION SACRAL DECUBITUS ULCERATION WITHOUT CT FINDINGS OF OSTEOMYELITIS OR ABSCESS. BONE SCAN 3 PHASE TO SACRAL DECUBITUS ULCER NO EVIDENCE OF OSTEOMYELITIS IN THE PELVIS OR HIPS, SPECIFICALLY NONE IN THE SACRUM OR COCCYX. SKIN ASSESSMENT COMPLETE PATIENT PRESENTS WITH HEALING UNSTAGEABLE SACRAL ULCERATION 2CMX1.5CM 80% PINK GRANULATION 20% YELLOW SLOUGH LEFT HEEL NON BLANCHABLE DISCOLORED BLISTER MEASURING 2CM X 1 CM. RECOMMENDATIONS: NURSING TO CONTINUE TO MAINTAIN STRICT PUP STATUS AND INTERVENTIONS AND EMATTRESS NURSING TO CONTINUE TO ASSIST PATIENT OUT OF BED FOR MEALS AND MUCH TOLERATED NURSING TO CONTINUE TO ASSIST PATIENT NEEDED WITH MEALS AND NUTRITIONAL SUPPLEMENTS TO ENSURE PROPER REQUIREMENTS FOR HEALING NURSING TO APPLY BILATERAL HEEL PROTECTORS. NURSING TO CONTINUE TO OFFLOAD FEET AND HEELS NEEDED WITH PILLOW SUSPENSION WHEN IN BED NURSING TO CLEAN UNSTAGEABLE SACRAL ULCERATION WITH NORMAL SALINE DAILY AND APPLY SANTYL OINTMENT AND ALLEVYN FOAM DRESSING. NURSING TO CLEAN LEFT HEEL NON BLANCHABLE DISCOLORED BLISTER WITH NS, PAT DRY WITH 4X4 GAUZE, APPLY VENELEX AND COVER WITH ALLEVYN FOAM DRESSING. Addendum: 05/11/19 at 1529 by Kat Givens RN Amended: Links added.
[2019-05-11 15:25] VITALS: BP 99/73
--- NOTE | 2019-05-11 18:51 | NUR ---
PT RESTING ON BED BED SIDE REPORT GIVEN TO ONCOMING NURSE
[2019-05-11 20:27] VITALS: BP 91/54
[2019-05-11 21:00] VITALS: BP 91/54
[2019-05-11] MEDS: SIMVASTATIN 20 MG TAB PO SCH (21:23)
[2019-05-12] VITALS (8 sets, daily range): BP systolic 90–156; BP diastolic 53–75
[2019-05-12] MEDS: METOCLOPRAMIDE HCL 10 MG TAB PO SCH ×4 (00:24→17:02)
[2019-05-12] MEDS: CEFEPIME 1GM/NS 0.9% 50 ML 50 ML IV SCH ×3 (00:57→16:08)
[2019-05-12] MEDS: TRAMADOL HCL 50 MG TAB PO PRN ×2 (01:46→11:30)
[2019-05-12 06:03] LABS: BASOPHILS # (AUTO) 0.1 (0.0-0.1); BASOPHILS % 0.4 % (0.0-1.0); EOSINOPHILS # (AUTO) 0.1 (0.0-0.4); EOSINOPHILS % 1.2 % (0.0-6.0); HEMATOCRIT 26.3 % (38.2-49.6); LYMPHOCYTES # (AUTO) 2.5 (1.0-3.2); LYMPHOCYTES % 20.5 % (18.0-39.1); MEAN CORPUSCULAR HGB CONC 30.4 g/dL (31-35); MEAN CORPUSCULAR VOLUME 88.9 fL (81-99); MONOCYTES # (AUTO) 0.9 (0.2-0.8); MONOCYTES % 7.1 % (4.4-11.3); NEUTROPHILS # (AUTO) 8.4 (2.1-6.9); NEUTROPHILS % 70.1 % (38.7-80.0); PLATELET COUNT 260 x10e3/uL (140-360); RED BLOOD COUNT 2.96 x10e6/uL (4.3-5.7); RED CELL DISTRIBUTION WIDTH 16.9 % (11.7-14.4)
[2019-05-12 06:12] LABS: BLOOD UREA NITROGEN 10 mg/dL (7-26); BUN/CREATININE RATIO 12 (6-25); CALCIUM 7.2 mg/dL (8.4-10.2); CARBON DIOXIDE 30 mmol/L (22-29); CHLORIDE 103 mmol/L (98-107); CREATININE, SERUM 0.83 mg/dL (0.72-1.25); EST GLOMERULAR FILTRATION RATE > 60 ML/MIN (60-); GLUCOSE 152 mg/dL (74-118); MAGNESIUM 1.7 MG/DL (1.3-2.1); SODIUM 137 mmol/L (136-145)
[2019-05-12] MEDS: INSULIN REGULAR, HUMAN 100 UNIT/1 ML 3ML VIAL SQ SCH ×4 (07:30→21:00)
[2019-05-12] MEDS: MAGNESIUM OXIDE 400 MG TAB PO SCH ×2 (08:45→16:08)
[2019-05-12] MEDS: TAMSULOSIN HCL 0.4 MG CAP PO SCH (08:45)
[2019-05-12] MEDS: METOPROLOL TARTRATE 25 MG TAB PO SCH ×2 (08:45→16:08)
[2019-05-12] MEDS: ASCORBIC ACID 500 MG TAB PO SCH ×2 (08:46→16:08)
[2019-05-12] MEDS: MULTIVITAMINS/MINERALS TAB PO SCH (08:46)
[2019-05-12] MEDS: ZINC SULFATE 220 MG CAP PO SCH ×2 (08:46→16:08)
[2019-05-12] MEDS: OYST-CAL-D 500MG TABLET PO SCH ×2 (08:46→16:08)
[2019-05-12] MEDS: GABAPENTIN 300 MG CAP PO SCH ×3 (08:46→21:00)
[2019-05-12] MEDS: MIDODRINE HCL 5 MG TABLET PO SCH ×3 (08:48→15:56)
[2019-05-12] MEDS: PANTOPRAZOLE SOD 40 MG TABEC PO SCH (08:49)
[2019-05-12] MEDS: VANCOMYCIN 1GM/NS 250 ML 250 ML IV SCH ×2 (09:30→20:57)
--- NOTE | 2019-05-12 09:59 | NUR ---
CUSTODIAL FACILITY DISCHARGE INFORMATION PATIENT HAS BEEN ACCEPTED TO: NAME:[facility] ADDRESS:[id number] [facility] ACCEPTING SALES PRODUCER:LANEY LEONG MD: BEN ROOM:[id number] NURSE CALL REPORT TO: [phone] IMM SIGNED AND OBTAINED (if applicable): IMM THE FOLLOWING DOCUMENTS MUST ACCOMPANY PATIENT FOR TRANSFER: COPIED CHART:PACKET
[2019-05-12] MEDS: COLLAGENASE 5 GM TUBE TOP SCH (10:37)
[2019-05-12] MEDS: BALSAM PERU/CASTOR OIL 60 GM OINT...G. TP SCH (10:37)
[2019-05-12] MEDS: CLOTRIMAZOLE 1% CR 15 GM TOP SCH ×2 (10:37→16:09)
[2019-05-12] MEDS: LIDOCAINE 4% PATCH TP SCH (10:37)
[2019-05-12] MEDS: INSULIN LISPRO 100 UNIT/1 ML 3ML VIAL SQ SCH ×2 (10:43→17:01)
--- NOTE | 2019-05-12 19:24 | NUR ---
Patient received lying in bed. AAO x 3. Patient had no complaints of pain. Respirations even and non-labored. Waters catheter draining light cayden colored urine. Fall precautions in place. Patient instructed to call for assistance when needed. Call light within reach.
[2019-05-12] MEDS: SIMVASTATIN 20 MG TAB PO SCH (21:00)
[2019-05-12] MEDS ORDERED: MELATONIN 5 MG TABLET PO PRN (21:00)
[2019-05-13] MEDS: METOCLOPRAMIDE HCL 10 MG TAB PO SCH ×4 (00:15→16:51)
[2019-05-13] MEDS: CEFEPIME 1GM/NS 0.9% 50 ML 50 ML IV SCH ×3 (00:22→16:51)
[2019-05-13 01:04] VITALS: BP 110/69
[2019-05-13 05:19] VITALS: BP 120/75
[2019-05-13 06:20] LABS: BASOPHILS # (AUTO) 0.1 (0.0-0.1); BASOPHILS % 0.5 % (0.0-1.0); EOSINOPHILS # (AUTO) 0.2 (0.0-0.4); EOSINOPHILS % 1.5 % (0.0-6.0); HEMATOCRIT 27.2 % (38.2-49.6); HEMOGLOBIN 8.4 g/dL (14.0-18.0); LYMPHOCYTES # (AUTO) 2.9 (1.0-3.2); MEAN CORPUSCULAR HGB CONC 30.9 g/dL (31-35); MEAN CORPUSCULAR VOLUME 87.5 fL (81-99); MONOCYTES # (AUTO) 0.9 (0.2-0.8); MONOCYTES % 6.5 % (4.4-11.3); NEUTROPHILS # (AUTO) 9.2 (2.1-6.9); NEUTROPHILS % 68.9 % (38.7-80.0); PLATELET COUNT 278 x10e3/uL (140-360); RED BLOOD COUNT 3.11 x10e6/uL (4.3-5.7); RED CELL DISTRIBUTION WIDTH 17.1 % (11.7-14.4)
[2019-05-13 06:41] LABS: ANION GAP 9.3 mmol/L (8-16); BLOOD UREA NITROGEN 11 mg/dL (7-26); BUN/CREATININE RATIO 13 (6-25); CALCIUM 7.4 mg/dL (8.4-10.2); CARBON DIOXIDE 31 mmol/L (22-29); CHLORIDE 102 mmol/L (98-107); CREATININE, SERUM 0.84 mg/dL (0.72-1.25); EST GLOMERULAR FILTRATION RATE > 60 ML/MIN (60-); GLUCOSE 100 mg/dL (74-118); POTASSIUM 4.3 mmol/L (3.5-5.1); SODIUM 138 mmol/L (136-145)
[2019-05-13] MEDS: PANTOPRAZOLE SOD 40 MG TABEC PO SCH (07:30)
[2019-05-13 07:57] VITALS: BP 106/50
[2019-05-13] MEDS: LIDOCAINE 4% PATCH TP SCH (09:00)
[2019-05-13] MEDS: TAMSULOSIN HCL 0.4 MG CAP PO SCH (09:57)
[2019-05-13] MEDS: MIDODRINE HCL 5 MG TABLET PO SCH ×3 (09:57→16:51)
[2019-05-13] MEDS: GABAPENTIN 300 MG CAP PO SCH ×2 (09:58→16:51)
[2019-05-13] MEDS: CLOTRIMAZOLE 1% CR 15 GM TOP SCH (09:58)
[2019-05-13] MEDS: MAGNESIUM OXIDE 400 MG TAB PO SCH ×2 (09:58→16:51)
[2019-05-13] MEDS: ASCORBIC ACID 500 MG TAB PO SCH ×2 (09:58→16:51)
[2019-05-13] MEDS: COLLAGENASE 5 GM TUBE TOP SCH (09:58)
[2019-05-13] MEDS: MULTIVITAMINS/MINERALS TAB PO SCH (09:58)
[2019-05-13] MEDS: OYST-CAL-D 500MG TABLET PO SCH ×2 (09:58→16:51)
[2019-05-13] MEDS: ZINC SULFATE 220 MG CAP PO SCH ×2 (09:58→16:51)
[2019-05-13] MEDS: VANCOMYCIN 1GM/NS 250 ML 250 ML IV SCH (10:00)
[2019-05-13] MEDS: BALSAM PERU/CASTOR OIL 60 GM OINT...G. TP SCH (10:00)
[2019-05-13] MEDS: METOPROLOL TARTRATE 25 MG TAB PO SCH ×2 (10:01→16:51)
[2019-05-13] MEDS: INSULIN REGULAR, HUMAN 100 UNIT/1 ML 3ML VIAL SQ SCH ×3 (10:03→16:30)
[2019-05-13] MEDS: INSULIN LISPRO 100 UNIT/1 ML 3ML VIAL SQ SCH ×2 (10:03→16:56)
--- NOTE | 2019-05-13 11:16 | NUR ---
IMM letter delivered and explained to pt. He verbalized understanding. Signed copy placed on chart. Copy to pt.
[2019-05-13 11:57] VITALS: BP 96/57
--- NOTE | 2019-05-13 13:45 | NUR ---
call and spoke to at [facility] gave report.
--- NOTE | 2019-05-13 15:00 | NUR ---
[facility]
[2019-05-13 16:12] VITALS: BP 89/53
--- NOTE | 2019-05-13 17:12 | Progress Note ---
DATE: 05/13/2019 SUBJECTIVE: The patient is being seen by Wound Care and by Infectious Disease. He continues to have some pain from his decubitus ulcers. He is still requiring adjustment of his insulin. PHYSICAL EXAMINATION: VITAL SIGNS: The patient is afebrile. The vital signs are stable. HEENT: Shows no facial swelling or erythema. CARDIAC: Reveals regular rate and rhythm with a normal S1, S2. LUNGS: Auscultation of lungs reveals clear breath sounds bilaterally. There is no wheezing. ABDOMEN: Soft, nontender. There is no rebound or guarding. EXTREMITIES: Show decubitus ulcer on the heel. SACRUM: Shows decubitus ulcer. LABORATORY DATA: White blood cell count is 13.3 and hemoglobin is 8.4. The platelet count is 278. BUN to creatinine ratio is normal. Other electrolytes are within normal limits. IMPRESSION: 1. Sacral decubitus ulcer, present on admission. 2. Severe peripheral vascular disease. 3. Diabetes. 4. Hypertension. PLAN: 1. Continue wound care and current antibiotics. 2. Nutritional supplementation. 3. Monitor and control blood sugars. Yamil Almeida MD [facility] /[id number]
--- NOTE | 2019-05-13 17:33 | Progress Note ---
DATE: 05/13/2019 SUBJECTIVE: Mr. Davis is doing well. There is no new complaint. REVIEW OF SYSTEMS: Otherwise unremarkable. PHYSICAL EXAMINATION: GENERAL: He is currently alert, oriented, does not seem to be in acute distress. VITAL SIGNS: Stable, currently afebrile. HEENT: Not icteric. NECK: Supple. CHEST: Clear. HEART: S1 and S2. ABDOMEN: Soft. Bowel sounds present. SKIN: His wound, he had some Enterococcus faecalis with some yeast, moderate growth. EXTREMITIES: No edema. IMAGING: CT of the pelvis, there was no osteo. He has sacral pressure decubitus ulcer. IMPRESSION: Decubitus ulcer. Continue with local care. Can discharge home with oral amoxicillin 500 mg p.o. t.i.d. and Diflucan 500 mg p.o. b.i.d. for 10 days. Local care as ordered. Follow up as an outpatient. MD SHAQUILLE Vargas/TESSIE /[id number]
[2019-05-14] MEDS ORDERED: VANCOMYCIN 1GM/NS 250 ML 250 ML IV SCH (09:30)
--- NOTE | 2019-05-15 05:43 | Discharge Summary ---
ADMISSION DIAGNOSES: Stage III sacral decubitus ulcer, present on admission; possible urinary tract infection, present on admission; generalized weakness; hypertension; type 2 diabetes; anemia of chronic disease; thrombocytosis; hyperlipidemia. DISCHARGE DIAGNOSES: Stage III sacral decubitus ulcer, present on admission; possible urinary tract infection, present on admission; generalized weakness; hypertension; type 2 diabetes; anemia of chronic disease; thrombocytosis; hyperlipidemia; yeast and Enterococcus of the sacral wound, present on admission, no osteomyelitis of the sacrum. HISTORY: Falls, type 2 diabetes, hyperlipidemia, tachycardia, GERD, ambulatory dysfunction, diabetic neuropathy, esophageal strictures, anemia of chronic disease, depression, hypertension, noncompliant. SURGICAL HISTORY: Left leg surgery, EGD with esophageal dilation, left foot surgery. FAMILY HISTORY: The patient's mother has diabetes as well as his sister. The patient's father and sister are alcoholics. SOCIAL HISTORY: The patient admits to history of alcoholism, but claims to be in recovery. He smokes marijuana occasionally and has a history of crack cocaine and meth use. He says he has been sober about 3 or 4 months from his alcoholism. He also admits to tobacco use. HOSPITAL COURSE: A 58-year-old male discharged from [facility] on 04/25/2019, on doxycycline for MRSA UTI to the [facility] for physical therapy and antibiotics, now readmits with a new stage III sacral decubitus with feces in the wound upon arrival. The patient states that he has been lying in bed for extended period of time and that nobody is helping him. On admission, ID and Wound Care were both consulted. The patient was started on antibiotics. Chest x-ray was negative. CT of the brain showed no acute abnormalities. Bone scan showed no evidence of osteomyelitis in the pelvis or hip. CT of the pelvis with contrast showed no finding of osteomyelitis. Urine culture was negative. Wound culture came back positive for Enterococcus and yeast. The patient was started on Santyl and Lotrimin per Wound Care MD and vancomycin per Infectious Disease. The patient admits to being noncompliant and says he does not often work with physical therapy. He will discharge back to [facility] for long-term antibiotics and wound care use as well as physical therapy. The patient understands discharge instructions and agrees to plan. Vital signs stable, the patient afebrile. Dictated by Erika M [place], [employer] MD DIVYA Orantes/TESSIE /[id number]
== END 2019-05-13 17:57 | DRG 593 ==
LOC: ER 12:34 → ERHOLD 14:15 → MED/SURG2 17:45 → OBSVTOIN 05-09 14:23
PROVIDERS: ADMIT Internal Medicine; ATTEND Internal Medicine
PROC: 02HV33Z Insertion of Infusion Device into Superior Vena Cava, Percutaneous Approach (ICD-10-PCS; principal; 2019-05-10)
PROC: B548ZZA Ultrasonography of Superior Vena Cava, Guidance (ICD-10-PCS; 2019-05-10)
DX: L89.154 Pressure ulcer of sacral region, stage 4 (principal); E44.1 Mild protein-calorie malnutrition; E87.2 Acidosis; B37.89 Other sites of candidiasis; L97.428 Non-pressure chronic ulcer of left heel and midfoot with other specified severity; L97.528 Non-pressure chronic ulcer of other part of left foot with other specified severity; E11.621 Type 2 diabetes mellitus with foot ulcer; I10 Essential (primary) hypertension; R53.1 Weakness; E78.5 Hyperlipidemia, unspecified; K21.9 Gastro-esophageal reflux disease without esophagitis; Z88.5 Allergy status to narcotic agent; Z68.22 Body mass index [BMI] 22.0-22.9, adult; Z86.14 Personal history of Methicillin resistant Staphylococcus aureus infection; Z91.81 History of falling; E11.42 Type 2 diabetes mellitus with diabetic polyneuropathy; Z83.3 Family history of diabetes mellitus; Z81.1 Family history of alcohol abuse and dependence; F10.21 Alcohol dependence, in remission; R26.9 Unspecified abnormalities of gait and mobility; K22.2 Esophageal obstruction; F17.210 Nicotine dependence, cigarettes, uncomplicated; E11.51 Type 2 diabetes mellitus with diabetic peripheral angiopathy without gangrene; Z95.820 Peripheral vascular angioplasty status with implants and grafts; B37.2 Candidiasis of skin and nail; B95.2 Enterococcus as the cause of diseases classified elsewhere; D63.8 Anemia in other chronic diseases classified elsewhere; R53.81 Other malaise; Z91.19 Patient's noncompliance with other medical treatment and regimen; E87.6 Hypokalemia; D47.3 Essential (hemorrhagic) thrombocythemia; Z79.4 Long term (current) use of insulin
CPT/HCPCS: 36415; 36569; 70450; 71046; 72193; 78315; 80048; 80053; 80202; 81001; 82805; 82948; 83690; 83735; 84100; 85025; 85651; 86140; 87040; 87071; 87086; 87186; 87205; 93005; 96372; 97139; 99251; 99285; A9503; G0378; J0692; J1450; J1817; J2270; J2543; J3370; J7030; J7799; Q0162; Q9967

== ENCOUNTER 2019-05-25 16:45 | Inpatient (IN) | payer MEDICARE, OTHER ==
[~2019-05-25] VITALS: Ht 175.3 cm; Wt 60.8 kg
[2019-05-25 17:31] LABS: BASOPHILS # (AUTO) 0.1 (0.0-0.1); BASOPHILS % 0.4 % (0.0-1.0); EOSINOPHILS % 0.1 % (0.0-6.0); HEMATOCRIT 26.4 % (38.2-49.6); LYMPHOCYTES # (AUTO) 1.5 (1.0-3.2); LYMPHOCYTES % 9.8 % (18.0-39.1); MEAN CORPUSCULAR HEMOGLOBIN 28.2 pg (28-32); MEAN CORPUSCULAR HGB CONC 30.3 g/dL (31-35); MONOCYTES # (AUTO) 0.6 (0.2-0.8); MONOCYTES % 4.1 % (4.4-11.3); NEUTROPHILS # (AUTO) 12.8 (2.1-6.9); NEUTROPHILS % 85.2 % (38.7-80.0); PLATELET COUNT 321 x10e3/uL (140-360); RED BLOOD COUNT 2.84 x10e6/uL (4.3-5.7); RED CELL DISTRIBUTION WIDTH 20.1 % (11.7-14.4)
[2019-05-25 17:42] LABS: BILIRUBIN,URINE NEGATIVE (NEGATIVE); CLARITY,URINE HAZY (CLEAR); COLOR,URINE YELLOW (YELLOW); KETONES,URINE NEGATIVE (NEGATIVE); LEUKOCYTE ESTERASE ,URINE SMALL (NEGATIVE); NITRITE,URINE NEGATIVE (NEGATIVE); PROTEIN,URINE DIPSTICK 1+ (NEGATIVE); URINE UROBILINOGEN 0.2 mg/dL (0.2 - 1)
[2019-05-25 17:50] LABS: ALANINE AMINOTRANSFERASE 9 IU/L (0-55); ALBUMIN 1.7 g/dL (3.5-5.0); ALBUMIN/GLOBULIN RATIO 0.4 (0.8-2.0); ALKALINE PHOSPHATASE 114 IU/L (40-150); ANION GAP 9.9 mmol/L (8-16); BLOOD UREA NITROGEN 22 mg/dL (7-26); BUN/CREATININE RATIO 24 (6-25); CALCIUM 7.9 mg/dL (8.4-10.2); CARBON DIOXIDE 23 mmol/L (22-29); CHLORIDE 108 mmol/L (98-107); CREATINE KINASE 27 IU/L (30-200); CREATININE, SERUM 0.91 mg/dL (0.72-1.25); EST GLOMERULAR FILTRATION RATE > 60 ML/MIN (60-); GLUCOSE 100 mg/dL (74-118); POTASSIUM 3.9 mmol/L (3.5-5.1); SODIUM 137 mmol/L (136-145)
[2019-05-25 17:56] LABS: BACTERIA,URINE MANY /HPF; WBC,URINE (MAN) 21-50 /HPF (0-5)
--- NOTE | 2019-05-25 18:59 | Diagnostic Imaging Report ---
EXAMINATION: CHEST SINGLE (PORTABLE) INDICATION: ^weak;low bs ^[id number] ^[id number] COMPARISON: Chest radiograph 05/10/2019 FINDINGS: AP view TUBES and LINES: Stable right PICC with tip overlying the lower SVC. LUNGS: Improved aeration of the lungs. Mildly improved bilateral pulmonary edema. Bibasilar atelectasis. PLEURA: No pleural effusions. Straight hypodense line in the lateral left chest appears to represent skin fold rather than true pneumothorax. HEART AND MEDIASTINUM: The cardiac silhouette is mildly prominent. The pulmonary arteries are enlarged and suggestive of pulmonary hypertension. BONES AND SOFT TISSUES: No acute osseous lesion. Soft tissues are unremarkable. UPPER ABDOMEN: No free air under the diaphragm. IMPRESSION: Improved bilateral pulmonary edema. Straight left lateral chest Appears to represent a skin fall rather than pneumothorax. Recommend follow-up additional chest radiograph for better evaluation. Signed by: Dr. Teressa Kapadia M.D. on 05/25/2019 6:56 PM
[2019-05-25] MEDS ORDERED: SODIUM CHLORIDE 0.9% 1000ML 1,000 ML IV SCH (19:11)
[2019-05-25] MEDS ORDERED: ONDANSETRON HCL INJ 2MG/ML 2ML 2 MG/ML VIAL IV PRN (19:15)
[2019-05-25] MEDS ORDERED: LORAZEPAM INJ 2 MG/ML VIAL IV ONE (19:45)
[2019-05-25] MEDS ORDERED: LORAZEPAM INJ 2 MG/ML VIAL ONE (19:55)
[2019-05-25] MEDS: PIPER-TAZ 3.375 GM 50 ML IV SCH (20:28)
[2019-05-25] MEDS ORDERED: IOPAMIDOL 370 MG/ML 200 ML INFUS..BTL INJ ONE (20:45)
[2019-05-25] MEDS ORDERED: SODIUM CHLORIDE 0.9% 50ML 50 ML ONE (20:45)
--- NOTE | 2019-05-25 21:24 | Diagnostic Imaging Report ---
EXAMINATION: Head CT without contrast. HISTORY:Altered mental status. COMPARISON:CT brain from 05/08/2019. TECHNIQUE: Multidetector axial images were obtained from the foramen magnum to the vertex without contrast. The images were reconstructed using brain and bone algorithms. Thin section brain images were reformatted into coronal and sagittal planes. Dose modulation, iterative reconstruction, and/or weight based adjustment of the mA/kV was utilized to reduce the radiation dose to as low as reasonably achievable. Intravenous contrast: None IMAGE QUALITY: Suboptimal evaluation due to motion-related streak artifacts. FINDINGS: Skull/scalp: No lytic or blastic. lesions. No surgical changes. Parenchyma: Nonspecific few, scattered supratentorial white matter hypodensity are likely related to small vessel ischemic changes. No acute hemorrhage, mass or acute major vascular territorial infarct. Arteries: No density suggestive of thrombosis. Mild atherosclerotic calcification in bilateral carotid siphon. Dural sinuses: No abnormal density suggestive of thrombosis. Ventricles: Mild compensated dilatation due to volume loss. No hydrocephalus. Extra-axial spaces: No abnormal density. Brain volume: Mild generalized cerebral volume loss. Craniocervical junction: No mass, Chiari malformation, or basilar invagination. Sella: No mass. Paranasal/mastoid sinuses: Imaged portions unremarkable. IMPRESSION: No acute intracranial abnormality. No change since CT head from 05/08/2019. Chronic findings: 1. Mild supratentorial white matter microvascular ischemic changes. 2. Mild generalized cerebral volume loss. Signed by: Dr. Garima Garcia M.D. on 05/25/2019 9:21 PM
[2019-05-25] MEDS: ACETAMINOPHEN 650 MG SUPP PR PRN (21:27)
[2019-05-25] MEDS ORDERED: NORCO 10-325 T1 EACH (21:55)
[2019-05-25] MEDS ORDERED: MULTIVITAMINS1 EAC7 (21:55)
[2019-05-25] MEDS ORDERED: MAGNESIUM OXID400 MG PO (21:55)
[2019-05-25] MEDS ORDERED: MELATONIN3 MG PO (21:55)
--- NOTE | 2019-05-25 22:04 | Diagnostic Imaging Report ---
EXAM: CT Chest WITH contrast INDICATION: Cough, altered mental status, shortness of breath, weak. COMPARISON: Chest radiograph 05/25/2019. TECHNIQUE: Chest was scanned utilizing a multidetector helical scanner from the lung apex through the level of the adrenal glands without administration of IV contrast. Coronal and sagittal reformations were obtained. Routine protocol was performed. IV CONTRAST: 100 mL of Omnipaque 300 RADIATION DOSE: Total DLP: 459.4 mGy*cm Estimated effective dose: (DLP x 0.014 x size factor) mSv COMPLICATIONS: None FINDINGS: LINES/ TUBES: Right arm PICC terminates in the upper SVC. PULMONARY ARTERIES: There is mild dilation of the main pulmonary artery, measuring up to 3.1 cm. Motion artifact limits evaluation. No evidence of main or lobar pulmonary emboli. LUNGS AND AIRWAYS: There is dependent appearance mucous within the trachea and central bronchi. There are multifocal predominant groundglass and scattered consolidative opacities in a predominantly dependent distribution in all lobes. Motion artifact limits evaluation for pulmonary nodule. Dependent subsegmental atelectasis in the lung bases. Mild smooth interlobular septal thickening in the lung bases. PLEURA: Small bilateral pleural effusions. HEART AND MEDIASTINUM: The thyroid gland is normal. Mildly enlarged right hilar lymph node, measuring up to 1.1 cm, subcarinal lymph node measuring up to 1.5 cm , and right peribronchial lymph node, measuring up to 1.3 cm. There is straightening of the interventricular septum with mild dilation of the right heart. Small pericardial effusion. Tortuous great vessels. Minimal thoracic aortic atherosclerosis. Scattered coronary atherosclerosis. Esophagus contains air and a small amount of fluid. Mild thickening of the distal esophagus. UPPER ABDOMEN: Limited contrast-enhanced views of the upper abdomen. Streak artifact limits evaluation. Cirrhotic morphology to the liver. Partially seen upper abdominal ascites. Gallbladder sludge versus vicarious excretion of contrast. BONES: No acute osseous abnormality. No suspicious lytic or blastic lesion. SOFT TISSUES: Diffuse anasarca. Bilateral gynecomastia. IMPRESSION: Motion artifact limits evaluation for pulmonary embolism. No evidence of main or lobar pulmonary emboli. Dilated main pulmonary artery with dilated right heart, suggestive of pulmonary hypertension/right heart dysfunction. Multifocal probably groundglass and scattered consolidative opacities with associated mucous within the central airways, which may represent multifocal aspiration in the setting of altered mental status. Atypical pneumonia can have a similar appearance. Possible superimposed pulmonary edema. Mediastinal and hilar lymphadenopathy, likely reactive. Recommend follow-up chest radiograph in 6-8 weeks to assess for resolution. Cirrhotic liver with upper abdominal ascites, diffuse anasarca, and small bilateral pleural effusions. Signed by: Dr. Juni Baig MD on 05/25/2019 10:01 PM
[2019-05-25] MEDS ORDERED: SUCCINYLCHOLINE 200 MG/10 ML SYR IV STA (22:16)
[2019-05-25] MEDS ORDERED: ETOMIDATE 2 MG/ML 10 ML INJ IV STA (22:16)
[2019-05-25] MEDS ORDERED: ACETAMINOPHEN 1000 MG/100 ML 100 ML IV ONE (22:25)
[2019-05-25] MEDS: PROPOFOL IV EMULSION 10MG/ML 100 ML IV SCH (23:53)
[2019-05-25] MEDS ORDERED: PROPOFOL IV EMULSION 10 MG/ML 50 ML VIAL ONE (23:58)
[2019-05-26] VITALS (20 sets, daily range): BP systolic 90–128; BP diastolic 58–94
--- NOTE | 2019-05-26 00:46 | Diagnostic Imaging Report ---
EXAMINATION: CHEST SINGLE (PORTABLE) INDICATION: ET tube placement. COMPARISON: CT chest 05/25/2019. FINDINGS: TUBES and LINES: Interval placement of ET tube which terminates 6.5 cm above the karan. Right arm PICC terminates in the upper SVC. LUNGS: Lungs are well inflated. Multifocal predominantly perihilar and lower lung zone consolidative opacities. PLEURA: Small bilateral pleural effusions. No pneumothorax. HEART AND MEDIASTINUM: The cardiomediastinal silhouette is unremarkable. BONES AND SOFT TISSUES: No acute osseous lesion. Soft tissues are unremarkable. UPPER ABDOMEN: No free air under the diaphragm. IMPRESSION: Interval intubation with ET tube terminating 6.5 cm above the karan. No evidence of pneumothorax. Bilateral multifocal opacities, compatible with multifocal pneumonia, possibly with superimposed pulmonary edema. Signed by: Dr. Juni Baig MD on 05/26/2019 12:43 AM
[2019-05-26] MEDS ORDERED: KETOROLAC TROMETHAMINE 30 MG/ML VIAL IV STA (01:18)
[2019-05-26 01:30] LABS: CREATINE KINASE 66 IU/L (30-200)
[2019-05-26] MEDS: PROPOFOL IV EMULSION 10MG/ML 100 ML IV SCH (02:40)
[2019-05-26] MEDS: PIPER-TAZ 3.375 GM 50 ML IV SCH (02:55)
[2019-05-26 04:40] LABS: BASOPHILS % 0.3 % (0.0-1.0); EOSINOPHILS # (AUTO) 0.1 (0.0-0.4); EOSINOPHILS % 0.4 % (0.0-6.0); HEMATOCRIT 21.3 % (38.2-49.6); LYMPHOCYTES # (AUTO) 1.1 (1.0-3.2); LYMPHOCYTES % 9.6 % (18.0-39.1); MEAN CORPUSCULAR HEMOGLOBIN 28.2 pg (28-32); MONOCYTES # (AUTO) 0.4 (0.2-0.8); NEUTROPHILS # (AUTO) 10.2 (2.1-6.9); NEUTROPHILS % 86.3 % (38.7-80.0); PLATELET COUNT 231 x10e3/uL (140-360); RED BLOOD COUNT 2.34 x10e6/uL (4.3-5.7); RED CELL DISTRIBUTION WIDTH 20.4 % (11.7-14.4)
[2019-05-26 04:48] LABS: HEMOGLOBIN 6.6 g/dL (14.0-18.0); INR 1.35; PROTHROMBIN TIME 17.6 seconds (11.9-14.5)
[2019-05-26 04:49] LABS: PARTIAL THROMBOPLASTIN TIME 41.3 seconds (23.8-35.5)
[2019-05-26 04:55] LABS: ANION GAP 11.6 mmol/L (8-16); BLOOD UREA NITROGEN 23 mg/dL (7-26); BUN/CREATININE RATIO 26 (6-25); CALCIUM 7.3 mg/dL (8.4-10.2); CARBON DIOXIDE 20 mmol/L (22-29); CHLORIDE 110 mmol/L (98-107); CREATININE, SERUM 0.89 mg/dL (0.72-1.25); EST GLOMERULAR FILTRATION RATE > 60 ML/MIN (60-); GLUCOSE 187 mg/dL (74-118); POTASSIUM 3.6 mmol/L (3.5-5.1); SODIUM 138 mmol/L (136-145)
[2019-05-26] MEDS: ACETAMINOPHEN 650 MG SUPP PR PRN (04:59)
[2019-05-26 07:13] LABS: ABG PCO2 32 mmHg (35-45); ABG PH 7.39 (7.35-7.45)
[2019-05-26 07:14] LABS: ABG HCO3 19 mmol/L (21-29)
[2019-05-26 07:15] LABS: ABG BASE EXCESS -4.6 mmol/L (-2 - 3); ABG OXYGEN SATURATION 91.7 % (96-97)
[2019-05-26] MEDS ORDERED: TRAMADOL HCL 50 MG TAB PO PRN (07:45)
[2019-05-26] MEDS ORDERED: ACETAMINOPHEN 325 MG TAB PO PRN (07:45)
[2019-05-26] MEDS ORDERED: SODIUM CHLORIDE 0.9% 250ML 250 ML IV ONE (08:15)
--- NOTE | 2019-05-26 08:33 | Consultation ---
DATE OF CONSULTATION: Pulmonary Critical Care Consultation. CHIEF COMPLAINT: Low blood sugar and pulmonary infiltrates. HISTORY OF PRESENT ILLNESS: The patient is a 58-year-old man. He has a history of diabetes and severe peripheral neuropathy. He also has some gastroparesis. He has ambulatory dysfunction as a result of his peripheral neuropathy. He required an admission to [facility] two months ago with a urinary tract infection secondary to MRSA as well as a fracture of the 11th rib after a fall. He returned to [facility] in the end of April with a sacral decubitus wound care. He was started on IV antibiotics and wound care and was subsequently [facility] He now returns after having a low blood sugar. Apparently, he became less responsive and had a low blood sugar. He went to the emergency department. After arriving in the emergency department, the staff expressed concern about his breathing and ordered a CT scan of the chest, which showed some bilateral infiltrates suggestive of atypical pneumonia or aspiration. PAST SURGICAL HISTORY: 1. Status post left leg surgery. 2. Status post prior EGD with esophageal dilatation and stent placement. PAST MEDICAL HISTORY: 1. Decubitus ulcer in the sacrum. 2. Diabetes. 3. Diabetic neuropathy. 4. Cirrhosis. 5. Chronic anemia. SOCIAL HISTORY: The patient was a previous smoker, but is not smoking now. He is not an active drinker. [facility] His main support is his . FAMILY HISTORY: Family history is significant for diabetes and alcoholism. ALLERGIES: THE PATIENT IS ALLERGIC TO CODEINE. REVIEW OF SYSTEMS: The patient has a history of some altered mental status and a low blood sugar. He did not have fevers. There was no reported headache. He was not complaining of chest pain or cough according to the notes from the nursing facility. He did have some chronic gastrointestinal problems, possibly related to gastroparesis and esophageal problems. He had a decubitus ulcer. He had difficulty ambulating related to his neuropathy. PHYSICAL EXAMINATION: VITAL SIGNS: The blood pressure is now 90/72 and the pulse is 95. The O2 saturation is 100%. He is currently on SIMV of 8 with a tidal volume of 450 and a pressure support of 10, as well as a CPAP of 5. He is breathing with the vent at a rate of 8. HEENT: Shows no facial swelling or erythema. There is an oral nasogastric tube. LYMPHATIC: Shows no submandibular, cervical, or supraclavicular adenopathy. CARDIAC: Reveals regular rate and rhythm with normal S1, S2. LUNGS: Auscultation of lungs reveals rhonchorous breath sounds bilaterally. There is no wheezing. ABDOMEN: Soft, nontender. There is no rebound or guarding. EXTREMITIES: Show no leg edema or calf tenderness. There is no cyanosis or clubbing. SKIN: Shows a sacral decubitus wound on the back. LABORATORY DATA: BUN to creatinine ratio is 23 to 0.89, carbon dioxide is 20 and chloride is 110. The glucose is 196. The white blood cell count is 11.8 and hemoglobin is 6.6. The platelet count is 231. INR is 1.35. RADIOGRAPHIC DATA: Chest CT shows multifocal infiltrates with mucus in the central airways. This may represent aspiration versus atypical pneumonia. The patient also has a cirrhotic appearing liver. There is some ascites. IMPRESSION: 1. Aspiration pneumonia present on admission. 2. Acute respiratory failure. 3. Cirrhosis. 4. Anemia secondary to chronic blood loss. 5. Diabetes. 6. Severe diabetic neuropathy. 7. Diabetic gastroparesis. 8. Sacral decubitus ulcer. PLAN: 1. The patient will need packed red blood cells x1 unit. 2. Antibiotics to cover for healthcare-acquired organisms and possible aspiration pneumonia. 3. Await viral serologies. 4. The patient is now down to 45% with a minute ventilation of 4. We will try spontaneous breathing trial and wean the patient as tolerated. 5. NG tube to intermittent suction. 6. Wound care. 7. Change PICC line. Yamil Almeida MD [facility]/ANTHONYL /[id number]
[2019-05-26 08:40] LABS: CREATINE KINASE MB 5.6 ng/mL (0-5.0)
[2019-05-26] MEDS: ASCORBIC ACID 500 MG TAB PO SCH ×2 (08:50→09:24)
[2019-05-26] MEDS: PANTOPRAZOLE SODIUM 40 MG SUSPDR.PKT PO SCH ×2 (08:50→09:24)
[2019-05-26] MEDS: MIDODRINE HCL 5 MG TABLET PO SCH ×2 (08:50→16:29)
[2019-05-26] MEDS: CEFEPIME 1GM/NS 0.9% 50 ML 50 ML IV SCH ×3 (08:50→16:30)
[2019-05-26] MEDS ORDERED: TAMSULOSIN HCL 0.4 MG CAP PO SCH (09:00)
[2019-05-26] MEDS ORDERED: AZITHROMYCIN 500MG/NS 250 ML 250 ML IV SCH (09:00)
[2019-05-26] MEDS ORDERED: GABAPENTIN 300 MG CAP PO SCH (09:00)
[2019-05-26] MEDS: VANCOMYCIN 1GM/NS 250 ML 250 ML IV SCH (09:56)
--- NOTE | 2019-05-26 13:53 | Diagnostic Imaging Report ---
EXAM: CHEST SINGLE (PORTABLE) DATE: 05/26/2019 7:00 AM INDICATION: Status post PICC placement and NG tube placement COMPARISON: 05/25/2019 FINDINGS/IMPRESSION: Right-sided PICC line identified with catheter tip terminating over the SVC. Enteric tube identified coursing below the diaphragm with tip terminating within the right mid abdomen likely at the level of the pylorus/proximal duodenum. Endotracheal tube is no longer visualized. Again identified are multifocal predominantly perihilar and lower lung zone opacities, unchanged from the prior examination. There is no evidence for pneumothorax or significant pleural effusion. The cardiomediastinal silhouette is stable in appearance. No acute osseous abnormalities identified. Signed by: Dr. Isrrael Garduno MD on 05/26/2019 1:50 PM
[2019-05-26] MEDS ORDERED: SODIUM CHLORIDE 0.9% 250ML 250 ML ONE (14:21)
[2019-05-26] MEDS ORDERED: DEXTROSE 50% SYRINGE 50 ML IV PRN (15:30)
[2019-05-26] MEDS: MORPHINE SULFATE INJ 4 MG/ML INJ 1ML IV PRN ×2 (16:10→19:46)
[2019-05-26 16:13] LABS: IRON 15 ug/dL (65-175); TRANSFERRIN < 70 mg/dL (174-364)
[2019-05-26] MEDS: FAMOTIDINE 20 MG/2 ML VIAL IV SCH (16:29)
[2019-05-26 17:19] LABS: CREATINE KINASE MB 7.4 ng/mL (0-5.0)
[2019-05-26] MEDS: ENOXAPARIN 30 MG/0.3 ML SYR SC SCH (17:37)
[2019-05-26] MEDS: INSULIN LISPRO 100 UNIT/1 ML 3ML VIAL SQ SCH ×2 (17:37→23:57)
--- NOTE | 2019-05-26 19:05 | Consultation ---
DATE OF CONSULTATION: 05/26/2019 HISTORY OF PRESENT ILLNESS: Mr. Davis is a 58-year-old white male, who has history of diabetes mellitus, peripheral neuropathy, gastroparesis, multiple admissions for UTI, MRSA infection, fractured 11 rib and multiple falls, who comes in with decubitus ulcer back in April. With decubitus ulcer, his mobility is very limited. Apparently, the patient had left neck surgery day before, not a good historian. The patient comes in on May 24 with altered mental status, so the nurse told me he had a PICC line, which he had put here, it was not changed. Also, they told me when they changed the Waters catheter, there was some thick blackish material came. The patient was alert, oriented, normal mobility, but debilitated, comes in with the above complaint. The patient is being admitted. I was asked to see him. PAST MEDICAL HISTORY: As above. PAST SURGICAL HISTORY: As above. ALLERGIES: NKA. SOCIAL HISTORY: There is no smoking, drug abuse, or alcohol abuse. LABORATORY DATA: When he first came, white count 15.06, hemoglobin of 8, today his hemoglobin is 6.6. His sodium 138, potassium 3.6 with a creatinine 0.89. Lactic acid 2. BNP of 27. PHYSICAL EXAMINATION: GENERAL: He is currently in the intensive care unit, hypotensive, O2 saturating 100, on the ventilator, SIMV with a tidal volume 450, pressure support 10, CPAP of 5. HEENT: Normocephalic, not icteric. NECK: Supple. CHEST: Clear. COR: No murmurs. ABDOMEN: Soft. Bowel sounds present. EXTREMITIES: No edema. IMPRESSION: 1. Sepsis, present on admission. Urinary tract infection versus pneumonia aspiration. 2. Liver cirrhosis. 3. Anemia, chronic with acute exacerbation. 4. Diabetes mellitus with neuropathy. 5. Gastroparesis. 6. Decubitus ulcer. RECOMMENDATIONS: 1. Put the patient on cefepime and vancomycin. We will follow the level and obtain trough plus his CBC. 2. Anemia to be addressed by Critical Care, may need blood transfusion. We will follow. MD SHAQUILLE Vargas/MODL /[id number]
--- NOTE | 2019-05-26 19:46 | History and Physical ---
PRIMARY CARE PHYSICIAN: Ron Corado MD ADDITIONAL ATTENDING DOCTOR: Ron Corado MD CHIEF COMPLAINT: Respiratory failure, hypoglycemia, unresponsiveness, intubation, and healthcare-acquired pneumonia. HISTORY OF PRESENT ILLNESS: This is a 58 years male, well known to me for the past 2 admissions. The patient was admitted under Dr. Claudio Zhao. Subsequently was discharge back to the [facility]. The patient has multiple problems including subsequent decubitus ulcer to the sacral area secondary to immobilization due to his severe diabetic neuropathy where the patient did not receive physical therapy and did not receive the turn every 2 hours and most likely from the patient refusing treatment. The patient is known to be noncompliant, but he also has very brittle diabetes. He had episode of hypoglycemic in the past. The patient has also had recurrent urinary tract infection due to his neurogenic urinary bladder. The patient at times required a Waters catheter, maintaining his urine output. The patient now came into the hospital with low blood sugar in the 30s at the [facility] and also found in respiratory failure. The patient was intubated for airway protection, but also on respiratory failure, his saturation was low. CT scan showed pneumonia most likely healthcare-acquired pneumonia due to multiple hospitalizations. The CTs in the emergency room show no pulmonary embolism grossly. He had multi focal ground-glass and scattered consolidation opacity in the central airways area with possible multiple aspiration area. The patient also has superimposed vascular congestion. Echocardiogram is done pending results. The patient is now in the ICU. Because of his status, respiratory failure finding of the CT scan and also had fever, the patient meets criteria for COVID-19 rule out. The patient placed on isolation in the ICU and the patient has been ruin out right now. His microbiology blood cultures too pending. Laboratory workup is hemoglobin and hematocrit of 6.6 and 21.3 respectively. His COVID-19 pending. His influenza a and B negative. Other toxicology obtained as well. INR is 1.35. The patient is admitted. NG tube in place. PAST MEDICAL HISTORY: Brittle diabetes, medical debility, sacral decubitus ulcer, neurogenic urinary bladder, dysphagia status post EGD with dilatation. Reflux history. Esophageal strictures. Chronic anemia, secondary to malnutrition. Major depression, anxiety disorder. SOCIAL HISTORY: The patient came from the [facility]. ALLERGIES: TO CODEINE. HOME MEDICATIONS: List is extensive. Will need to have further reconciliation and verification. PHYSICAL EXAMINATION: VITAL SIGNS: T-max was 102.1, blood pressure 102/70, pulse rate 104 to 121, respirations 22. NG tube in place. HEENT: Normocephalic and atraumatic. NECK: Supple grossly. PULMONARY: Diminished breath sounds bilaterally with coarses and rhonchi. CARDIOVASCULAR: Tachycardia. ABDOMEN: Soft. Positive bowel sounds. Generalized discomfort, but non-distention. EXTREMITIES: Trace to 1+ edema bilaterally. Waters catheter in place. NEUROLOGIC: The patient is arousable, but confused. LABORATORY DATA: WBC 15, hemoglobin 6.6, hematocrit 21.3, platelets 231. Urine 1+ protein, many bacteria with WBC 50. Chemistry, sodium 138, potassium 3.6, chloride 110, bicarb 20. BUN 23, creatinine 0.9, glucose 187. Troponin is 0.001. CT scan showed pulmonary edema, vascular congestion, but also bilateral pneumonia with possible aspiration. IMPRESSION: 1. Respiratory failure. Intubation. The patient also hypoglycemic. Airway protection. Altered mental status. Hypoglycemic severely in the 30. 2. Brittle diabetes type 2 with complications including diabetic neuropathy with immobilization and neurogenic urinary bladder. 3. Sacral decubitus ulcer, secondary to immobility. 4. Severe anemia, most likely blunt anemia and malnutrition. 5. COVID-19 ruled out due to criteria of fever, respiratory failure, pneumonia. 6. Healthcare-acquired pneumonia with recent multiple admissions. 7. Medical debility. PLAN: IV antibiotics. COVID-19 grew out serology. Ventilator and extubation when appropriate. The patient will be extubated. IV fluid support, but gently. Will need nutritional support, insulin sliding scale coverage gently. Monitor the patient closely. NG tube for aspiration. Will need more aggressive wound care. Continue with current management and adjust his medication accordingly. MD TI Zepeda/MODL /[id number]
[2019-05-26] MEDS ORDERED: SIMVASTATIN 20 MG TAB PO SCH (21:00)
[2019-05-27] VITALS (25 sets, daily range): BP systolic 105–136; BP diastolic 63–91
[2019-05-27] MEDS: MORPHINE SULFATE INJ 4 MG/ML INJ 1ML IV PRN ×5 (01:43→17:59)
[2019-05-27] MEDS: INSULIN LISPRO 100 UNIT/1 ML 3ML VIAL SQ SCH ×3 (05:13→18:00)
[2019-05-27 05:36] LABS: BASOPHILS # (AUTO) 0.1 (0.0-0.1); BASOPHILS % 0.5 % (0.0-1.0); EOSINOPHILS # (AUTO) 0.1 (0.0-0.4); HEMATOCRIT 24.5 % (38.2-49.6); HEMOGLOBIN 7.5 g/dL (14.0-18.0); LYMPHOCYTES # (AUTO) 1.6 (1.0-3.2); LYMPHOCYTES % 15.3 % (18.0-39.1); MEAN CORPUSCULAR HEMOGLOBIN 27.9 pg (28-32); MEAN CORPUSCULAR HGB CONC 30.6 g/dL (31-35); MEAN CORPUSCULAR VOLUME 91.1 fL (81-99); MONOCYTES # (AUTO) 0.5 (0.2-0.8); MONOCYTES % 5.2 % (4.4-11.3); NEUTROPHILS # (AUTO) 7.9 (2.1-6.9); NEUTROPHILS % 77.6 % (38.7-80.0); PLATELET COUNT 293 x10e3/uL (140-360); RED BLOOD COUNT 2.69 x10e6/uL (4.3-5.7); RED CELL DISTRIBUTION WIDTH 20.7 % (11.7-14.4)
[2019-05-27 05:54] LABS: ALANINE AMINOTRANSFERASE 9 IU/L (0-55); ALBUMIN 1.4 g/dL (3.5-5.0); ALBUMIN/GLOBULIN RATIO 0.3 (0.8-2.0); ALKALINE PHOSPHATASE 97 IU/L (40-150); ANION GAP 9.7 mmol/L (8-16); BLOOD UREA NITROGEN 21 mg/dL (7-26); BUN/CREATININE RATIO 25 (6-25); CALCIUM 7.6 mg/dL (8.4-10.2); CARBON DIOXIDE 23 mmol/L (22-29); CHLORIDE 113 mmol/L (98-107); CREATININE, SERUM 0.84 mg/dL (0.72-1.25); EST GLOMERULAR FILTRATION RATE > 60 ML/MIN (60-); GLUCOSE 111 mg/dL (74-118); POTASSIUM 3.7 mmol/L (3.5-5.1); SODIUM 142 mmol/L (136-145)
[2019-05-27] MEDS: FAMOTIDINE 20 MG/2 ML VIAL IV SCH ×2 (08:55→17:59)
[2019-05-27] MEDS: CEFEPIME 1GM/NS 0.9% 50 ML 50 ML IV SCH ×2 (08:55→16:24)
[2019-05-27] MEDS: BALSAM PERU/CASTOR OIL 60 GM OINT...G. TP SCH (08:55)
[2019-05-27] MEDS: MIDODRINE HCL 5 MG TABLET PO SCH ×3 (08:55→17:59)
[2019-05-27] MEDS: VANCOMYCIN 1GM/NS 250 ML 250 ML IV SCH (09:11)
[2019-05-27] MEDS ORDERED: ACETAMINOPHEN 1000 MG/100 ML IV PRN (09:45)
[2019-05-27] MEDS ORDERED: IRON SUCROSE 100 MG in SODIUM CHLORIDE 0.9% 100 ML 100 ML IV SCH (10:30)
--- NOTE | 2019-05-27 13:19 | Progress Note ---
DATE: SUBJECTIVE: Mr. Davis seems to be much better today. He is more alert. Remains in intensive care unit, but we are waiting for him to get COVID result before we discharge him to a different room. The patient at present time has no new complaints. REVIEW OF SYSTEMS: Negative. LABORATORY DATA: Reviewed. White count is down to 10.13, hemoglobin 7.5. His sodium 142, potassium 3.7, creatinine 0.84. His cultures remains negative 24 hour. PHYSICAL EXAMINATION: GENERAL: He is currently alert, comfortable. VITAL SIGNS: Stable, afebrile. HEENT: Not icteric. NECK: Supple. CHEST: Clear. COR: S1, S2. ABDOMEN: Soft. IMPRESSION: 1. Sepsis on admission secondary to urinary tract infection, pyelonephritis, improving. 2. Anemia seem to be stable. 3. Diabetes mellitus type 2. 4. Neurogenic bladder. 5. Decubitus ulcer. 6. Immobility, neuropathy. 7. Probably underlying chronic aspiration pneumonia. 8. Once COVID-19 hopefully we can get it today, if negative, can go to a medical floor, if positive then to continue with droplet isolation. MD SHAQUILLE Vargas/TESSIE /[id number]
--- NOTE | 2019-05-27 13:49 | Progress Note ---
DATE: SUBJECTIVE: The patient was extubated yesterday. He required a unit of packed red blood cells. Today, he is doing well on 2 L. He has some intermittent confusion. He continues to have some low-grade temperature. PHYSICAL EXAMINATION: VITAL SIGNS: The blood pressure is 119/91, saturation is 99% on 2 L. The pulse is 112. The temperature is 99.7. HEENT: Shows no facial swelling or erythema. The oropharynx is normal. LYMPHATIC: Shows no submandibular, cervical, or supraclavicular adenopathy. CARDIAC: Reveals a regular rate and rhythm with normal S1, S2. LUNGS: Auscultation of lungs shows clear breath sounds bilaterally. ABDOMEN: Soft, nontender. There is no rebound or guarding. EXTREMITIES: Show no leg edema or calf tenderness. There is no cyanosis or clubbing. SKIN: Shows no rashes. LABORATORY DATA: White blood cell count is 10.1 and hemoglobin is 7.5. The platelet count is 293. BUN to creatinine ratio is normal. The other electrolytes are within normal limits. IMPRESSION: 1. Aspiration pneumonia with sepsis, present on admission. 2. Acute respiratory failure. 3. Cirrhosis. 4. Urinary tract infection. 5. Anemia secondary to chronic blood loss. 6. Diabetes. 7. Severe diabetic neuropathy. 8. Decubitus ulcers on the sacrum and heel. PLAN: 1. Transfer patient out of intensive care unit. 2. Continue current antibiotics. 3. Continue wound care. 4. Monitor nutritional status. Yamil Almeida MD [facility]/MODL /[id number]
[2019-05-27] MEDS ORDERED: SUCCINYLCHOLINE CHLORIDE 20 MG/ML 10ML VIAL ONE (17:28)
[2019-05-27] MEDS ORDERED: ETOMIDATE 2 MG/ML 10 ML INJ IV ONE (17:28)
[2019-05-27] MEDS: PROPOFOL IV EMULSION 10MG/ML 100 ML IV SCH (19:59)
[2019-05-28] VITALS (13 sets, daily range): BP systolic 90–134; BP diastolic 49–88
[2019-05-28] MEDS: MORPHINE SULFATE INJ 4 MG/ML INJ 1ML IV PRN ×5 (00:10→22:40)
[2019-05-28 05:56] LABS: BASOPHILS # (AUTO) 0.1 (0.0-0.1); BASOPHILS % 0.5 % (0.0-1.0); EOSINOPHILS # (AUTO) 0.1 (0.0-0.4); LYMPHOCYTES # (AUTO) 2.1 (1.0-3.2); LYMPHOCYTES % 19.8 % (18.0-39.1); MEAN CORPUSCULAR HEMOGLOBIN 27.9 pg (28-32); MEAN CORPUSCULAR VOLUME 93.1 fL (81-99); MONOCYTES # (AUTO) 0.7 (0.2-0.8); MONOCYTES % 6.3 % (4.4-11.3); NEUTROPHILS # (AUTO) 7.5 (2.1-6.9); NEUTROPHILS % 71.9 % (38.7-80.0); PLATELET COUNT 273 x10e3/uL (140-360); RED BLOOD COUNT 2.47 x10e6/uL (4.3-5.7); RED CELL DISTRIBUTION WIDTH 20.8 % (11.7-14.4)
[2019-05-28] MEDS: INSULIN LISPRO 100 UNIT/1 ML 3ML VIAL SQ SCH ×4 (06:00→18:00)
[2019-05-28 06:22] LABS: HEMOGLOBIN 6.9 g/dL (14.0-18.0)
[2019-05-28 06:26] LABS: ALANINE AMINOTRANSFERASE 8 IU/L (0-55); ALBUMIN 1.4 g/dL (3.5-5.0); ALBUMIN/GLOBULIN RATIO 0.3 (0.8-2.0); ALKALINE PHOSPHATASE 88 IU/L (40-150); ANION GAP 10.8 mmol/L (8-16); BLOOD UREA NITROGEN 15 mg/dL (7-26); BUN/CREATININE RATIO 19 (6-25); CALCIUM 7.5 mg/dL (8.4-10.2); CARBON DIOXIDE 22 mmol/L (22-29); CHLORIDE 115 mmol/L (98-107); CREATININE, SERUM 0.77 mg/dL (0.72-1.25); EST GLOMERULAR FILTRATION RATE > 60 ML/MIN (60-); GLUCOSE 100 mg/dL (74-118); POTASSIUM 3.8 mmol/L (3.5-5.1); SODIUM 144 mmol/L (136-145)
[2019-05-28] MEDS ORDERED: SODIUM CHLORIDE 0.9% 250ML 250 ML IV ONE (06:45)
[2019-05-28] MEDS: FAMOTIDINE 20 MG/2 ML VIAL IV SCH ×2 (08:25→17:20)
[2019-05-28] MEDS: CEFEPIME 1GM/NS 0.9% 50 ML 50 ML IV SCH ×3 (08:25→16:27)
[2019-05-28] MEDS: BALSAM PERU/CASTOR OIL 60 GM OINT...G. TP SCH (08:44)
[2019-05-28] MEDS: MIDODRINE HCL 5 MG TABLET PO SCH ×3 (08:44→17:20)
[2019-05-28] MEDS: VANCOMYCIN 1GM/NS 250 ML 250 ML IV SCH (10:11)
--- NOTE | 2019-05-28 11:46 | Progress Note ---
DATE: SUBJECTIVE: The patient's hemoglobin was 6.9 this morning, but there was no evidence of any active bleeding. He is scheduled to receive 1 unit of packed red blood cells. The patient does have some confusion. He is afebrile. PHYSICAL EXAMINATION: VITAL SIGNS: Vital signs are stable. The blood pressure is 125/86 and saturation is 94%. HEENT: No facial swelling or erythema. CARDIAC: Regular rate and rhythm with normal S1, S2. LUNGS: Auscultation of the lungs shows clear breath sounds bilaterally. There is no wheezing. ABDOMEN: Soft, nontender. There is no rebound or guarding. EXTREMITIES: No leg edema or calf tenderness. There is no cyanosis or clubbing. SKIN: No rashes. NEUROLOGICAL: No focal abnormalities. IMPRESSION: 1. Anemia secondary to chronic blood loss. 2. Aspiration pneumonia with sepsis, present on admission. 3. Cirrhosis. 4. Decubitus ulcer on the sacrum and heel. 5. Diabetes. 6. Severe diabetic neuropathy. PLAN: 1. Transfer out of intensive care unit. 2. Additional packed red blood cells. 3. Wound care. 4. Complete antibiotics. 5. Monitor nutritional status. 6. Continue contact isolation until coronavirus test is available. Yamil Almeida MD [facility]/MODL /[id number]
[2019-05-28] MEDS ORDERED: SODIUM CHLORIDE 0.9% 250ML 250 ML ONE (16:44)
[2019-05-28] MEDS: ENOXAPARIN 30 MG/0.3 ML SYR SC SCH (17:20)
[2019-05-28] MEDS: HYDROCODONE/APAP 5MG-325MG TAB PO PRN (19:46)
[2019-05-28] MEDS: PROPOFOL IV EMULSION 10MG/ML 100 ML IV SCH (23:45)
[2019-05-29] VITALS (7 sets, daily range): BP systolic 110–154; BP diastolic 70–97
[2019-05-29] MEDS: CEFEPIME 1GM/NS 0.9% 50 ML 50 ML IV SCH ×3 (00:30→16:46)
[2019-05-29] MEDS: INSULIN LISPRO 100 UNIT/1 ML 3ML VIAL SQ SCH ×3 (00:30→12:00)
[2019-05-29] MEDS: MORPHINE SULFATE INJ 4 MG/ML INJ 1ML IV PRN ×4 (03:57→21:00)
[2019-05-29 06:08] LABS: BASOPHILS # (AUTO) 0.1 (0.0-0.1); BASOPHILS % 0.4 % (0.0-1.0); EOSINOPHILS # (AUTO) 0.2 (0.0-0.4); HEMATOCRIT 29.2 % (38.2-49.6); HEMOGLOBIN 9.1 g/dL (14.0-18.0); LYMPHOCYTES # (AUTO) 2.2 (1.0-3.2); LYMPHOCYTES % 19.9 % (18.0-39.1); MEAN CORPUSCULAR HEMOGLOBIN 27.9 pg (28-32); MEAN CORPUSCULAR HGB CONC 31.2 g/dL (31-35); MEAN CORPUSCULAR VOLUME 89.6 fL (81-99); MONOCYTES # (AUTO) 0.6 (0.2-0.8); MONOCYTES % 5.4 % (4.4-11.3); NEUTROPHILS # (AUTO) 8.1 (2.1-6.9); NEUTROPHILS % 71.8 % (38.7-80.0); PLATELET COUNT 312 x10e3/uL (140-360); RED BLOOD COUNT 3.26 x10e6/uL (4.3-5.7); RED CELL DISTRIBUTION WIDTH 19.8 % (11.7-14.4)
[2019-05-29] MEDS: HYDROCODONE/APAP 5MG-325MG TAB PO PRN ×2 (06:21→12:53)
[2019-05-29 06:31] LABS: ANION GAP 10.7 mmol/L (8-16); BLOOD UREA NITROGEN 13 mg/dL (7-26); BUN/CREATININE RATIO 17 (6-25); CALCIUM 7.8 mg/dL (8.4-10.2); CARBON DIOXIDE 24 mmol/L (22-29); CHLORIDE 110 mmol/L (98-107); CREATININE, SERUM 0.75 mg/dL (0.72-1.25); EST GLOMERULAR FILTRATION RATE > 60 ML/MIN (60-); GLUCOSE 136 mg/dL (74-118); POTASSIUM 3.7 mmol/L (3.5-5.1); SODIUM 141 mmol/L (136-145)
[2019-05-29 06:37] LABS: IRON 39 ug/dL (65-175); TRANSFERRIN < 70 mg/dL (174-364)
[2019-05-29 06:59] LABS: FERRITIN 664.89 ng/mL (21.81-274.66)
[2019-05-29] MEDS: BALSAM PERU/CASTOR OIL 60 GM OINT...G. TP SCH (09:36)
[2019-05-29] MEDS: FAMOTIDINE 20 MG/2 ML VIAL IV SCH ×2 (09:36→16:46)
[2019-05-29] MEDS: MIDODRINE HCL 5 MG TABLET PO SCH ×3 (09:36→16:46)
[2019-05-29] MEDS: VANCOMYCIN 1GM/NS 250 ML 250 ML IV SCH (10:45)
[2019-05-29] MEDS: IRON SUCROSE 100 MG in SODIUM CHLORIDE 0.9% 100 ML 100 ML IV SCH ×2 (13:00→15:00)
--- NOTE | 2019-05-29 13:00 | Progress Note ---
DATE: SUBJECTIVE: The patient is currently comfortable in bed and wants to go home. No complaints of nausea, vomiting, cough, fever, chills, chest pain, shortness of breath, headache, dysuria, polyuria, rash or chills. ALLERGIES: CODEINE. OBJECTIVE: VITAL SIGNS: Temperature 96.5, pulse 99, respiration 15, blood pressure 110/70. Fever resolved since 05/28/2019 on 3 o'clock in the morning. MEDICATIONS: Medication list reviewed. As far as Infectious Disease point of view the patient is on vancomycin IV and cefepime. LABORATORY STUDIES: White blood cells 11.23, hemoglobin 9.1, platelet 312,000. Creatinine of 0.75. Serology; COVID-19 not detected. Influenza A and B antigen negative. Hep panel pending. Microbiology; blood cultures negative 72 hours. RADIOLOGY STUDIES: No new radiology studies available at this point. ASSESSMENT AND PLAN: This is a pleasant 58-year-old gentleman admitted with: 1. Sepsis on admission secondary to UTI/pyelonephritis, which has improved since. 2. Anemia. 3. Diabetes. 4. Neurogenic bladder. 5. Decubitus ulcer. 6. Debility. 7. Droplet isolation secondary to COVID test negative. There is no urine culture available since admission. Continue with antibiotics as mentioned above. Discussed with nurse, will get vancomycin trough. Please refer to the chart for more information. Also discussed with Dr. Barrett in details. Dictated by Ramos Pedroza PA-C (Al) Lasha Barrett MD /MODL /[id number]
[2019-05-29] MEDS ORDERED: GADOBENATE DIMEGLUMINE 1 ML IV ONE (13:06)
--- NOTE | 2019-05-29 13:40 | Progress Note ---
DATE: SUBJECTIVE: The patient is doing well. He has no complaints. REVIEW OF SYSTEMS: HEENT: Negative. PULMONARY: Negative. CARDIAC: Negative. PHYSICAL EXAMINATION: GENERAL: He is currently alert and oriented, does not seem in acute distress. VITAL SIGNS: Stable, currently afebrile. HEENT: He is not icteric. NECK: Supple. CHEST: Clear. HEART: S1 and S2. No murmurs. ABDOMEN: Soft. IMPRESSION: We are still waiting on COVID-19, I suspect this could be negative. From Infectious Disease point of view continue diuresis, clinically doing well. Continue as ordered. We will follow. MD SHAQUILLE Vargas/MODIsaac /[id number]
--- NOTE | 2019-05-29 15:01 | Progress Note ---
DATE: SUBJECTIVE: The patient is down in Radiology. He was transferred out of the Intensive Care Unit yesterday. His coronavirus test is negative. PHYSICAL EXAMINATION: VITAL SIGNS: Stable. HEENT: No facial swelling or erythema. CARDIAC: Regular rate and rhythm with normal S1, S2. LUNGS: Auscultation of the lungs reveals decreased breath sounds at the bases. There is no wheezing. ABDOMEN: Soft, nontender. There are decubitus ulcers on his sacrum and his heel. He has muscle atrophy from neuropathy. LABORATORY DATA: White blood cell count is 11.2 and hemoglobin is 9.1, the platelet count is 312,000. The BUN to creatinine ratio is normal. The other electrolytes are within normal limits. IMPRESSION: 1. Urinary tract infection. 2. Aspiration pneumonia. 3. Cirrhosis. 4. Decubitus ulcer on the sacrum and heel. 5. Diabetes. 6. Severe diabetic neuropathy. PLAN: 1. Continue current antibiotics. 2. Wound care. 3. Nutritional supplementation. Yamil Almeida MD [facility]/MODL /[id number]
--- NOTE | 2019-05-29 16:33 | Diagnostic Imaging Report ---
ADDENDUM #1 Please note the following dictation error in the impression under numeral 3, the following should read: Degenerative changes as described, greatest at L5-S1 where a disc osteophyte complex and small calcified disc extrusion abut the left S1 nerve root. No significant lumbar or thoracic canal stenosis. Signed by: Dr. Jose Connors M.D. on 05/29/2019 5:03 PM ORIGINAL REPORT Exams: Thoracic and lumbar spine MRIs without with IV contrast History: Severe back pain radiates down legs with leg weakness. Comparison studies: Included spine from chest CT and pelvis CT 05/10/2019. Nuclear medicine bone scan 05/10/2019. Technique: Sagittal, axial coronal T2, sagittal STIR, sagittal precontrast T1 and postcontrast sagittal and axial T1 through the thoracic and lumbar spine and axial oblique proton density through the lumbar spine. IV contrast: 14 cc MultiHance. Intravenous contrast: None Findings: Several pulse sequences are limited by artifacts related to patient motion. The axial postcontrast sequence through the lumbar spine was also unable to be obtained. Number of lumbar vertebral bodies: 5. Alignment: Normal thoracic kyphosis and lumbar lordosis. No significant scoliosis. Soft tissues: Small bilateral pleural effusions with bilateral airspace signal changes in both lungs, most pronounced in the included upper lobes (cannot further adequate evaluate by MRI due to motion artifacts on this exam). Partially imaged fluid collection along the posterior left lower abdominal wall lateral to the psoas muscle measures at least 2.3 cm in diameter. Adjacent loculated fluid collection lateral to this collection along the left posterior abdominal wall measures at least 8.0 cm x 6.4 cm (CC X TV). Dorsal paraspinal musculature: No significant atrophic changes. Lower thoracic cord: Normal in signal and morphology. The tip of the conus is at L2. Cauda equina: No masses. No arachnoiditis. No gross abnormal enhancement as seen on the sagittal T1 postcontrast sequence. Vertebrae: No acute compression fracture or infection. Chronic superior endplate depression deformity at L1 results in approximately 20% height loss. Chronic superior L3 endplate compression fracture results in up to 50% height loss on the right. No retropulsion or marrow edema to indicate recent fracture. A few scattered shallow thoracic and lumbar Schmorl's nodes are present. Incidental small T1 hyperintense C6 vertebral body is present. No other neoplasm. Thoracic degenerative changes: Mild multilevel disc degeneration with loss of disc height loss of T2 disc signal. Small left central disc protrusion at T2-T3, left central disc protrusion at T7-T8, central disc protrusion at T8-T9 and disc bulge at T11-T12 do not result in significant canal stenosis. Patent neural foramina. Multilevel degenerative changes present in the partially imaged cervical spine. Lumbar degenerative changes: Facet arthrosis from L3 to S1. Moderately degenerated L5-S1 disc with disc osteophyte complex and small calcified inferior migrated disc extrusion which abuts the left S1 nerve root. Mild bilateral foraminal stenosis at L5-S1 due to disc osteophyte complex and facet arthrosis. No lumbar canal stenosis. Please see separate report for sacrum MRI performed on same date. IMPRESSION: Limited exam. In spite of limitations: 1. Partially imaged nonspecific fluid collections along the left lower posterior abdominal wall lateral to the psoas muscle may be abscesses or hematomas. Recommend abdomen-pelvis CT with IV contrast to further evaluate. 2. No acute abnormalities in the thoracic and lumbar spine. Specifically, no acute compression fracture or evidence of thoracic or lumbar spinal infection. 3. Degenerative changes as described, greatest at L5-S1 right disc osteophyte complex and small calcified disc extrusion which abut the left S1 nerve root. No significant lumbar or thoracic canal stenosis. 4. Small bilateral pleural effusions with bilateral multifocal pneumonia and/or pulmonary edema. Signed by: Dr. Jose Connors M.D. on 05/29/2019 4:29 PM
[2019-05-29] MEDS: ENOXAPARIN 30 MG/0.3 ML SYR SC SCH (16:46)
[2019-05-29] MEDS: FUROSEMIDE INJ 10 MG/ML 2 ML VIAL IV SCH (20:56)
[2019-05-29] MEDS: PROPOFOL IV EMULSION 10MG/ML 100 ML IV SCH (23:31)
[2019-05-30] VITALS (7 sets, daily range): BP systolic 110–162; BP diastolic 72–101
[2019-05-30] MEDS: MORPHINE SULFATE INJ 4 MG/ML INJ 1ML IV PRN ×6 (00:35→21:10)
[2019-05-30] MEDS: CEFEPIME 1GM/NS 0.9% 50 ML 50 ML IV SCH ×3 (00:35→17:28)
[2019-05-30] MEDS: INSULIN LISPRO 100 UNIT/1 ML 3ML VIAL SQ SCH ×4 (00:35→17:28)
[2019-05-30 06:14] LABS: BASOPHILS # (AUTO) 0.1 (0.0-0.1); BASOPHILS % 0.9 % (0.0-1.0); EOSINOPHILS # (AUTO) 0.3 (0.0-0.4); EOSINOPHILS % 3.4 % (0.0-6.0); HEMOGLOBIN 9.6 g/dL (14.0-18.0); LYMPHOCYTES # (AUTO) 2.3 (1.0-3.2); LYMPHOCYTES % 25.1 % (18.0-39.1); MEAN CORPUSCULAR HEMOGLOBIN 28.4 pg (28-32); MEAN CORPUSCULAR VOLUME 88.8 fL (81-99); MONOCYTES # (AUTO) 0.6 (0.2-0.8); MONOCYTES % 6.1 % (4.4-11.3); NEUTROPHILS # (AUTO) 5.7 (2.1-6.9); NEUTROPHILS % 64.1 % (38.7-80.0); PLATELET COUNT 365 x10e3/uL (140-360); RED BLOOD COUNT 3.38 x10e6/uL (4.3-5.7); RED CELL DISTRIBUTION WIDTH 19.5 % (11.7-14.4)
[2019-05-30] MEDS: FUROSEMIDE INJ 10 MG/ML 2 ML VIAL IV SCH ×2 (09:02→21:10)
[2019-05-30] MEDS: MIDODRINE HCL 5 MG TABLET PO SCH ×3 (09:02→17:28)
[2019-05-30] MEDS: FAMOTIDINE 20 MG/2 ML VIAL IV SCH ×2 (09:02→17:28)
--- NOTE | 2019-05-30 09:02 | Diagnostic Imaging Report ---
History: Mid low back pain Comparison studies:Same day MRI of the lumbar spine with and without contrast Technique: Sagittal T2 and Inversion recovery, axial T2 and spin density oblique without contrast. Post contrast axial and coronal T1 with fat surgery saturation. Contrast: 14 cc of MultiHance Findings: Sacrum: Edema signal in the enhancement at the left SI joint. The remaining bone marrow is heterogeneous in signal without significant enhancement. Soft tissues: Edema signal in the majority of the partially visualized back soft tissues and intra-abdominal structures (muscles and fat) with associated enhancement more prominent on the left lower back. Free peritoneal fluid. Partially visualized catheterized thickened wall urinary bladder. The left posterior lower back fluid collection is better visualized in the same day MRI of the lumbar spine Visualized lumbar spine: 1. Limited visualization from L4 inferior endplate 2. At L5-S1, disc degeneration with decreased intervertebral space and loss of T2 signal. Diffuse disc bulge with left subarticular disc extrusion results in no significant canal stenosis, narrowing of the left subarticular recess and mild narrowing of the bilateral neural foramina. IMPRESSION: 1. Edema signal and enhancement of the visualized soft tissues, this could be a combination interstitial edema with inflammatory changes. The posterior lower back left fluid collection is better visualized on the same day MRI of the lumbar spine, abscesses favored over hematoma. 2. Edema and enhancement of the left SI joint, concerning for sacroiliitis. The remaining bone shows no abnormal enhancement. 3. Stable degenerative changes of the lumbar spine Signed by: DR Alex Stein M.D. on 05/30/2019 8:59 AM
[2019-05-30] MEDS: BALSAM PERU/CASTOR OIL 60 GM OINT...G. TP SCH (09:09)
[2019-05-30] MEDS: VANCOMYCIN 1GM/NS 250 ML 250 ML IV SCH (10:00)
--- NOTE | 2019-05-30 11:04 | Progress Note ---
DATE: 05/30/2019 Please refer to the chart for more information. SUBJECTIVE: This is a pleasant 58-year-old gentleman, currently comfortable in bed, in no acute distress. No nausea, vomiting, fever, chills, chest pain, shortness of breath, headache, dysuria. Wants to go home. PHYSICAL EXAMINATION: VITAL SIGNS: Temperature 97.5, pulse of 91, respiration 12, blood pressure 110/72. MEDICATIONS: Medication list is reviewed as far as Infectious Disease point of view patient is on vancomycin IV and cefepime. LABORATORY STUDIES: White blood cells improved to 8.95 from 11.23, hemoglobin 9.6, platelet 365. No new BMP. Previous creatinine level was 0.75. MICROBIOLOGY STUDIES: No new microbiology studies available. RADIOLOGY STUDIES: MRI L-spine showed partially imaged nonspecific fluid collection along the left lower post surgery abdominal wall lateral to the psoas muscle, maybe abscess or hematoma. Also on the sacral with and without contrast. MRI suggested that posterior lower back left fluid collection is better visualized on the same day MRI of the lumbar spine, which abscesses favored over hematoma. ASSESSMENT AND PLAN: 1. Abnormal MRI of the lumbar spine. 2. Sepsis on admission. 3. Urinary tract infection/pyelonephritis. 4. Diabetes. 5. Neurogenic bladder. 6. Decubitus ulcer. 7. Debility. Discussed with Dr. Barrett, continue with antibiotics. Please refer to chart for more information. Dictated by Ramos Pedroza PA-C (Al) Lasha Barrett MD /MODL /[id number]
--- NOTE | 2019-05-30 11:15 | Progress Note ---
DATE: SUBJECTIVE: The patient had an MRI yesterday that showed a probable psoas abscess. Interventional Radiology has been consulted for possible percutaneous drainage. Surgery is also being consulted. PHYSICAL EXAMINATION: VITAL SIGNS: The patient is afebrile. The blood pressure is 110/72 and the saturation is 98%. HEENT: No facial swelling or erythema. CARDIAC: Regular rate and rhythm with normal S1, S2. LUNGS: Auscultation of the lungs reveals rhonchorous breath sounds bilaterally. There is no wheezing. ABDOMEN: Soft, nontender. There is no rebound or guarding. EXTREMITIES: No leg edema or calf tenderness. There is no cyanosis or clubbing. SKIN: No rashes. LABORATORY DATA: White blood cell count is 9.8, hemoglobin is 9.6 and the platelet count is 365,000. The BUN to creatinine ratio is normal. The other electrolytes are within normal limits. IMPRESSION: 1. Probable psoas abscess. 2. Aspiration pneumonia. 3. Severe diabetic neuropathy. 4. Decubitus ulcer. 5. Diabetes. PLAN: 1. Interventional Radiology to evaluate for percutaneous drainage. 2. Surgery consultation. 3. Antibiotics. 4. Continue wound care. 5. Continue to monitor blood counts and electrolytes. Yamil Almeida MD [facility]/TESSIE /[id number]
[2019-05-30] MEDS ORDERED: FENTANYL CITRATE/PF 100MCG/2 ML INJ ONE (13:50)
[2019-05-30] MEDS ORDERED: MIDAZOLAM HCL 2 MG/2 ML VIAL ONE (13:50)
--- NOTE | 2019-05-30 15:39 | Diagnostic Imaging Report ---
PROCEDURE: Drain Placement CLINICAL HISTORY: Abscess. WEAVING PROFESSOR: Delfino Brownlee DO, JD ANESTHESIA: Conscious sedation was provided by radiology nursing using constant hemodynamic monitoring for 45 Minutes. Versed IV 1 mg, Fentanyl IV 50 mcg. DEVICE: 12 Fr Drainage Catheter DOSE REDUCTION: The examination was performed according to the departmental dose-optimization program, which includes automated exposure control, adjustment of the mA and/or kV according to patient size and/or use of iterative reconstruction technique. Estimated Blood Loss: < 5cc Samples: As below. PROCEDURE: The risks, benefits, and alternatives to the procedure were discussed with the patient/healthcare proxy. All questions were answered and informed consent was obtained. A universal timeout was performed prior to starting the procedure. For the prevention of infection all elements of maximal sterile barrier technique, hand hygiene, skin preparation and sterile techniques were followed. Preliminary CT imaging of the left pelvic/abdominal abscess was performed to delineate a safe path to the area of interest. Lidocaine was used for cutaneous anesthesia. Under imaging guidance a needle was advanced into the target, and over the wire the drain was advanced into the collection. Approximately 50 mL of pus was aspirated and a sample sent for analysis. The drain was thoroughly irrigated with normal saline. The drain was connected to drainage and secured to the skin with a suture and a dry sterile dressing was applied. The patient tolerated the procedure well and was returned to the holding area/floor in stable condition. IMPRESSION: Successful CT-guided left abdominal/pelvic abscess drain placement. Signed by: Delfino Brownlee MD on 05/30/2019 3:35 PM
[2019-05-30] MEDS: ENOXAPARIN 30 MG/0.3 ML SYR SC SCH (17:28)
[2019-05-30] MEDS: PROPOFOL IV EMULSION 10MG/ML 100 ML IV SCH (20:01)
[2019-05-31] VITALS (7 sets, daily range): BP systolic 112–157; BP diastolic 67–97
[2019-05-31] MEDS: CEFEPIME 1GM/NS 0.9% 50 ML 50 ML IV SCH ×3 (00:44→17:44)
[2019-05-31] MEDS: MORPHINE SULFATE INJ 4 MG/ML INJ 1ML IV PRN ×4 (05:40→22:05)
[2019-05-31] MEDS: INSULIN LISPRO 100 UNIT/1 ML 3ML VIAL SQ SCH ×4 (06:00→17:49)
[2019-05-31 06:04] LABS: BASOPHILS # (AUTO) 0.1 (0.0-0.1); BASOPHILS % 0.9 % (0.0-1.0); EOSINOPHILS # (AUTO) 0.4 (0.0-0.4); EOSINOPHILS % 4.6 % (0.0-6.0); HEMATOCRIT 30.6 % (38.2-49.6); HEMOGLOBIN 9.6 g/dL (14.0-18.0); LYMPHOCYTES # (AUTO) 2.5 (1.0-3.2); LYMPHOCYTES % 29.2 % (18.0-39.1); MEAN CORPUSCULAR HEMOGLOBIN 28.4 pg (28-32); MEAN CORPUSCULAR HGB CONC 31.4 g/dL (31-35); MEAN CORPUSCULAR VOLUME 90.5 fL (81-99); MONOCYTES # (AUTO) 0.5 (0.2-0.8); MONOCYTES % 5.8 % (4.4-11.3); NEUTROPHILS % 58.9 % (38.7-80.0); PLATELET COUNT 349 x10e3/uL (140-360); RED BLOOD COUNT 3.38 x10e6/uL (4.3-5.7); RED CELL DISTRIBUTION WIDTH 19.4 % (11.7-14.4)
[2019-05-31 06:19] LABS: ANION GAP 9.4 mmol/L (8-16); BLOOD UREA NITROGEN 9 mg/dL (7-26); BUN/CREATININE RATIO 13 (6-25); CARBON DIOXIDE 27 mmol/L (22-29); CHLORIDE 106 mmol/L (98-107); CREATININE, SERUM 0.69 mg/dL (0.72-1.25); EST GLOMERULAR FILTRATION RATE > 60 ML/MIN (60-); GLUCOSE 109 mg/dL (74-118); POTASSIUM 3.4 mmol/L (3.5-5.1); SODIUM 139 mmol/L (136-145)
[2019-05-31 06:20] LABS: CALCIUM 6.9 mg/dL (8.4-10.2)
[2019-05-31] MEDS: BALSAM PERU/CASTOR OIL 60 GM OINT...G. TP SCH ×3 (09:00→22:00)
[2019-05-31] MEDS ORDERED: POTASSIUM CHLORIDE 20 MEQ TAB CR PO ONE (09:10)
[2019-05-31] MEDS: FUROSEMIDE INJ 10 MG/ML 2 ML VIAL IV SCH ×2 (09:58→20:56)
[2019-05-31] MEDS: MIDODRINE HCL 5 MG TABLET PO SCH ×3 (09:58→17:44)
[2019-05-31] MEDS: FAMOTIDINE 20 MG/2 ML VIAL IV SCH ×2 (09:58→17:44)
[2019-05-31] MEDS: FERROUS SULFATE 300 MG/5 ML LIQD PO SCH (09:58)
[2019-05-31] MEDS: VANCOMYCIN 1GM/NS 250 ML 250 ML IV SCH (09:59)
[2019-05-31] MEDS ORDERED: B&O 60MG R/S 60 MG SUPP PR ONE (10:41)
[2019-05-31] MEDS ORDERED: IOPAMIDOL 300MG/ML 50ML INFUS..BTL IV ONE (10:41)
[2019-05-31] MEDS ORDERED: BUPIVACAINE 0.5%/EPI 30 ML SDV INJ ONE (10:41)
--- NOTE | 2019-05-31 11:34 | Progress Note ---
DATE: SUBJECTIVE: The patient was seen and evaluated. REVIEW OF SYSTEMS: He wants to go home. No nausea, vomiting, fever, chills, chest pain, or shortness of breath. ALLERGIES: CODEINE. OBJECTIVE: VITAL SIGNS: Temperature 97.5, pulse 89, respirations 16, blood pressure 112/67. GENERAL: Alert and oriented, in no acute distress. CV: S1 and S2. CHEST: Equal expansion, clear to auscultation. No acute distress. ABDOMEN: Soft and nontender. No distention. HEENT: Moist. No pallor. No JVD. EXTREMITIES: Foot wound is under local care. MEDICATIONS: Medication is reviewed. As far as Infectious Disease point of view, the patient is on vancomycin IV and cefepime. LABORATORY STUDIES: White blood cells 8.52, hemoglobin 9.6, and platelets 349. Creatinine is 0.69. SEROLOGY: COVID-19 not detected. Influenza A and B antigen are negative. Hep B core total antibody is positive. MICROBIOLOGY: Blood culture and body fluid from abscess that was collected on 05/29, negative so far. IMAGING: The patient is status post successful CT-guided left abdominal/pelvic abscess drain placement. ASSESSMENT AND PLAN: 1. Fluid collection in the left lower status post surgery abdominal wall lateral to the psoas muscle, status post Interventional Radiology drainage of the fluid with culture negative so far. 2. Sepsis on admission. 3. Urinary tract infection. 4. Pyelonephritis. 5. Diabetes. 6. Neurogenic bladder. 7. Diabetic ulcer. Continue with antibiotics as mentioned above, refer to chart for more information, await suprapubic tube placement. Discussed with Dr. Barrett in detail. Dictated by Ramos Pedroza PA-C (Al) Lasha Barrett MD /MODL /[id number]
[2019-05-31] MEDS: IRON SUCROSE 100 MG in SODIUM CHLORIDE 0.9% 100 ML 100 ML IV SCH (14:40)
--- NOTE | 2019-05-31 17:21 | Progress Note ---
DATE: SUBJECTIVE: The patient is not having any new complaints. He went to Radiology today and had a drain placed in his psoas abscess. PHYSICAL EXAMINATION: VITAL SIGNS: The patient is afebrile. The vital signs are stable. CARDIAC: Reveals regular rate and rhythm with normal S1, S2. LUNGS: Auscultation of the lungs reveals clear breath sounds bilaterally. There is no wheezing. ABDOMEN: Soft, nontender. There is no rebound or guarding. IMPRESSION: 1. Psoas abscess. 2. Resolving aspiration pneumonia. 3. Severe diabetic neuropathy. 4. Decubitus ulcer. 5. Diabetes. PLAN: 1. Continue antibiotic therapy. 2. Continue wound care. 3. Out of bed as tolerated. 4. Discussed disposition with Dr. Barrett, Dr. Corado and Case Management. Yamil Almeida MD [facility]/ANTHONYL /[id number]
[2019-05-31] MEDS ORDERED: ROCURONIUM BROMIDE 10 MG/ML 5ML VIAL IV ONE (17:28)
[2019-05-31] MEDS ORDERED: SUCCINYLCHOLINE CHLORIDE 20 MG/ML 10ML VIAL ONE (17:28)
[2019-05-31] MEDS ORDERED: SEVOFLURANE INHAL SOLN 250 ML PEN BTL ONE (17:28)
[2019-05-31] MEDS ORDERED: GLYCOPYRROLATE INJ 0.2 MG/ML VIAL ONE (17:28)
[2019-05-31] MEDS ORDERED: ONDANSETRON HCL INJ 2MG/ML 2ML 2 MG/ML VIAL ONE (17:28)
[2019-05-31] MEDS ORDERED: PROPOFOL IV EMULSION 10 MG/ML 20 ML VIAL ONE (17:28)
[2019-05-31] MEDS ORDERED: NEOSTIGMINE 1 MG/ML 10ML VIAL ONE (17:28)
[2019-05-31] MEDS ORDERED: LIDOCAINE HCL 2% LOCAL INJ 5 ML SDV VIAL INJ ONE (17:28)
[2019-05-31] MEDS: ENOXAPARIN 30 MG/0.3 ML SYR SC SCH (17:44)
--- NOTE | 2019-05-31 18:22 | Operative Report ---
DATE OF PROCEDURE: 05/31/2019 SURGEON: Dereje Oneill MD PREOPERATIVE DIAGNOSES: 1. Recurrent urinary retention. 2. Urinary tract infections. 3. Recurrent gross hematuria. POSTOPERATIVE DIAGNOSES: 1. Recurrent urinary retention. 2. Urinary tract infections. 3. Recurrent gross hematuria. 4. Bilateral hydroureteronephrosis. OPERATION PERFORMED: 1. Cystourethroscopy with bilateral ureteral catheterization and retrograde ureteropyelography (separate procedure performed for the urinary tract infection, hematuria and hydronephrosis). 2. Interpretation of retrograde ureteropyelography, no radiologist present. 3. Cystotomy and cystostomy (separately performed to relieve the urinary retention). ANESTHESIA: General. COMPLICATIONS: None. CLINICAL SUMMARY: Benito Davis is a 58-year-old man with very [id number] diabetes. The patient has had multiple diabetic complications. He is currently admitted with sepsis and required drainage of the psoas abscess. The patient also had gross hematuria and recurrent urinary tract infection. The patient's admitting physician requests that I place a suprapubic cystostomy in order to be able to place the patient and decrease his probability of having yet another readmission. The patient has had multiple admissions this year and during all admissions there were issues with urinary tract infections, gross hematuria and urinary retention. The patient's chronic Waters catheter started caused erosion and damage to the tip of his penis in the urethral meatus and part of the reason we are doing this non-elective procedure is to stop the process of urethral damage. This was discussed with the patient, was also discussed with the patient's , was also a power of sports attorney of his case. She understands risks of bleeding, infection, injury to adjacent structures, need for additional procedures and elected to proceed. She also understands that although we are in the mode of only performing urgent cases during the coronavirus outbreak emergency. The reason we are performing this case is to prevent additional damage to the patient's urethral meatus and hopefully decrease the patient's urinary tract infection that have been causing both hematuria as well as recurrent admissions. OPERATIVE PROCEDURE IN DETAIL: Informed consent was verified, Benito Davis was properly identified, taken to the operating room, placed on the cystoscopy table in supine position. Anesthesia was uneventfully begun. The patient was then carefully gently repositioned in dorsal lithotomy position. All pressure points well padded. His genitalia were prepared and draped in usual sterile fashion. The cystoscope sheath with a visual obturator in place was atraumatically inserted patient's urethra, was guided down the unremarkable urethra through the normal sphincteric region and through the prostate bed, which was relatively open, status post transurethral resection of the prostate with complete re-epithelialization of the prostatic urethra. The bladder neck was wide open. We entered the patient's bladder. Panendoscopy revealed scarring trabeculations, cellules and chronically appearing abnormal bladder. Ureteral catheter was used to cannulate each ureter and retrograde ureteral pyelograms were performed. Interpretation of retrograde ureteropyelography contrast was instilled in retrograde fashion bilaterally. There was mild bilateral hydroureteronephrosis. There was ureterectasis both ureters down to narrowing at the level of the bladder wall, nevertheless unobstructed although slightly delayed drainage was observed bilaterally fluoroscopically. The cystoscope was withdrawn. A modified Delfino sound with a hole drilled laterally tip was then atraumatically placed into the patient's bladder. It was utilized to tent the anterior bladder wall towards the suprapubic area. We could palpate this down through the skin. Marcaine with epinephrine was utilized to infiltrate circumferentially around this site as well as onto the sound itself, thus anesthetizing the fashion on the wall of bladder. We then made a small stab wound overlying the tented up sound that we utilized electrocautery to cut down to the sound, was introduced the sound down through the incision, tied to it a 20-Kosovan Waters catheter and then pulled the sound back out the urethra dragging along with the Waters catheter. We cut the suture away and then we pulled back slowly the Waters catheter following with the cystoscope and as soon as the Waters balloon was within the bladder, we inflated with 15 mL the sterile water into the 10 mL balloon. We then pulled the suprapubic tube against the anterior abdominal wall and secured the tube to the skin with 2-0 nylon sutures. Minimal amount of hematuria was noted. Cystoscopy did not show any active bleeding and the Waters balloon was in good position along the anterior of the bladder wall. Irrigation of the suprapubic cystostomy proved work properly. A belladonna and opium suppository were placed revealing a large prostate, probably 40 g in size, smooth, nonfunctional without any nodules. The patient was then uneventfully reversed from anesthesia and taken to recovery room in stable condition. There were no complications to the procedure. He tolerated the procedure well. PLANS: Plans will be to monitor the patient postoperatively on an ongoing basis. Should the patient be able to rehabilitate to position strength and be ambulatory. Once he is an outpatient, we can revisit the possibility of a voiding in hopes of reestablishing normal voiding in this patient. MD SIMONE Bailey/TESSIE /[id number]
[2019-05-31] MEDS ORDERED: FENTANYL CITRATE/PF 100MCG/2 ML INJ ONE (19:44)
[2019-06-01] VITALS (9 sets, daily range): BP systolic 125–154; BP diastolic 72–98
[2019-06-01] MEDS: CEFEPIME 1GM/NS 0.9% 50 ML 50 ML IV SCH ×3 (00:32→16:42)
[2019-06-01] MEDS: INSULIN LISPRO 100 UNIT/1 ML 3ML VIAL SQ SCH ×5 (00:33→20:30)
[2019-06-01] MEDS: MORPHINE SULFATE INJ 4 MG/ML INJ 1ML IV PRN ×6 (02:00→21:24)
[2019-06-01] MEDS ORDERED: SODIUM CHLORIDE 0.9% 250ML 250 ML ONE (08:06)
[2019-06-01] MEDS: FUROSEMIDE INJ 10 MG/ML 2 ML VIAL IV SCH ×2 (08:50→21:12)
[2019-06-01] MEDS: FAMOTIDINE 20 MG/2 ML VIAL IV SCH ×2 (08:50→16:42)
[2019-06-01] MEDS: MIDODRINE HCL 5 MG TABLET PO SCH ×3 (08:50→17:00)
--- NOTE | 2019-06-01 09:38 | Progress Note ---
DATE: SUBJECTIVE: Mr. Davis is a pleasant 58-year-old gentleman, who was admitted with sepsis to the hospital, which has improved significantly. REVIEW OF SYSTEMS: No nausea, no vomiting, no fever, or no chills. No chest pain or shortness of breath. No headache. ALLERGIES: CODEINE. LABORATORY STUDIES: White count of 8.52, hemoglobin 9.6, platelet 349. No new BMP available. Last creatinine on 05/30, was 0.69. MICROBIOLOGY: Blood culture remains negative. Body fluid from abscess is negative so far. RADIOLOGY: The patient is status post retrograde pyelogram. PROCEDURE: Status post suprapubic catheter on 05/31/2019, by Dr. Oneill. PHYSICAL EXAMINATION: GENERAL: Comfortable in bed. No acute distress. CV: S1, S2. CHEST: Equal expansion, clear to auscultation. No acute distress. ABDOMEN: Soft and nontender. No distention. HEENT: Moist. No pallor. No JVD. VITAL SIGNS: Temperature is 98.6, pulse 95, respirations 18, and blood pressure 131/87. ASSESSMENT AND PLAN: 1. This is a 58-year-old gentleman, admitted with sepsis, improved. 2. Fluid collection in the left lower abdominal wall lateral to the psoas muscle, status post interventional radiology assisted for the drainage and collection of sample, which is negative so far. 3. Urinary tract infection-there is no urine culture available. 4. Pyelonephritis. 5. Diabetes. 6. Neurogenic bladder-status post suprapubic catheter placement on 05/31/2019. 7. Diabetic foot ulcer. The patient remains on vancomycin IV and cefepime. We get vancomycin trough. Discussed with the nurse. Discussed with Dr. Barrett. Please refer to the chart for more information. Dictated by Ramos Pedroza PA-C (Al) Lasha Barrett MD /MODL /[id number]
[2019-06-01] MEDS ORDERED: ALTEPLASE RECOMBINANT 2 MG/2 ML VIAL IV ONE (10:00)
[2019-06-01] MEDS: VANCOMYCIN 1GM/NS 250 ML 250 ML IV SCH (11:00)
[2019-06-01] MEDS: FERROUS SULFATE 300 MG/5 ML LIQD PO SCH (11:00)
[2019-06-01] MEDS: IRON SUCROSE 100 MG in SODIUM CHLORIDE 0.9% 100 ML 100 ML IV SCH (12:25)
[2019-06-01] MEDS: ENOXAPARIN 30 MG/0.3 ML SYR SC SCH (16:42)
[2019-06-01] MEDS: POTASSIUM CHLORIDE 20 MEQ TAB CR PO SCH (16:42)
[2019-06-02] VITALS (10 sets, daily range): BP systolic 100–158; BP diastolic 75–92
[2019-06-02] MEDS: MORPHINE SULFATE INJ 4 MG/ML INJ 1ML IV PRN ×4 (00:09→12:04)
[2019-06-02] MEDS: CEFEPIME 1GM/NS 0.9% 50 ML 50 ML IV SCH ×3 (00:09→17:09)
[2019-06-02] MEDS: BALSAM PERU/CASTOR OIL 60 GM OINT...G. TP SCH (04:27)
[2019-06-02 04:51] LABS: BASOPHILS # (AUTO) 0.1 (0.0-0.1); BASOPHILS % 0.6 % (0.0-1.0); EOSINOPHILS # (AUTO) 0.4 (0.0-0.4); EOSINOPHILS % 5.4 % (0.0-6.0); HEMATOCRIT 28.6 % (38.2-49.6); HEMOGLOBIN 8.9 g/dL (14.0-18.0); LYMPHOCYTES # (AUTO) 2.9 (1.0-3.2); LYMPHOCYTES % 35.2 % (18.0-39.1); MEAN CORPUSCULAR HEMOGLOBIN 28.3 pg (28-32); MEAN CORPUSCULAR HGB CONC 31.1 g/dL (31-35); MEAN CORPUSCULAR VOLUME 90.8 fL (81-99); MONOCYTES # (AUTO) 0.6 (0.2-0.8); MONOCYTES % 6.9 % (4.4-11.3); NEUTROPHILS # (AUTO) 4.2 (2.1-6.9); NEUTROPHILS % 51.2 % (38.7-80.0); PLATELET COUNT 349 x10e3/uL (140-360); RED BLOOD COUNT 3.15 x10e6/uL (4.3-5.7); RED CELL DISTRIBUTION WIDTH 19.1 % (11.7-14.4)
[2019-06-02 05:11] LABS: ANION GAP 11.5 mmol/L (8-16); BLOOD UREA NITROGEN 8 mg/dL (7-26); BUN/CREATININE RATIO 10 (6-25); CALCIUM 7.7 mg/dL (8.4-10.2); CARBON DIOXIDE 34 mmol/L (22-29); CHLORIDE 98 mmol/L (98-107); CREATININE, SERUM 0.81 mg/dL (0.72-1.25); EST GLOMERULAR FILTRATION RATE > 60 ML/MIN (60-); GLUCOSE 100 mg/dL (74-118); POTASSIUM 3.5 mmol/L (3.5-5.1); SODIUM 140 mmol/L (136-145)
[2019-06-02] MEDS: INSULIN LISPRO 100 UNIT/1 ML 3ML VIAL SQ SCH ×4 (07:30→21:00)
[2019-06-02] MEDS: FUROSEMIDE INJ 10 MG/ML 2 ML VIAL IV SCH ×2 (08:45→21:48)
[2019-06-02] MEDS: FAMOTIDINE 20 MG/2 ML VIAL IV SCH ×2 (08:45→17:09)
[2019-06-02] MEDS: POTASSIUM CHLORIDE 20 MEQ TAB CR PO SCH (08:47)
[2019-06-02] MEDS: MIDODRINE HCL 5 MG TABLET PO SCH ×3 (08:48→12:34)
[2019-06-02] MEDS: FERROUS SULFATE 300 MG/5 ML LIQD PO SCH ×2 (09:17→17:10)
--- NOTE | 2019-06-02 11:22 | Progress Note ---
DATE: SUBJECTIVE: The patient wants to go home. No other complaints. REVIEW OF SYSTEMS: No nausea. No vomiting. No fever. No chills. No chest pain. No shortness of breath. No headache. No dysuria. No polyuria. ALLERGIES: ALLERGIC TO CODEINE. OBJECTIVE: VITAL SIGNS: Temperature is 98.6, pulse is 96, respirations 18, and blood pressure 100/75. GENERAL: Alert and oriented, no acute distress. As mentioned above, the patient wants to go home. CV: S1 and S2. CHEST: Equal expansion. No acute distress. Clear to auscultation. ABDOMEN: Soft. Positive bowel sounds. Nontender. HEENT: Moist. No pallor. No JVD. EXTREMITIES: Moves all. No acute distress. MEDICATIONS: Medication is reviewed. As far as Infectious Disease point of view, the patient is on cefepime and vancomycin IV. LABORATORY STUDIES: Showed white count of 8.15, hemoglobin 8.9, platelet 349. Sodium 140, potassium 3.5, creatinine 0.81. TOXICOLOGY: Vancomycin trough 15.7. SEROLOGY: COVID-19 not detected. Influenza A and B negative. Hep B core total antibody is positive. MICROBIOLOGY: Blood culture and body fluid from abscess negative so far. IMAGING: No new radiology studies available. ASSESSMENT AND PLAN: A 58-year-old gentleman admitted with: 1. Sepsis, which has resolved, status post aspiration of body fluids lateral to the psoas muscle, which cultures negative so far. 2. Urinary tract infection. 3. Pyelonephritis. 4. Diabetes. 5. Diabetic foot ulcer. 6. Neurogenic bladder. 7. Status post suprapubic catheterization. 8. Remains on vancomycin IV and cefepime. Vancomycin trough as mentioned above. Further management of this patient is based on daily finding, laboratory, and physical examination. Discussed with Dr. Barrett in details. The patient is allergic to codeine. Dictated by Ramos Pedroza PA-C (Al) Lasha Barrett MD /MODL /[id number]
[2019-06-02] MEDS: VANCOMYCIN 1GM/NS 250 ML 250 ML IV SCH (12:00)
[2019-06-02] MEDS: IRON SUCROSE 100 MG in SODIUM CHLORIDE 0.9% 100 ML 100 ML IV SCH (12:25)
--- NOTE | 2019-06-02 19:33 | Consultation ---
DATE OF CONSULTATION: 06/02/2019 REASON FOR THE CONSULTATION: 1. Paraspinal abscess status post drain placement. 2. Peripheral polyneuropathy, lower extremities. 3. Impaired gait and mobility. 4. Liver cirrhosis. HISTORY: A 58-year-old male who appears to be living at the halfway at least for the time being with multiple medical problems including sacral decubitus secondary to immobilization due to severe diabetic neuropathy and possibly not receiving therapy and also possibly refusing therapy. He has been known noncompliance, brittle diabetes, came into the hospital with paraspinal abscess. Had to be intubated. He came in and underwent drainage of his paraspinal abscess with catheter placement. In addition that he has liver cirrhosis and diabetes, I am being asked to evaluate for rehab needs. PAST MEDICAL HISTORY: 1. Brittle diabetes. 2. Sacral decubitus ulcer. 3. Neurogenic bladder. 4. Dysphagia. 5. History of reflux. 6. Esophageal stricture. 7. Anemia. 8. History of depression and anxiety, noncompliance with therapy and medications. PAST SURGICAL HISTORY: As above. ALLERGIES: CODEINE. SOCIAL HISTORY: Lives at a halfway. He cannot tell me when is the last time he ambulated or where he did. He cannot even tell me if he lives in a halfway or not or it is temporary. FAMILY HISTORY: Denies. CONSTITUTIONAL REVIEW OF SYSTEMS: An 11-point review of systems tend to be as per the patient. He is a little bit more confused. Rehab phillips, therapy notes reviewed. Refused to complete therapy evaluation. Stood up about 3 seconds and said he want to go back to bed, he was just too tired. He did at one point walked about 12 feet and sat up for breakfast, sat up for about an hour. Max assist with transfers. LABS: White cell count of 8.1, hemoglobin 8.9 and hematocrit 28.6, platelets of 349. Sodium 140, potassium 3.5, BUN 8, creatinine 0.81. PHYSICAL EXAMINATION: GENERAL: The patient is awake and alert and oriented x2. He says he oriented to himself. EYES: Gaze conjugate. He has a flat affect. NECK: No JVD. HEART: Regular. LUNGS: Diminished breath sounds. ABDOMEN: Nontender and nondistended. EXTREMITIES: He can move his extremities, 3/5 strength in upper extremities and lower extremities with 3-, 3/5 strength. On the right leg and left leg, he says he has some pain and soreness 2+ to 3/5, and the right hip flexion and extension, knee flexion extension is 3/5 strength, ankle dorsiflexion, plantar flexion is 0/5 strength on the left. He denies any new onset of numbness or tingling on hands, feet or face, but he does not have numbness right now, neuropathy. IMPRESSION: 1. Paraspinal abscess, status post drain in place. 2. Brittle diabetes. 3. Peripheral polyneuropathy in lower extremities, affecting gait mobility. 4. Sacral decubitus ulcer. 5. Anemia. Still too early to see if he will come to rehab as the patient uncertain if he will be able to handle 3 hours of therapy a day, however, he may need to leave 15 hours per week program, but that is dependent if he is willing to participate. Continue working on his suprapubic cath in place. We will follow. Thank you once again for allowing me participate in care of this unfortunate patient. Precautions, falls. Chato Mcarthur DO RPL/MODL /[id number]
[2019-06-03] VITALS (8 sets, daily range): BP systolic 100–129; BP diastolic 66–91
[2019-06-03] MEDS: CEFEPIME 1GM/NS 0.9% 50 ML 50 ML IV SCH ×3 (00:30→16:49)
[2019-06-03] MEDS: INSULIN LISPRO 100 UNIT/1 ML 3ML VIAL SQ SCH ×4 (08:30→20:25)
[2019-06-03] MEDS: FERROUS SULFATE 300 MG/5 ML LIQD PO SCH ×2 (09:00→17:00)
[2019-06-03] MEDS: MIDODRINE HCL 5 MG TABLET PO SCH ×3 (09:00→17:10)
[2019-06-03] MEDS: POTASSIUM CHLORIDE 20 MEQ TAB CR PO SCH (09:00)
[2019-06-03] MEDS: FAMOTIDINE 20 MG/2 ML VIAL IV SCH ×2 (09:00→16:49)
[2019-06-03] MEDS: FUROSEMIDE INJ 10 MG/ML 2 ML VIAL IV SCH ×2 (09:00→20:34)
[2019-06-03] MEDS: BALSAM PERU/CASTOR OIL 60 GM OINT...G. TP SCH (09:03)
[2019-06-03] MEDS: VANCOMYCIN 1GM/NS 250 ML 250 ML IV SCH (11:25)
[2019-06-03] MEDS: IRON SUCROSE 100 MG in SODIUM CHLORIDE 0.9% 100 ML 100 ML IV SCH (13:44)
[2019-06-03] MEDS: HYDROCODONE/APAP 5MG-325MG TAB PO PRN ×2 (14:23→20:25)
[2019-06-03] MEDS ORDERED: CHOLESTYRAMINE 4 GM PACKET PO PRN (16:15)
--- NOTE | 2019-06-03 17:31 | Progress Note ---
DATE: 06/03/2019 SUBJECTIVE: Mr. Davis is seen on rounds today. He is doing little better. He is awake and alert, in no apparent distress. At this time, much more coherent. Eating his lunch. OBJECTIVE: VITAL SIGNS: Temperature 97.8, respirations of 19, heart rate of 96, O2 sats 99%. HEART: Regular. LUNGS: The patient is breathing well, in no apparent distress. ASSESSMENT AND PLAN: Discussed with the patient about the inpatient rehabilitation. He absolutely refuses. I explained that we are trying to get him back on his feet and trying to get him to move and mobilize and hopefully be able to go back home. He tells me that he does not want to go and I asked him why, he says "I still want to do it." Therefore, at this point, he does not qualify for inpatient rehab. Discussed with patient and staff. Chato Mcarthur DO RPL/MODL /[id number]
[2019-06-04] VITALS (11 sets, daily range): BP systolic 88–121; BP diastolic 55–82
[2019-06-04] MEDS: CEFEPIME 1GM/NS 0.9% 50 ML 50 ML IV SCH ×3 (00:14→16:29)
[2019-06-04] MEDS: HYDROCODONE/APAP 5MG-325MG TAB PO PRN (03:05)
[2019-06-04 06:37] LABS: BASOPHILS # (AUTO) 0.1 (0.0-0.1); BASOPHILS % 0.8 % (0.0-1.0); EOSINOPHILS # (AUTO) 0.2 (0.0-0.4); EOSINOPHILS % 2.8 % (0.0-6.0); HEMATOCRIT 30.1 % (38.2-49.6); HEMOGLOBIN 9.4 g/dL (14.0-18.0); LYMPHOCYTES # (AUTO) 2.6 (1.0-3.2); MEAN CORPUSCULAR HEMOGLOBIN 28.3 pg (28-32); MEAN CORPUSCULAR HGB CONC 31.2 g/dL (31-35); MEAN CORPUSCULAR VOLUME 90.7 fL (81-99); MONOCYTES # (AUTO) 0.6 (0.2-0.8); NEUTROPHILS # (AUTO) 4.8 (2.1-6.9); NEUTROPHILS % 57.8 % (38.7-80.0); PLATELET COUNT 326 x10e3/uL (140-360); RED BLOOD COUNT 3.32 x10e6/uL (4.3-5.7); RED CELL DISTRIBUTION WIDTH 19.2 % (11.7-14.4)
[2019-06-04 06:50] LABS: ANION GAP 8.3 mmol/L (8-16); BLOOD UREA NITROGEN 14 mg/dL (7-26); BUN/CREATININE RATIO 16 (6-25); CALCIUM 7.7 mg/dL (8.4-10.2); CARBON DIOXIDE 38 mmol/L (22-29); CHLORIDE 98 mmol/L (98-107); CREATININE, SERUM 0.87 mg/dL (0.72-1.25); EST GLOMERULAR FILTRATION RATE > 60 ML/MIN (60-); GLUCOSE 197 mg/dL (74-118); POTASSIUM 3.3 mmol/L (3.5-5.1); SODIUM 141 mmol/L (136-145)
[2019-06-04] MEDS: FERROUS SULFATE 300 MG/5 ML LIQD PO SCH ×3 (08:53→21:00)
[2019-06-04] MEDS: FAMOTIDINE 20 MG/2 ML VIAL IV SCH (08:53)
[2019-06-04] MEDS: POTASSIUM CHLORIDE 20 MEQ TAB CR PO SCH ×3 (08:53→11:20)
[2019-06-04] MEDS: MIDODRINE HCL 5 MG TABLET PO SCH ×3 (08:53→11:37)
[2019-06-04] MEDS: FUROSEMIDE INJ 10 MG/ML 2 ML VIAL IV SCH (08:53)
[2019-06-04] MEDS: BALSAM PERU/CASTOR OIL 60 GM OINT...G. TP SCH (08:55)
[2019-06-04] MEDS: INSULIN LISPRO 100 UNIT/1 ML 3ML VIAL SQ SCH ×4 (08:55→21:00)
[2019-06-04] MEDS: MEMANTINE 10 MG TAB PO SCH ×2 (10:00→16:31)
[2019-06-04] MEDS: VANCOMYCIN 1GM/NS 250 ML 250 ML IV SCH (11:14)
[2019-06-04] MEDS: HYDROCODONE/APAP 7.5MG-325MG 1 EA TAB PO PRN (11:35)
[2019-06-04] MEDS ORDERED: FUROSEMIDE 20 MG TAB PO SCH (12:00)
[2019-06-04] MEDS: QUETIAPINE FUMARATE 25 MG TAB PO SCH ×2 (13:45→23:22)
[2019-06-04] MEDS: FAMOTIDINE 20 MG TAB PO SCH (16:31)
[2019-06-05] VITALS (9 sets, daily range): BP systolic 82–126; BP diastolic 41–87
[2019-06-05] MEDS ORDERED: SODIUM CHLORIDE 0.9% 250ML 250 ML ONE (00:43)
[2019-06-05] MEDS: CEFEPIME 1GM/NS 0.9% 50 ML 50 ML IV SCH ×3 (00:45→22:36)
[2019-06-05 06:01] LABS: BASOPHILS # (AUTO) 0.1 (0.0-0.1); BASOPHILS % 0.7 % (0.0-1.0); EOSINOPHILS # (AUTO) 0.2 (0.0-0.4); EOSINOPHILS % 2.1 % (0.0-6.0); HEMATOCRIT 27.9 % (38.2-49.6); HEMOGLOBIN 8.8 g/dL (14.0-18.0); LYMPHOCYTES # (AUTO) 2.2 (1.0-3.2); LYMPHOCYTES % 20.4 % (18.0-39.1); MEAN CORPUSCULAR HEMOGLOBIN 28.8 pg (28-32); MEAN CORPUSCULAR HGB CONC 31.5 g/dL (31-35); MEAN CORPUSCULAR VOLUME 91.2 fL (81-99); MONOCYTES # (AUTO) 0.5 (0.2-0.8); MONOCYTES % 4.4 % (4.4-11.3); NEUTROPHILS # (AUTO) 7.7 (2.1-6.9); PLATELET COUNT 223 x10e3/uL (140-360); RED BLOOD COUNT 3.06 x10e6/uL (4.3-5.7); RED CELL DISTRIBUTION WIDTH 19.2 % (11.7-14.4)
[2019-06-05] MEDS: FUROSEMIDE 20 MG TAB PO SCH ×2 (06:18→16:26)
[2019-06-05] MEDS: QUETIAPINE FUMARATE 25 MG TAB PO SCH ×3 (06:19→22:58)
[2019-06-05] MEDS: HYDROCODONE/APAP 7.5MG-325MG 1 EA TAB PO PRN ×3 (06:19→22:58)
[2019-06-05 06:34] LABS: ALBUMIN 1.7 g/dL (3.5-5.0); ALBUMIN/GLOBULIN RATIO 0.4 (0.8-2.0); ALKALINE PHOSPHATASE 62 IU/L (40-150); ANION GAP 8.9 mmol/L (8-16); BLOOD UREA NITROGEN 17 mg/dL (7-26); BUN/CREATININE RATIO 20 (6-25); CALCIUM 7.6 mg/dL (8.4-10.2); CARBON DIOXIDE 36 mmol/L (22-29); CHLORIDE 99 mmol/L (98-107); CREATININE, SERUM 0.86 mg/dL (0.72-1.25); EST GLOMERULAR FILTRATION RATE > 60 ML/MIN (60-); GLUCOSE 231 mg/dL (74-118); POTASSIUM 3.9 mmol/L (3.5-5.1); SODIUM 140 mmol/L (136-145)
[2019-06-05 06:35] LABS: ALANINE AMINOTRANSFERASE < 6 IU/L (0-55)
[2019-06-05] MEDS: FAMOTIDINE 20 MG TAB PO SCH ×2 (07:30→16:26)
[2019-06-05] MEDS: INSULIN LISPRO 100 UNIT/1 ML 3ML VIAL SQ SCH ×4 (08:25→20:27)
[2019-06-05] MEDS ORDERED: CEFEPIME HCL 1 GM VIAL IV SCH (08:45)
[2019-06-05] MEDS: FERROUS SULFATE 300 MG/5 ML LIQD PO SCH ×3 (09:00→21:00)
[2019-06-05] MEDS: MEMANTINE 10 MG TAB PO SCH ×2 (09:00→16:26)
[2019-06-05] MEDS: MIDODRINE HCL 5 MG TABLET PO SCH ×3 (09:00→17:00)
[2019-06-05] MEDS: POTASSIUM CHLORIDE 20 MEQ TAB CR PO SCH ×2 (09:00→16:24)
--- NOTE | 2019-06-05 09:42 | Progress Note ---
DATE: SUBJECTIVE: Mr. Davis is a pleasant 58-year-old gentleman, currently comfortable in bed and wants to go home. REVIEW OF SYSTEMS: No nausea, vomiting, fever, chills, chest pain, shortness of breath, headache, dysuria, polyuria. PHYSICAL EXAMINATION: VITAL SIGNS: Blood pressure 109/75, temperature 96.5, pulse 102, respirations 22. GENERAL: Alert and oriented, no acute distress. CV: S1, S2. CHEST: Equal expansion. Clear to auscultation. No acute distress. ABDOMEN: Soft and nontender. No distention. HEENT: Moist. No pallor. No JVD. EXTREMITIES: Moves all. MEDICATIONS: Medication list reviewed. As far as Infectious Disease point of view, the patient is on vancomycin IV, off cefepime. LABORATORY STUDIES: White blood cells 10.64, hemoglobin 8.8, platelets 223. Sodium 140, potassium 3.9, creatinine 0.86, vancomycin trough 14.2 on 06/03/2019. SEROLOGY: C difficile negative on 06/03/2019. COVID-19 negative on 05/25/2019. MICROBIOLOGY: No new microbiology studies available. RADIOLOGY STUDIES: No new radiology studies available. ASSESSMENT AND PLAN: 1. Sepsis, resolved. 2. Psoas abscess, status post percutaneous drain placement. 3. Diabetes. 4. Diabetic foot ulcer. 5. Neurogenic bladder with suprapubic catheter. 6. Urinary tract infection. 7. Pyelonephritis. Abscess culture was negative on 05/30/2019. Blood culture was negative on 05/25/2019. The patient is status post retrograde pyelogram on 05/31/2019. We renewed cefepime. Continue vancomycin. Vancomycin trough is acceptable. The patient also has severe debility, seen by Dr. Mcarthur in rehab, and per his note, it is too early to be evaluated for inpatient rehab. The patient remains severely debilitated. This case was discussed with Dr. Barrett. Please refer to chart for more information. Dictated by Ramos Pedroza PA-C (Al) Lasha Barrett MD /MODL /[id number]
[2019-06-05] MEDS: BALSAM PERU/CASTOR OIL 60 GM OINT...G. TP SCH (10:00)
[2019-06-06] VITALS (7 sets, daily range): BP systolic 89–157; BP diastolic 54–89
[2019-06-06] MEDS: FUROSEMIDE 20 MG TAB PO SCH (05:57)
[2019-06-06] MEDS: QUETIAPINE FUMARATE 25 MG TAB PO SCH ×3 (05:57→22:19)
[2019-06-06] MEDS: FAMOTIDINE 20 MG TAB PO SCH ×2 (05:57→16:22)
[2019-06-06] MEDS: INSULIN LISPRO 100 UNIT/1 ML 3ML VIAL SQ SCH ×4 (08:35→22:21)
[2019-06-06] MEDS: FERROUS SULFATE 300 MG/5 ML LIQD PO SCH ×3 (08:35→22:19)
[2019-06-06] MEDS ORDERED: SODIUM CHLORIDE 0.9% 1000ML 1,000 ML IV ONE (09:00)
[2019-06-06] MEDS ORDERED: ONDANSETRON HCL 4 MG ORAL DISINTEGRATING TAB PO PRN (09:00)
[2019-06-06] MEDS: MEMANTINE 10 MG TAB PO SCH ×2 (09:02→17:11)
[2019-06-06] MEDS: MIDODRINE HCL 5 MG TABLET PO SCH ×3 (09:02→17:11)
[2019-06-06 09:20] LABS: BASOPHILS # (AUTO) 0.1 (0.0-0.1); BASOPHILS % 0.6 % (0.0-1.0); EOSINOPHILS # (AUTO) 0.3 (0.0-0.4); EOSINOPHILS % 2.4 % (0.0-6.0); HEMATOCRIT 28.2 % (38.2-49.6); LYMPHOCYTES # (AUTO) 2.5 (1.0-3.2); LYMPHOCYTES % 22.9 % (18.0-39.1); MEAN CORPUSCULAR HEMOGLOBIN 29.2 pg (28-32); MEAN CORPUSCULAR HGB CONC 31.9 g/dL (31-35); MEAN CORPUSCULAR VOLUME 91.6 fL (81-99); MONOCYTES # (AUTO) 0.9 (0.2-0.8); MONOCYTES % 8.4 % (4.4-11.3); NEUTROPHILS # (AUTO) 7.1 (2.1-6.9); NEUTROPHILS % 65.1 % (38.7-80.0); PLATELET COUNT 237 x10e3/uL (140-360); RED BLOOD COUNT 3.08 x10e6/uL (4.3-5.7); RED CELL DISTRIBUTION WIDTH 19.5 % (11.7-14.4)
--- NOTE | 2019-06-06 09:26 | Progress Note ---
DATE: SUBJECTIVE: Mr. Davis is a pleasant 58-year-old gentleman, comfortable in bed, currently in no acute distress. Discussed with the nurse, uneventful night. REVIEW OF SYSTEMS: He is awake and no complaints. No nausea, vomiting, fever, chills, chest pain, shortness of breath, headache, dysuria, polyuria. OBJECTIVE: VITAL SIGNS: Temperature is 96.1, pulse is 110, respirations 18, and blood pressure is 91/54. GENERAL: Comfortable in bed, alert and oriented, easily awake, in no acute distress. No complaints at all. CV: S1 and S2. CHEST: Equal expansion, clear to auscultation. No acute distress. ABDOMEN: Soft and nontender. No distention. HEENT: Moist. No pain. No JVD. The patient has a right upper extremity PICC line and also he has left-sided percutaneous drain in place. MEDICATIONS: Medication list reviewed. As far as Infectious Disease point of view, the patient is on cefepime and vancomycin; however, vancomycin is not on the list, most likely for new vancomycin IV. LABORATORY STUDIES: Vancomycin trough was 14.2 on 06/02. No new CBC or BMP available today. No new microbiology studies available and no new radiology studies available. ASSESSMENT AND PLAN: 1. psoas abscess. 2. Hypotensive. 3. Tachycardia. 4. Recent sepsis, resolved. 5. Leukocytosis resolved. 6. Diabetes. 7. Diabetic foot ulcer. 8. Neurogenic bladder, status post suprapubic catheter. 9. Pyelonephritis. As mentioned above, the patient has right upper extremity PICC line. We will continue antibiotics at this point. Renew vancomycin IV. We consult Interventional Radiology for evaluation and possibly removal of the percutaneous drain. Continue suprapubic and await inpatient rehab approval. Further management of this patient is based on daily findings on laboratory and physical examination. The patient is most likely dehydrated. I spoke with the attending physician. This case was discussed with Dr. Barrett in detail. Please refer to chart for more information. Dictated by Ramos Pedroza PA-C (Al) Lasha Barrett MD /MODL /[id number]
[2019-06-06] MEDS ORDERED: ALTEPLASE RECOMBINANT 2 MG/2 ML VIAL IV ONE (09:30)
[2019-06-06] MEDS: CEFEPIME 1GM/NS 0.9% 50 ML 50 ML IV SCH ×2 (10:10→22:06)
--- NOTE | 2019-06-06 10:16 | Diagnostic Imaging Report ---
Limited ultrasound of the abdomen. Impression: Limited ultrasound of the left flank was performed for the assessment of residual fluid collection prior to drainage catheter removal. No residual fluid collection was identified. The left flank drain was then removed. Signed by: Rome Ramos MD on 06/06/2019 10:12 AM
[2019-06-06] MEDS: VANCOMYCIN 1GM/NS 250 ML 250 ML IV SCH (12:10)
[2019-06-06] MEDS ORDERED: SODIUM CHLORIDE 0.9% 1000ML 1,000 ML ONE (12:28)
[2019-06-06] MEDS: BALSAM PERU/CASTOR OIL 60 GM OINT...G. TP SCH (16:47)
[2019-06-06] MEDS: HYDROCODONE/APAP 7.5MG-325MG 1 EA TAB PO PRN (22:20)
[2019-06-07] VITALS (8 sets, daily range): BP systolic 86–130; BP diastolic 57–94
[2019-06-07] MEDS: FAMOTIDINE 20 MG TAB PO SCH ×2 (08:35→15:30)
[2019-06-07] MEDS: QUETIAPINE FUMARATE 25 MG TAB PO SCH ×4 (08:35→22:00)
[2019-06-07] MEDS: FERROUS SULFATE 300 MG/5 ML LIQD PO SCH ×3 (08:35→20:15)
[2019-06-07] MEDS: MEMANTINE 10 MG TAB PO SCH ×2 (08:36→16:28)
[2019-06-07] MEDS: MIDODRINE HCL 5 MG TABLET PO SCH ×4 (08:36→16:28)
[2019-06-07] MEDS: CEFEPIME 1GM/NS 0.9% 50 ML 50 ML IV SCH ×2 (08:47→20:15)
[2019-06-07] MEDS: BALSAM PERU/CASTOR OIL 60 GM OINT...G. TP SCH (08:49)
[2019-06-07] MEDS: VANCOMYCIN 1GM/NS 250 ML 250 ML IV SCH (09:30)
--- NOTE | 2019-06-07 09:54 | Progress Note ---
DATE: REVIEW OF SYSTEMS: No nausea, no vomiting, no fever, no chills. No chest pain. No shortness of breath and he wants to go home. He seems to be agitated a little bit about it. PHYSICAL EXAMINATION: VITAL SIGNS: Temperature 98.6, pulse is 106, respirations 16, blood pressure 95/69. GENERAL: Alert and oriented, agitated with a little bit. CV: S1 and S2. CHEST: Equal expansion. Clear to auscultation. No acute distress. ABDOMEN: Soft and nontender. No distention. HEENT: Moist. No pallor. No JVD. EXTREMITIES: Moves all. No edema. MEDICATIONS: Medication list reviewed. As far as Infectious Disease point of view, the patient is on cefepime and vancomycin IV. LABORATORY STUDIES: White blood cells 10.9 yesterday. No new CBC or BMP from today. MICROBIOLOGY: Blood cultures pending. RADIOLOGY STUDIES: The patient is seen by Interventional Radiology yesterday, status post ultrasound showing limited ultrasound of the left flank. No residual fluid collection was notified, therefore percutaneous drain was removed. ASSESSMENT AND PLAN: This is a 58-year-old gentleman with: 1. Psoas abscess, status post percutaneous drain placement and removal after ultrasound suggested no residual fluid collection. 2. Hypotension, which seems to be in the morning, other than that, blood pressure systolic is in low 100s. Clinically, no acute distress. 3. Recent history of sepsis, blood culture in progress. 4. Mild leukocytosis. 5. Diabetes. 6. Diabetic foot ulcer. 7. Pyelonephritis. 8. Neurogenic bladder, status post suprapubic catheter. 9. Currently on vancomycin IV and Zosyn. Vancomycin trough was 14.2 on 06/03/2019. Currently, monitor the patient. Discussed with Dr. Barrett in details. Please refer to chart for more information. Dictated by Ramos Pedroza PA-C (Al) Lasha Barrett MD /MODL /[id number]
[2019-06-07] MEDS: INSULIN LISPRO 100 UNIT/1 ML 3ML VIAL SQ SCH ×4 (10:30→21:11)
[2019-06-08] VITALS (9 sets, daily range): BP systolic 108–149; BP diastolic 4–92
[2019-06-08] MEDS ORDERED: ZIPRASIDONE 20 MG VIAL IM PRN ×2 (01:15→05:30)
[2019-06-08] MEDS ORDERED: OLANZAPINE 5 MG TAB PO SCH (05:30)
[2019-06-08 06:42] LABS: BASOPHILS # (AUTO) 0.1 (0.0-0.1); BASOPHILS % 0.7 % (0.0-1.0); EOSINOPHILS # (AUTO) 0.2 (0.0-0.4); EOSINOPHILS % 3.3 % (0.0-6.0); HEMATOCRIT 27.2 % (38.2-49.6); HEMOGLOBIN 8.4 g/dL (14.0-18.0); LYMPHOCYTES # (AUTO) 2.2 (1.0-3.2); LYMPHOCYTES % 31.8 % (18.0-39.1); MEAN CORPUSCULAR HEMOGLOBIN 28.5 pg (28-32); MEAN CORPUSCULAR HGB CONC 30.9 g/dL (31-35); MEAN CORPUSCULAR VOLUME 92.2 fL (81-99); MONOCYTES # (AUTO) 0.5 (0.2-0.8); MONOCYTES % 7.6 % (4.4-11.3); NEUTROPHILS # (AUTO) 3.9 (2.1-6.9); NEUTROPHILS % 56.3 % (38.7-80.0); PLATELET COUNT 190 x10e3/uL (140-360); RED BLOOD COUNT 2.95 x10e6/uL (4.3-5.7); RED CELL DISTRIBUTION WIDTH 19.1 % (11.7-14.4)
[2019-06-08 07:03] LABS: ANION GAP 8.3 mmol/L (8-16); BLOOD UREA NITROGEN 26 mg/dL (7-26); BUN/CREATININE RATIO 25 (6-25); CALCIUM 7.8 mg/dL (8.4-10.2); CARBON DIOXIDE 32 mmol/L (22-29); CHLORIDE 102 mmol/L (98-107); CREATININE, SERUM 1.02 mg/dL (0.72-1.25); EST GLOMERULAR FILTRATION RATE > 60 ML/MIN (60-); GLUCOSE 304 mg/dL (74-118); POTASSIUM 4.3 mmol/L (3.5-5.1); SODIUM 138 mmol/L (136-145)
[2019-06-08] MEDS: FAMOTIDINE 20 MG TAB PO SCH ×2 (07:53→18:00)
[2019-06-08] MEDS: INSULIN LISPRO 100 UNIT/1 ML 3ML VIAL SQ SCH ×4 (07:54→21:00)
[2019-06-08] MEDS: FERROUS SULFATE 300 MG/5 ML LIQD PO SCH ×3 (09:00→22:01)
[2019-06-08] MEDS ORDERED: SODIUM CHLORIDE 0.9% 250ML 250 ML ONE (09:24)
[2019-06-08] MEDS ORDERED: HYDROCODONE/APAP 10MG-325MG TAB PO PRN (09:30)
[2019-06-08] MEDS: TRAMADOL HCL 50 MG TAB PO SCH ×3 (09:30→22:02)
[2019-06-08] MEDS: SENNA-S TABLET PO SCH ×2 (09:45→18:00)
[2019-06-08] MEDS: MEMANTINE 10 MG TAB PO SCH ×2 (10:12→18:00)
[2019-06-08] MEDS: CEFEPIME 1GM/NS 0.9% 50 ML 50 ML IV SCH ×2 (10:12→22:01)
[2019-06-08] MEDS: MIDODRINE HCL 5 MG TABLET PO SCH ×3 (10:12→18:00)
[2019-06-08] MEDS: BALSAM PERU/CASTOR OIL 60 GM OINT...G. TP SCH (10:12)
[2019-06-08] MEDS: VANCOMYCIN 1GM/NS 250 ML 250 ML IV SCH (10:13)
[2019-06-08] MEDS: OLANZAPINE 5 MG TAB PO SCH ×2 (10:13→18:00)
--- NOTE | 2019-06-08 10:54 | Progress Note ---
DATE: SUBJECTIVE: The patient is comfortable in bed. Again, all he wants to do is just wants to go home. No nausea, no vomiting, no fever, no chills, no chest pain, no shortness of breath. No headache. No dysuria. No polyuria. PHYSICAL EXAMINATION: VITAL SIGNS: Temperature 97.7, pulse 116, respirations 18, and blood pressure 114/86. GENERAL: Alert and oriented, agitated a little bit. CV: S1 and S2. CHEST: Equal expansion. Clear to auscultation. No acute distress. ABDOMEN: Soft and nontender. No distention. HEENT: Moist. No pallor. No JVD. EXTREMITIES: Moves all. No edema. MEDICATIONS: Medication list reviewed. As far as Infectious Disease point of view, the patient is on vancomycin IV and cefepime. LABORATORY STUDIES: White blood cells 6.98, hemoglobin 8.4, platelet 190. Sodium 138, potassium 4.3, creatinine 1.02. Toxicology; vancomycin trough 14.4 on 05/24/2019. SEROLOGY: No new serology available. Clostridium difficile was negative on 06/02. COVID-19 was negative on 05/24. MICROBIOLOGY: No new microbiology studies available. Blood culture from 06/05 is negative so far. RADIOLOGY: No new radiology studies available. ASSESSMENT AND PLAN: 1. Psoas abscess, status post percutaneous drain and removal after doing ultrasound and finding no residual fluid collection. 2. Leukocytosis, resolved. 3. Diabetes. 4. Diabetic foot ulcer. 5. Pyelonephritis. 6. Neurogenic bladder-status post suprapubic catheter. 7. The patient is on vancomycin IV and cefepime. Vancomycin trough was acceptable as mentioned above. Discussed with Dr. Barrett in details. Currently monitor the patient clinically and follow up with the labs. Available labs and notes reviewed. Dictated by Ramos Pedroza PA-C (Al) Lasha Barrett MD /MODL /[id number]
[2019-06-08] MEDS ORDERED: ALTEPLASE RECOMBINANT 2 MG/2 ML VIAL IV ONE (11:30)
--- NOTE | 2019-06-08 13:26 | Progress Note ---
DATE: SUBJECTIVE: The patient had confusion last night and required additional Geodon. Today, he is awake and asking to go home. He is also asking for a sandwich. He has no fevers. PHYSICAL EXAMINATION: VITAL SIGNS: The blood pressure is 108/77, the saturation is 100%. The pulse is 108. HEENT: Shows no facial swelling or erythema. CARDIAC: Reveals a regular rate and rhythm with normal S1 and S2. There are no murmurs or rubs. LUNGS: Auscultation of lungs reveals clear breath sounds bilaterally. There is no wheezing. ABDOMEN: Soft and nontender. There is no rebound or guarding. EXTREMITIES: Shows no leg edema or calf tenderness. LABORATORY DATA: White blood cell count is 6.98 and the hemoglobin is 8.4. The platelet count is 190. BUN to creatinine ratio is 26 to 1.02 and the blood sugars between 217 and 350. IMPRESSION: 1. Psoas abscess, status post percutaneous drainage. 2. Metabolic encephalopathy. 3. Diabetes. 4. Diabetic neuropathy. 5. Neurogenic bladder. PLAN: 1. Discussed disposition with Dr. Corado, Dr. Barrett, and case management. 2. Continue current antibiotics. 3. Monitor mental status. Yamil Almeida MD [facility]/MODL /[id number]
[2019-06-08] MEDS ORDERED: TRAZODONE HCL 50 MG TAB PO SCH (21:00)
[2019-06-09 00:22] VITALS: BP 131/74
[2019-06-09 00:35] VITALS: BP 131/74
[2019-06-09 04:51] VITALS: BP 116/88
[2019-06-09] MEDS: TRAMADOL HCL 50 MG TAB PO SCH (05:24)
[2019-06-09] MEDS: INSULIN LISPRO 100 UNIT/1 ML 3ML VIAL SQ SCH (08:18)
[2019-06-09 08:30] VITALS: BP 115/84
[2019-06-09 08:32] VITALS: BP 115/84
[2019-06-09] MEDS: FAMOTIDINE 20 MG TAB PO SCH (08:49)
[2019-06-09] MEDS: SENNA-S TABLET PO SCH (08:50)
[2019-06-09] MEDS: FERROUS SULFATE 300 MG/5 ML LIQD PO SCH (08:50)
[2019-06-09] MEDS: MIDODRINE HCL 5 MG TABLET PO SCH (08:50)
[2019-06-09] MEDS: CEFEPIME 1GM/NS 0.9% 50 ML 50 ML IV SCH (08:50)
[2019-06-09] MEDS: BALSAM PERU/CASTOR OIL 60 GM OINT...G. TP SCH (08:50)
[2019-06-09] MEDS: MEMANTINE 10 MG TAB PO SCH (08:50)
[2019-06-09] MEDS: OLANZAPINE 5 MG TAB PO SCH (08:50)
--- NOTE | 2019-06-09 08:52 | Progress Note ---
DATE: SUBJECTIVE: The patient is less confused today. He is asking of leaving. PHYSICAL EXAMINATION: VITAL SIGNS: The blood pressure is 116/88 and saturation is 98%. HEENT: Shows no facial swelling or erythema. CARDIAC: Reveals regular rate and rhythm with normal S1, S2. LUNGS: Auscultation of lungs reveals rhonchorous breath sounds bilaterally. There is no wheezing. ABDOMEN: Soft, nontender. There is no rebound or guarding. IMPRESSION: 1. Psoas abscess, status post percutaneous drainage. 2. Metabolic encephalopathy. 3. Diabetes. 4. Diabetic neuropathy. 5. Neurogenic bladder. PLAN: 1. Probable discharge today. 2. Complete current antibiotics. 3. Monitor mental status. 4. Continue to monitor and control blood sugars. Yamil Almeida MD [facility]/MODL /[id number]
--- NOTE | 2019-06-09 10:13 | Discharge Summary ---
PRIMARY CARE PHYSICIAN: Dr. Ron Corado. CONSULTANTS: 1. Dr. Oliverio Pond. 2. Dr. Chato Mcarthur. 3. Dr. Dereje Oneill. 4. Dr. Yamil Almeida. 5. Dr. Lasha Barrett. FINAL DIAGNOSES: 1. Status post healthcare-acquired pneumonia. The patient was previously hospitalized and was at skilled facility correction. 2. Urinary retention with recurrent urinary tract infection associated with neurogenic urinary bladder, status post suprapubic catheter placement by Dr. Dereje Oneill. 3. Status post toxic encephalopathy with delirium, resolved. 4. Hypoglycemic episode, resolved. 5. Left psoas muscle abscess, status post IR drainage. 6. Debilitated, complicated by diabetes type 2, associated with neuropathy, ambulatory dysfunction. 7. Coronavirus disease 2019, ruled out. 8. Chronic pain syndrome. 9. Chronic anemia, status post blood transfusion and iron infusion. HISTORY OF PRESENT ILLNESS: The patient is a 58-year-old male. This is his third admission to the hospital within a month. Previously, the patient had multiple admissions due to multiple problems. He was subsequently sent to skilled facility at [facility]. There, the patient did not last that long, came back into the hospital, hypotensive, hypoglycemic, septic with shock on admission with low blood pressure, low blood sugar, and the finding of healthcare-acquired pneumonia. The patient was admitted to the ICU, pressor support, IV fluid rehydration, and support for blood pressure and antibiotic aggressively with Dr. Barrett consulted. The patient had bilateral pleural effusion with bilateral multifocal pneumonia. The patient was treated. He did better in the ICU and transferred out to the medical floor. The patient remained nonambulatory. He complained of increasing low back pain. He was very weak. His hemoglobin was 6.6 and hematocrit was 21.3. The patient did receive 2 units of blood transfusion. The patient's further workup showed that he has left paraspinal abscess in the left psoas muscle. A drain was placed and subsequently removed after the abscess resolved. He was also with neurogenic urinary bladder with recurrent urinary tract infection and subsequently had a suprapubic catheter placement as well. Overall, the patient is doing much better, now he is stable. He will go to the skilled facility for continuation with his physical therapy. No further IV antibiotics needed. The patient has suprapubic catheter. He will go with the following medications. Tylenol as needed, Pepcid 20 mg twice a day, ferrous sulfate 300 mg t.i.d., insulin sliding scale coverage, [place] p.r.n. for pain, Namenda 5 mg b.i.d., midodrine 10 mg t.i.d., olanzapine 2.5 mg b.i.d., Senna-S one tablet b.i.d., tramadol 50 mg q.8 scheduled for pain, and trazodone 50 mg at bedtime. The patient is stable. He will need further medication adjustment once he gets out of the hospital. The patient if possible will be admitted to Dr. Ilan Meek at the correction. MD TI Zepeda/MODL /[id number]
[2019-06-09 10:37] LABS: ABG PO2 60 mmHg (80-90)
[2019-06-09 12:35] VITALS: BP 100/82
== END 2019-06-09 13:18 | DRG 871 ==
LOC: ER 16:45 → ERHOLD 19:14 → ICU 05-26 02:29 → OBSVTOIN 05-26 09:09 → MED/SURG3 05-28 10:58 → MED/SURG 06-02 15:48 → MED/SURG3 06-07 11:40
PROVIDERS: ADMIT Internal Medicine; ATTEND Internal Medicine
PROC: 5A1935Z Respiratory Ventilation, Less than 24 Consecutive Hours (ICD-10-PCS; principal; 2019-05-26)
PROC: 0BH17EZ Insertion of Endotracheal Airway into Trachea, Via Natural or Artificial Opening (ICD-10-PCS; 2019-05-26)
PROC: 8E0ZXY6 Isolation (ICD-10-PCS; 2019-05-26)
PROC: 02HV33Z Insertion of Infusion Device into Superior Vena Cava, Percutaneous Approach (ICD-10-PCS; 2019-05-26)
PROC: B548ZZA Ultrasonography of Superior Vena Cava, Guidance (ICD-10-PCS; 2019-05-26)
PROC: 30233N1 Transfusion of Nonautologous Red Blood Cells into Peripheral Vein, Percutaneous Approach (ICD-10-PCS; 2019-05-26)
PROC: 0W9J30Z Drainage of Pelvic Cavity with Drainage Device, Percutaneous Approach (ICD-10-PCS; 2019-05-30)
PROC: BT141ZZ Fluoroscopy of Kidneys, Ureters and Bladder using Low Osmolar Contrast (ICD-10-PCS; 2019-05-31)
PROC: 0T9B80Z Drainage of Bladder with Drainage Device, Via Natural or Artificial Opening Endoscopic (ICD-10-PCS; 2019-05-31)
DX: A41.9 Sepsis, unspecified organism (principal); J96.00 Acute respiratory failure, unspecified whether with hypoxia or hypercapnia; J69.0 Pneumonitis due to inhalation of food and vomit; G92 Toxic encephalopathy; K68.12 Psoas muscle abscess; R65.21 Severe sepsis with septic shock; E46 Unspecified protein-calorie malnutrition; N10 Acute pyelonephritis; L97.428 Non-pressure chronic ulcer of left heel and midfoot with other specified severity; N13.30 Unspecified hydronephrosis; K74.60 Unspecified cirrhosis of liver; D50.0 Iron deficiency anemia secondary to blood loss (chronic); K31.84 Gastroparesis; K21.9 Gastro-esophageal reflux disease without esophagitis; Z88.5 Allergy status to narcotic agent; Z83.3 Family history of diabetes mellitus; Z82.49 Family history of ischemic heart disease and other diseases of the circulatory system; T38.3X5A Adverse effect of insulin and oral hypoglycemic [antidiabetic] drugs, initial encounter; E11.43 Type 2 diabetes mellitus with diabetic autonomic (poly)neuropathy; Z91.19 Patient's noncompliance with other medical treatment and regimen; Z87.440 Personal history of urinary (tract) infections; N31.9 Neuromuscular dysfunction of bladder, unspecified; D64.9 Anemia, unspecified; L89.152 Pressure ulcer of sacral region, stage 2; R53.81 Other malaise; Z91.81 History of falling; E11.649 Type 2 diabetes mellitus with hypoglycemia without coma; Z86.14 Personal history of Methicillin resistant Staphylococcus aureus infection; E11.621 Type 2 diabetes mellitus with foot ulcer; E86.0 Dehydration; G89.4 Chronic pain syndrome
CPT/HCPCS: 36415; 36569; 36600; 49406; 49424; 51700; 70450; 71045; 71260; 72157; 72158; 72197; 74420; 74470; 76705; 80048; 80053; 80202; 81001; 82140; 82550; 82553; 82607; 82728; 82746; 82784; 82805; 82948; 83010; 83036; 83540; 83605; 83615; 84165; 84443; 84466; 84484; 85025; 85045; 85610; 85730; 86592; 86704; 86706; 86803; 86850; 86900; 86920; 87040; 87070; 87205; 87340; 87400; 87493; 87635; 93005; 93306; 94002; 96372; 97139; 99152; 99251; 99285; C1769; G0378; J0330; J0456; J0692; J1650; J1756; J1885; J1940; J2001; J2060; J2250; J2270; J2405; J2543; J2710; J2997; J3010; J3370; J3486; J7030; J7050; P9016; Q9967

== ENCOUNTER 2019-07-20 14:40 | Outpatient (RCR) | payer MEDICARE ==
[~2019-07-20 14:40] MED LIST changes: +LIDOCAINE/PRILOCAINE 2.5-2.5% KIT ONE; +MAGNESIUM OXID400 MG PO; +MELATONIN3 MG PO; +MULTIVITAMINS1 EAC7; +NORCO 10-325 T1 EACH
== END 2019-08-15 ==
LOC: WCC 14:40
PROVIDERS: ATTEND Family Medicine Adult Medicine
DX: E11.40 Type 2 diabetes mellitus with diabetic neuropathy, unspecified (principal); L89.153 Pressure ulcer of sacral region, stage 3; L89.620 Pressure ulcer of left heel, unstageable; L89.890 Pressure ulcer of other site, unstageable; K72.10 Chronic hepatic failure without coma; N31.9 Neuromuscular dysfunction of bladder, unspecified; D53.1 Other megaloblastic anemias, not elsewhere classified; I95.9 Hypotension, unspecified; Z74.01 Bed confinement status
CPT/HCPCS: 87071; 87075; 87186; 87205

== ENCOUNTER → 2019-07-21 | Outpatient (CLI) | payer MEDICARE ==
[~2019-07-21] MED LIST changes: -LIDOCAINE/PRILOCAINE 2.5-2.5% KIT ONE
--- NOTE | 2019-07-24 09:27 | Diagnostic Imaging Report ---
EXAM: FOOT COMPLETE BILATERAL, HEEL LT DATE: 07/21/2019 4:15 PM INDICATION: Heel ulcer COMPARISON: None FINDINGS: AP, oblique, and lateral views were obtained of the bilateral feet as well as dedicated images of the left heel. There is evidence for acute fracture or dislocation. Bony mineralization is diffusely decreased which limits evaluation. Scattered degenerative changes noted within the midfoot bilaterally. Mild posterior calcaneal spurring noted bilaterally. No focal lytic or blastic abnormality is identified. Lucency/soft tissue defect noted within the soft tissues of the left heel likely representing the patient's known ulcer. There is no evidence for underlying osseous erosive change to suggest osteomyelitis. Gastric calcifications noted bilaterally. No radiopaque foreign body is appreciated. IMPRESSION: Soft tissue ulcer noted within the left heel without radiographic evidence for underlying osteomyelitis. Signed by: Dr. Isrrael Garduno MD on 07/24/2019 9:23 AM
--- NOTE | 2019-07-24 09:30 | Diagnostic Imaging Report ---
EXAM: COCCYX DATE: 07/21/2019 4:15 PM INDICATION: Sacral ulcer COMPARISON: MRI from 05/29/2019 FINDINGS: The bony mineralization appears diffusely decreased limiting evaluation. There is no evidence for acute fracture or dislocation. No focal lytic or blastic abnormality is identified. No radiographically evident focal erosive process is identified to suggest osteomyelitis in this patient with reported history of sacral ulcer. Vascular calcifications and phleboliths noted within the pelvis. IMPRESSION: No acute radiographic abnormality identified within the sacrum/coccyx, specifically no radiographic evidence for osteomyelitis. If there is persistent clinical concern for osteomyelitis, further evaluation could be performed with dedicated MRI. Signed by: Dr. Isrrael Garduno MD on 07/24/2019 9:27 AM
== END ==
LOC: RAD 15:30
PROVIDERS: ATTEND Family Medicine Adult Medicine
DX: L89.153 Pressure ulcer of sacral region, stage 3 (principal); L89.620 Pressure ulcer of left heel, unstageable; L89.890 Pressure ulcer of other site, unstageable
CPT/HCPCS: 72220